=== PATIENT | female | born 1995 | race Caucasian/White ===

== ENCOUNTER 2020-08-26 18:20 | Outpatient (CLI) | payer OTHER ==
[2020-08-26] MEDS ORDERED: METOCLOPRAMIDE 10 MG TABLET PO SCH (19:00)
[2020-08-26 19:10] LABS: BASOPHILS % (AUTO) 0.2 %; EOSINOPHILS # (AUTO) 0.2 10^3/uL (0.0-0.7); EOSINOPHILS % (AUTO) 2.2 %; HGB - HEMOGLOBIN 10.8 g/dL (12.0-16.0); LYMPHOCYTES # (AUTO) 2.2 10^3/uL (1.5-3.5); LYMPHOCYTES % (AUTO) 19.9 %; MEAN CORPUSCULAR HEMOGLOBIN 31.8 pg (27.0-31.0); MEAN CORPUSCULAR HGB CONC 32.9 g/dL (32.0-36.0); MEAN CORPUSCULAR VOLUME 96.5 fL (81.0-99.0); MONOCYTES % (AUTO) 8.8 %; NEUTROPHILS # (AUTO) 7.6 10^3/uL (1.5-6.6); NEUTROPHILS % (AUTO) 67.7 %; PLT - PLATELET COUNT 221 10^3/uL (130-450); RED CELL DISTRIBUTION WIDTH 12.6 % (12.0-15.0); WHITE BLOOD COUNT 11.1 x10^3/uL (4.8-10.8)
[2020-08-26 19:25] LABS: ALBUMIN 2.8 g/dL (3.2-5.5); ALBUMIN/GLOBULIN RATIO 0.7 (1.0-2.2); BILIRUBIN,TOTAL 0.4 mg/dL (0.2-1.0); CALCIUM 8.7 mg/dL (8.5-10.3); CREATININE 0.6 mg/dL (0.4-1.0); TOTAL PROTEIN 6.7 g/dL (6.7-8.2)
[2020-08-26 19:51] LABS: CREATININE,URINE 171.1 mg/dL; PROTEIN/CREATININE RATIO,URINE 0.1 (<=0.2)
[2020-08-26] MEDS ORDERED: oxyCODONE 5 MG TABLET PO PRN (19:58)
--- NOTE | 2020-08-26 19:58 | PROVIDER PROGRESS NOTE ---
- HPI Chief Complaint: Hypertension/PIH Current : Current EDU 12/12/20 Gestation 24 Weeks and 4 Days 6 Para 3 Vital Signs Temperature 99.0 F 08/26/20 19:08 Heart Rate 91 08/26/20 19:08 Respiratory Rate 20 08/26/20 19:08 Blood Pressure 144/96 H 08/26/20 19:08 O2 Saturation 98 08/26/20 19:08 Temperature 99.0 F 08/26/20 19:10 Heart Rate 91 08/26/20 19:08 Respiratory Rate 20 08/26/20 19:08 Blood Pressure 144/96 H 08/26/20 19:08 O2 Saturation 98 08/26/20 19:08 - Procedures Findings: Patient is a 25 yo at 24+4 wga here with headache and mild range blood pressures. Patient reports that she has been having severe headaches starting within the last two weeks. No vision change at present but endorses photophobia with severe RUEDA. No RUQ pain. Has taken tylenol for pain with minimal response. Rated 4-5 across forehead and and up the midline. Hx of pre-eclampsia with IOL at 37 weeks with first and GHTN with following two pregnancies. Has only had one PNC visit with [facility] with at 19 weeks. Moved to [facility] from [place] in June. Short interpregnancy interval with youngest child delivered in 04/2019. Has not yet started ASA. [facility] records not available at present. PMH: gestational HTN and pre-eclampsia PSH: Knee surgeryx2 SOC HX: Lives in [place] with and 3 children Patient and FOB active [employer] T: none E: none D: none Safe at home ROS: As per HPI, otherwise remaining systems are negative GEN: NAD RESP: nl effort CV: RR ABD: gravid, S&NT. No TTP in RUQ EXT: WWP NEURO: A&O PSYCH: appropriate affect EFM 150 mod radames 10 x10 accels intermittent vars--> AGA TOCO: quiet A/P: 25 yo at 24+4 wga here with headache and mild range BPs PIH: mild ranges BPs -PIH labs wnl and P:C 0.1 -RUEDA may be independent of BPs Reglan 10 mg po x1 If not improved, given oxycodone 5 mg po x1 If not improved, review case with M -Stating ASA 81 mg po daily now -Consider possiblilty of CHTN given absence of records FWB: AGA tracing Under observation for RUEDA in the setting of mild gestational HTN DC to home with improvement of RUEDA If unable to clear RUEDA, review with MFM
[2020-08-26] MEDS ORDERED: ASPIRIN CHEW 81 MG TABLET PO SCH (20:00)
[2020-08-26 21:25] VITALS: BP 129/87
== END 2020-08-26 21:55 | disposition home or self-care (01) ==
LOC: WFO 18:20 → FBP 18:21 → WFO 21:55
PROVIDERS: ATTEND Obstetrics & Gynecology
DX: O13.2 Gestational [pregnancy-induced] hypertension without significant proteinuria, second trimester (principal); Z3A.24 24 weeks gestation of pregnancy
CPT/HCPCS: 80053; 82570; 84156; 85025; 99214; A9270

== ENCOUNTER 2020-08-27 12:15 | Emergency (ER) | payer OTHER | END 2020-08-27 12:34 | disposition home or self-care (01) | LOC: ED 12:15 | DX: Z53.21 Procedure and treatment not carried out due to patient leaving prior to being seen by health care provider (principal) | CPT/HCPCS: 99281 ==

== ENCOUNTER 2020-08-27 12:24 | Outpatient (CLI) | payer OTHER ==
[2020-08-27 13:07] VITALS: BP 112/72
[2020-08-27 13:22] LABS: BASOPHILS % (AUTO) 0.3 %; EOSINOPHILS # (AUTO) 0.2 10^3/uL (0.0-0.7); EOSINOPHILS % (AUTO) 1.6 %; HGB - HEMOGLOBIN 10.4 g/dL (12.0-16.0); LYMPHOCYTES # (AUTO) 1.6 10^3/uL (1.5-3.5); LYMPHOCYTES % (AUTO) 15.3 %; MEAN CORPUSCULAR HEMOGLOBIN 31.2 pg (27.0-31.0); MEAN CORPUSCULAR VOLUME 97.6 fL (81.0-99.0); MEAN PLATELET VOLUME 10.3 fL (7.9-10.8); MONOCYTES # (AUTO) 0.8 10^3/uL (0.0-1.0); NEUTROPHILS # (AUTO) 7.6 10^3/uL (1.5-6.6); NEUTROPHILS % (AUTO) 73.7 %; PLT - PLATELET COUNT 222 10^3/uL (130-450); RED BLOOD COUNT 3.33 10^6/uL (4.20-5.40); RED CELL DISTRIBUTION WIDTH 12.8 % (12.0-15.0); WHITE BLOOD COUNT 10.3 x10^3/uL (4.8-10.8)
[2020-08-27 13:27] LABS: ALBUMIN/GLOBULIN RATIO 0.8 (1.0-2.2); BILIRUBIN,TOTAL 0.4 mg/dL (0.2-1.0); CALCIUM 8.5 mg/dL (8.5-10.3); CREATININE 0.5 mg/dL (0.4-1.0); TOTAL PROTEIN 6.7 g/dL (6.7-8.2); URIC ACID 3.5 mg/dL (2.6-7.2)
[2020-08-27 13:43] LABS: CREATININE,URINE 41.7 mg/dL
[2020-08-27 13:50] LABS: TOTAL PROTEIN,URINE TIMED < 6 mg/dL
[2020-08-27] MEDS ORDERED: oxyCODONE 5 MG TABLET PO PRN (13:59)
--- NOTE | 2020-08-30 23:00 | PROVIDER PROGRESS NOTE ---
- HPI Chief Complaint: Other (severe headache) Current : Current EDU 12/12/20 Gestation 24 Weeks and 5 Days 6 Para 3 Vital Signs Temperature 98.4 F 08/27/20 12:35 Heart Rate 97 08/27/20 12:35 Respiratory Rate 16 08/27/20 12:35 Blood Pressure 123/80 08/27/20 12:35 O2 Saturation 96 08/27/20 12:35 Temperature 98.4 F 08/27/20 12:35 Heart Rate 89 08/27/20 13:00 Respiratory Rate 16 08/27/20 13:00 Blood Pressure 112/72 08/27/20 13:00 O2 Saturation 98 08/27/20 13:00 - Exam GEN: NAD HEENT: NCAT CV: RRR RESP: CTAB ABD: gravid, S&NT/ND. No RUQ tenderness EXT: WWP NEURO: Alert and oriented. No photophobia PSYCH: appropriate affect - Procedures NST Procedure: NST Procedure Start Date 08/27/20 Start Time 12:31 Stop Time 13:01 Vibroacoustic Stimulation Used No Patient States Movement Yes EFM 140 mod radames 15x15 accels, occ decels--> AGA TOCO: quiet Service Date of procedure: 08/27/20 Findings: 25 yo at 24+5 wga with headache No elevated blood pressures No concern for pre-eclampsia Provided with oxycodone 5 mg po x1 Prescribed fioricet for maintenance AGA/Cat I tracing for gestational age FU with routine OB care DX: Headache in
== END 2020-08-27 16:40 | disposition home or self-care (01) ==
LOC: WFO 12:24 → FBP 12:25 → WFO 16:40
PROVIDERS: ATTEND Obstetrics & Gynecology
DX: O99.891 Other specified diseases and conditions complicating pregnancy (principal); R51.9 Headache, unspecified; Z3A.24 24 weeks gestation of pregnancy
CPT/HCPCS: 59025; 80053; 82570; 84156; 84550; 85025; A9270

== ENCOUNTER 2020-09-15 12:34 | Outpatient (CLI) | payer OTHER ==
[2020-09-15 13:22] VITALS: BP 122/78
[2020-09-15 13:22] LABS: BILIRUBIN,URINE NEGATIVE (NEGATIVE); GLUCOSE, URINE (UA) NEGATIVE (NEGATIVE); KETONES,URINE (UA) NEGATIVE (NEGATIVE); LEUKOCYTE ESTERASE, URINE NEGATIVE (NEGATIVE); NITRITE,URINE NEGATIVE (NEGATIVE); OCCULT BLOOD,URINE TRACE-INTA (NEGATIVE); PROTEIN,URINE TRACE mg/dL (NEGATIVE); UROBILINOGEN,URINE 0.2 (NORMAL) E.U./dL (NORMAL)
[2020-09-15 13:43] LABS: CLARITY,URINE CLEAR (CLEAR)
[2020-09-15 13:44] LABS: BACTERIA,URINE Rare /HPF (None Seen); RBC,URINE None Seen /HPF (0-5); SQUAMOUS EPITHELIAL CELL,UR MOD Squamous (<= Few)
[2020-09-15 15:08] LABS: BASOPHILS % (AUTO) 0.2 %; EOSINOPHILS # (AUTO) 0.1 10^3/uL (0.0-0.7); EOSINOPHILS % (AUTO) 1.1 %; HGB - HEMOGLOBIN 10.6 g/dL (12.0-16.0); LYMPHOCYTES # (AUTO) 1.8 10^3/uL (1.5-3.5); MEAN CORPUSCULAR HEMOGLOBIN 30.4 pg (27.0-31.0); MEAN CORPUSCULAR HGB CONC 31.7 g/dL (32.0-36.0); MEAN CORPUSCULAR VOLUME 95.7 fL (81.0-99.0); MEAN PLATELET VOLUME 10.5 fL (7.9-10.8); MONOCYTES % (AUTO) 8.7 %; NEUTROPHILS # (AUTO) 8.3 10^3/uL (1.5-6.6); NEUTROPHILS % (AUTO) 72.9 %; PLT - PLATELET COUNT 203 10^3/uL (130-450); RED BLOOD COUNT 3.49 10^6/uL (4.20-5.40); RED CELL DISTRIBUTION WIDTH 12.6 % (12.0-15.0); WHITE BLOOD COUNT 11.4 x10^3/uL (4.8-10.8)
--- NOTE | 2020-09-15 15:14 | Ultrasound Report ---
PROCEDURE: OB Limited INDICATIONS: Cervical length OUTSIDE/PRIOR DATING DATA: No outside imaging available. Ordering physician ELVI is 12/12/2020 TECHNIQUE: Real-time scanning was performed of the fetus, with image documentation. Endovaginal scanning: Was performed COMPARISON: None. FINDINGS: A single living intrauterine gestation is present. Presentation: Cephalic Placenta: Placental position is anterior, without previa. Amniotic fluid index: 20.9 cm, 90% for gestational age. heart rate: 145 beats per minutes. Maternal cervical canal: 4.4 cm long; normal length is 2.5 cm or more. Evaluation of the stomach, kidneys, diaphragm, and facial profile are grossly unremarkable. IMPRESSION: Single living intrauterine with heart rate of 145 bpm in cephalic position. Cervix is closed. No placenta previa. SUSAN measures 20.9 cm. Borderline polyhydramnios. Reviewed by: Yonas Osman DO on 09/15/2020 2:13 PM FERNANDA Approved by: Yonas Osman DO on 09/15/2020 2:13 PM [facility] Station ID: [id number]
--- NOTE | 2020-09-15 15:14 | Ultrasound Report ---
PROCEDURE: OB Limited INDICATIONS: Cervical length OUTSIDE/PRIOR DATING DATA: No outside imaging available. Ordering physician ELVI is 12/12/2020 TECHNIQUE: Real-time scanning was performed of the fetus, with image documentation. Endovaginal scanning: Was performed COMPARISON: None. FINDINGS: A single living intrauterine gestation is present. Presentation: Cephalic Placenta: Placental position is anterior, without previa. Amniotic fluid index: 20.9 cm, 90% for gestational age. heart rate: 145 beats per minutes. Maternal cervical canal: 4.4 cm long; normal length is 2.5 cm or more. Evaluation of the stomach, kidneys, diaphragm, and facial profile are grossly unremarkable. IMPRESSION: Single living intrauterine with heart rate of 145 bpm in cephalic position. Cervix is closed. No placenta previa. SUSAN measures 20.9 cm. Borderline polyhydramnios. Reviewed by: Yonas Osman DO on 09/15/2020 2:13 PM FERNANDA Approved by: Yonas Osman DO on 09/15/2020 2:13 PM [facility] Station ID: [id number]
[2020-09-15 15:17] LABS: ALBUMIN 3.1 g/dL (3.2-5.5); ALBUMIN/GLOBULIN RATIO 0.8 (1.0-2.2); BILIRUBIN,TOTAL 0.4 mg/dL (0.2-1.0); CALCIUM 8.4 mg/dL (8.5-10.3); CREATININE 0.4 mg/dL (0.4-1.0); TOTAL PROTEIN 6.9 g/dL (6.7-8.2)
--- NOTE | 2020-09-15 16:35 | PROVIDER PROGRESS NOTE ---
- HPI Chief Complaint: Other (Abdominal pain) Current : Current EDU 12/12/20 Gestation 27 Weeks and 3 Days 6 Para 3 Vital Signs Temperature 99.7 F 09/15/20 12:51 Heart Rate 93 09/15/20 12:51 Respiratory Rate 18 09/15/20 12:51 Blood Pressure 123/85 H 09/15/20 12:51 O2 Saturation 100 09/15/20 12:51 Temperature 97.9 F 09/15/20 15:45 Heart Rate 88 09/15/20 13:20 Respiratory Rate 16 09/15/20 13:20 Blood Pressure 122/78 09/15/20 13:20 O2 Saturation 98 09/15/20 13:20 HPI: Patient has had lower abdominal pain for the past 2w. Quality is aching, burning, and cramping. Never fully goes away. Worse when changing positions: rolling over, going to sit up or sit down. Better after rest. Radiates to lower back. Location bilateral lower abdomen suprapubic area to 1/[address] up towards the umbilicus. Onset was not associated with anything noticeable. May be getting a bit worse over time but not sure. At its worst can be 7-8/10. At its best is about a 2/10. Has never had this before. Has tried tylenol which helps, baths help. Belly band did not help. ROS: No vaginal bleeding, loss of fluid, fevers, nausea, vomiting, constipation, diarrhea, dysuria, fever, or contractions. PMH remarkable for severe preeclampsia in the past. No hx of delivery. - Exam Alert, smiling, NAD EOM intact No respiratory distress CV: No LE edema Abd soft, tender lower 1/2 of lower abdomen, mild. No rebound or guarding. SVE closed/long/high with RN Fundus is nontender MSK: normal gait Neuro: normal gait Psych: normal affect - Procedures OB Procedure Performed: NST Diagnosis/Indication for NST: Other (Abdominal pain in ) NST Procedure: NST Procedure Start Date 09/15/20 Start Time 12:50 Stop Time 13:28 Vibroacoustic Stimulation Used No Patient States Movement Yes Service Date of procedure: 09/15/20 Procedure Details: Baseline: BPM 140 Variability: Moderate Accelerations: Present Decelerations: Absent Trends in FHR over time: no changes [place] contractions in 10 minutes: 0 Impression: reactive Category 1 NST Findings: Labs: neg FFN, contaminated UA, WBC 11, normal wet mount, normal LFT - Plan Plan: 25yo in 27th week with bilateral lower abdominal pain of c/w musculoskeletal pain. No evidence of UTI, labor, vaginitis, chorioamnionitis, appendicitis, or GI issues. --Has OB FUV in about 2w --Comfort care with rest, warm packs, ice, baths, tylenol --OK to do ibuprofen only for the next 48h and then never again: 400mg po q6h --OK to try chiropractic --F/u sooner PRN increasing pain or new associated symptoms.
[2020-09-15 19:46] LABS: TRICHOMONAS VAGINALIS DNA NEGATIVE (NEGATIVE)
== END 2020-09-15 16:15 | disposition home or self-care (01) ==
LOC: WFO 12:34 → FBP 12:42 → WFO 16:15
PROVIDERS: ATTEND Obstetrics & Gynecology
DX: O99.891 Other specified diseases and conditions complicating pregnancy (principal); R10.30 Lower abdominal pain, unspecified; Z3A.27 27 weeks gestation of pregnancy
CPT/HCPCS: 36415; 59025; 80053; 81001; 82731; 85025; 87086; 87210; 87491; 87591; 87661; 87797; 99213

== ENCOUNTER 2020-09-24 11:25 | Outpatient (CLI) | payer OTHER | END 2020-09-24 11:26 | disposition home or self-care (01) | LOC: LAB 11:25 | PROVIDERS: ATTEND Obstetrics & Gynecology | DX: O09.90 Supervision of high risk pregnancy, unspecified, unspecified trimester (principal); O26.899 Other specified pregnancy related conditions, unspecified trimester; Z67.91 Unspecified blood type, Rh negative | CPT/HCPCS: 36415; 86850 ==

== ENCOUNTER 2020-10-22 07:00 | Outpatient (CLI) | payer OTHER ==
[2020-10-22 16:43] LABS: CREATININE,URINE 262.4 mg/dL; PROTEIN/CREATININE RATIO,URINE 0.1 (<=0.2)
== END 2020-10-22 23:59 | disposition home or self-care (01) ==
LOC: LAB.R 07:00
PROVIDERS: ATTEND Obstetrics & Gynecology
DX: O16.9 Unspecified maternal hypertension, unspecified trimester (principal); O09.90 Supervision of high risk pregnancy, unspecified, unspecified trimester
CPT/HCPCS: 82570; 84156

== ENCOUNTER 2020-10-22 08:13 | Outpatient (CLI) | payer OTHER ==
--- OUTSIDE RECORDS SUMMARY | 2020-11-11 15:52 | EXTERNAL MEDICAL SUMMARY RPT | Continuity of Care Document ---
:1995 Demographics Phone Unavailable Preferred Language Unknown Marital Status Unknown Anabaptism Affiliation Unknown Race Unknown Ethnic Group Unknown Author Organization [facility] Address [address] [id number] Phone Social History date description facility [phone]
== END 2020-10-22 08:14 | disposition home or self-care (01) ==
LOC: LAB 08:13
PROVIDERS: ATTEND Obstetrics & Gynecology
DX: Z53.9 Procedure and treatment not carried out, unspecified reason (principal); O09.90 Supervision of high risk pregnancy, unspecified, unspecified trimester; O15.2 Eclampsia complicating the puerperium; Z36.89 Encounter for other specified antenatal screening; Z67.91 Unspecified blood type, Rh negative

== ENCOUNTER 2020-10-25 12:56 | Outpatient (CLI) | payer OTHER ==
[2020-10-25 14:28] LABS: HCT - HEMATOCRIT 31.5 % (37.0-47.0); HGB - HEMOGLOBIN 9.7 g/dL (12.0-16.0); MEAN CORPUSCULAR HEMOGLOBIN 28.4 pg (27.0-31.0); MEAN CORPUSCULAR HGB CONC 30.8 g/dL (32.0-36.0); MEAN CORPUSCULAR VOLUME 92.1 fL (81.0-99.0); MEAN PLATELET VOLUME 10.5 fL (7.9-10.8); RED BLOOD COUNT 3.42 10^6/uL (4.20-5.40); RED CELL DISTRIBUTION WIDTH 13.1 % (12.0-15.0); WHITE BLOOD COUNT 9.7 x10^3/uL (4.8-10.8)
[2020-10-25 20:19] LABS: ESTIMATED AVERAGE GLUCOSE 97 mg/dL (70-100)
== END 2020-10-25 12:57 | disposition home or self-care (01) ==
LOC: LAB 12:56
PROVIDERS: ATTEND Obstetrics & Gynecology
DX: O09.90 Supervision of high risk pregnancy, unspecified, unspecified trimester (principal); O16.9 Unspecified maternal hypertension, unspecified trimester; Z36.89 Encounter for other specified antenatal screening
CPT/HCPCS: 36415; 82950; 83036; 85027

== ENCOUNTER 2020-10-25 14:19 | Outpatient (CLI) | payer OTHER ==
[2020-10-25 14:30] VITALS: BP 124/83
--- NOTE | 2020-10-25 21:10 | PROCEDURE REPORT ---
- HPI Diagnosis/Indication for NST: Gestational Hypertension Current EDU 12/12/20 Gestation 33 Weeks and 1 Days 6 Para 3 Vital Signs Temperature 98.6 F 10/25/20 14:28 Heart Rate 99 10/25/20 14:28 Respiratory Rate 16 10/25/20 14:28 Blood Pressure 124/83 H 10/25/20 14:28 O2 Saturation 100 10/25/20 14:28 Temperature 98.6 F 10/25/20 14:28 Heart Rate 99 10/25/20 14:28 Respiratory Rate 16 10/25/20 14:28 Blood Pressure 124/83 H 10/25/20 14:28 O2 Saturation 100 10/25/20 14:28 - NST Procedure NST Procedure Start Date 10/25/20 Start Time 14:21 Stop Time 14:49 Vibroacoustic Stimulation Used No Patient States Movement Yes EFM 130 mod radames 15x15 accels no decels TOCO: Quiet - Results and Plan Findings/Impression: 25 yo at 33+1 wga with affected by gestational HTN and hx of pre- eclampsia here for NST Cat I tracing Growth us scheduled for Wednesday Cont with twice weekly NST and weekly SUSAN IOL at 39 wga
== END 2020-10-25 15:15 | disposition home or self-care (01) ==
LOC: WFO 14:19 → FBP 14:20 → WFO 15:15
PROVIDERS: ATTEND Obstetrics & Gynecology
DX: O09.90 Supervision of high risk pregnancy, unspecified, unspecified trimester (principal); O13.3 Gestational [pregnancy-induced] hypertension without significant proteinuria, third trimester; Z3A.33 33 weeks gestation of pregnancy; Z36.89 Encounter for other specified antenatal screening
CPT/HCPCS: 36415; 59025; 82950; 83036; 85027

== ENCOUNTER 2020-10-28 20:01 | Outpatient (CLI) | payer OTHER ==
--- NOTE | 2020-10-29 10:39 | Ultrasound Report ---
PROCEDURE: OB F/U or Repeat INDICATIONS: CHRONIC HTN, SUPERVISION HIGH RISK OUTSIDE/PRIOR DATING DATA: Last menstrual period (LMP): Unknown LMP-based estimated date of delivery (ELVI): Unknown. First dating scan (date and location): 09/15/2020. Estimated date of delivery (ELVI) from first dating scan: 12/12/2020 (provider stated). TECHNIQUE: Real-time scanning was performed of the fetus, with image documentation and biometric measurements. Endovaginal scanning: None COMPARISON: 09/15/2020. FINDINGS: General: A single living intrauterine gestation is present. Presentation: Cephalic Placenta: Placental position is anterior, without previa. Amniotic fluid index: 15.7 cm cm, 59th percentile for gestational age. Largest pocket 4.6 cm. heart rate: 141 beats per minute. Maternal cervical canal: 3.2 cm long; normal length is 2.5 cm or more. biometrics: Biparietal diameter: 8.5 cm, 34 weeks 0 days Head circumference: 30.8 cm, 34 weeks 2 days Abdominal circumference: 29.7 cm, 33 weeks 4 days Femur length: 6.2 cm, 32 weeks 0 days Estimated gestational age from initial scan: 33 weeks 4 days. Composite gestational age from present scan: 33 weeks 3 days Estimated weight and percentile: 3156 g, 33rd percentile Measurement variability in biometric dating: +/- 10 days from 12-20 weeks gestation, +/- 2 weeks from 20-30 weeks gestation, +/- 3 weeks at 30 weeks gestation or more. Other: Not applicable. IMPRESSION: Single living intrauterine fetus in cephalic presentation. Expected interval growth. Normal SUSAN Reviewed by: Jules Vega MD on 10/29/2020 10:38 AM PDT Approved by: Jules Vega MD on 10/29/2020 10:38 AM PDT Station ID: [id number]
== END 2020-10-28 20:02 | disposition home or self-care (01) ==
LOC: DI 20:01
PROVIDERS: ATTEND Obstetrics & Gynecology
DX: O10.913 Unspecified pre-existing hypertension complicating pregnancy, third trimester (principal); Z3A.33 33 weeks gestation of pregnancy

== ENCOUNTER 2020-10-29 09:50 | Outpatient (CLI) | payer OTHER ==
[2020-10-29 10:04] VITALS: BP 121/82
--- NOTE | 2020-10-29 17:25 | PROCEDURE REPORT ---
- HPI Diagnosis/Indication for NST: Pre- Hypertension Current EDU 12/12/20 Gestation 33 Weeks and 5 Days 6 Para 3 Vital Signs Temperature 98.6 F 10/29/20 10:00 Heart Rate 98 10/29/20 10:00 Respiratory Rate 16 10/29/20 10:00 Blood Pressure 121/82 H 10/29/20 10:00 Temperature 98.6 F 10/29/20 10:00 Heart Rate 98 10/29/20 10:00 Respiratory Rate 16 10/29/20 10:00 Blood Pressure 121/82 H 10/29/20 10:00 O2 Saturation - NST Procedure NST Procedure Start Date 10/29/20 Start Time 09:57 Stop Time 10:27 Vibroacoustic Stimulation Used No Patient States Movement Yes EFM 135 mod radames 15x15 accels no decels TOCO: quiet - Results and Plan Findings/Impression: 25 yo at 33+ 5 wga with affected by CHTN here for NST Cat I tracing Cont with twice weekly NST and weekly SUSAN
--- OUTSIDE RECORDS SUMMARY | 2020-11-12 16:07 | EXTERNAL MEDICAL SUMMARY RPT | Continuity of Care Document ---
:1995 Demographics Phone Unavailable Preferred Language Unknown Marital Status Unknown Bahai Affiliation Unknown Race Unknown Ethnic Group Unknown Author Organization [facility] Address [address] [place] [address] Phone Social History date description facility [phone]
== END 2020-10-29 10:30 | disposition home or self-care (01) ==
LOC: WFO 09:50 → FBP 09:52 → WFO 10:30
PROVIDERS: ATTEND Obstetrics & Gynecology
DX: O10.913 Unspecified pre-existing hypertension complicating pregnancy, third trimester (principal); Z3A.33 33 weeks gestation of pregnancy
CPT/HCPCS: 59025

== ENCOUNTER 2020-11-01 14:16 | Outpatient (CLI) | payer OTHER ==
[2020-11-01 14:31] VITALS: BP 129/80
--- OUTSIDE RECORDS SUMMARY | 2020-11-12 20:02 | EXTERNAL MEDICAL SUMMARY RPT | Continuity of Care Document ---
:1995 Demographics Phone Unavailable Preferred Language Unknown Marital Status Unknown Judaism Affiliation Unknown Race Unknown Ethnic Group Unknown Author Organization [facility] Address [address] [place] [address] Phone Social History date description facility [phone]
--- NOTE | 2020-11-13 10:09 | PROCEDURE REPORT ---
- HPI Diagnosis/Indication for NST: Pre- Hypertension Current EDU 12/12/20 Gestation 34 Weeks and 1 Days 6 Para 3 Vital Signs Temperature 37.1 C 11/01/20 14:29 Heart Rate 92 11/01/20 14:29 Respiratory Rate 17 11/01/20 14:29 Blood Pressure 129/80 11/01/20 14:29 O2 Saturation 99 11/01/20 14:29 Temperature 37.1 C 11/01/20 14:29 Heart Rate 92 11/01/20 14:29 Respiratory Rate 17 11/01/20 14:29 Blood Pressure 129/80 11/01/20 14:29 O2 Saturation 99 11/01/20 14:29 - NST Procedure NST Procedure Start Date 11/01/20 Start Time 14:24 Stop Time 15:02 Vibroacoustic Stimulation Used Yes - Results and Plan Findings/Impression: reactive NST Plan: continue Antinatal testing
== END 2020-11-01 15:05 | disposition home or self-care (01) ==
LOC: WFO 14:16 → FBP 14:18 → WFO 15:05
PROVIDERS: ATTEND Obstetrics & Gynecology
DX: O10.913 Unspecified pre-existing hypertension complicating pregnancy, third trimester (principal); Z3A.34 34 weeks gestation of pregnancy
CPT/HCPCS: 59025

== ENCOUNTER 2020-11-05 11:14 | Outpatient (CLI) | payer OTHER ==
[2020-11-05 11:36] VITALS: BP 156/82
[2020-11-05 11:47] LABS: BASOPHILS % (AUTO) 0.2 %; EOSINOPHILS # (AUTO) 0.1 10^3/uL (0.0-0.7); HCT - HEMATOCRIT 33.1 % (37.0-47.0); HGB - HEMOGLOBIN 10.4 g/dL (12.0-16.0); LYMPHOCYTES # (AUTO) 1.6 10^3/uL (1.5-3.5); LYMPHOCYTES % (AUTO) 14.2 %; MEAN CORPUSCULAR HGB CONC 31.4 g/dL (32.0-36.0); MEAN PLATELET VOLUME 10.9 fL (7.9-10.8); MONOCYTES # (AUTO) 0.7 10^3/uL (0.0-1.0); MONOCYTES % (AUTO) 6.5 %; NEUTROPHILS # (AUTO) 8.6 10^3/uL (1.5-6.6); NEUTROPHILS % (AUTO) 76.9 %; NRBC ABSOLUTE COUNT (AUTO) 0.02 x10^3/uL; NUCLEATED RED BLOOD CELLS AUTO 0.2 /100WBC; PLT - PLATELET COUNT 179 10^3/uL (130-450); RED BLOOD COUNT 3.72 10^6/uL (4.20-5.40); RED CELL DISTRIBUTION WIDTH 13.4 % (12.0-15.0); WHITE BLOOD COUNT 11.1 x10^3/uL (4.8-10.8)
[2020-11-05 11:58] LABS: ALBUMIN 2.8 g/dL (3.2-5.5); ALBUMIN/GLOBULIN RATIO 0.7 (1.0-2.2); BILIRUBIN,TOTAL 0.2 mg/dL (0.2-1.0); CALCIUM 9.9 mg/dL (8.5-10.3); CREATININE 0.5 mg/dL (0.4-1.0); POTASSIUM 3.6 mmol/L (3.5-5.0)
[2020-11-05 12:01] LABS: CREATININE,URINE 129.1 mg/dL; PROTEIN/CREATININE RATIO,URINE 0.2 (<=0.2)
--- NOTE | 2020-11-06 11:45 | PROCEDURE REPORT ---
- HPI Diagnosis/Indication for NST: Pre- Hypertension Current EDU 12/12/20 Gestation 34 Weeks and 5 Days 6 Para 3 Vital Signs Temperature 36.8 C 11/05/20 11:32 Respiratory Rate 16 11/05/20 11:32 Blood Pressure 156/82 H 11/05/20 11:32 O2 Saturation 99 11/05/20 11:32 Temperature 36.8 C 11/05/20 11:32 Heart Rate Respiratory Rate 16 11/05/20 11:32 Blood Pressure 156/82 H 11/05/20 11:32 O2 Saturation 99 11/05/20 11:32 - NST Procedure NST Procedure Start Date 11/05/20 Start Time 11:20 Stop Time 12:30 Vibroacoustic Stimulation Used No Patient States Movement Yes - Results and Plan Findings/Impression: reactive NST Plan: continue NST and BP monitoring
--- NOTE | 2020-11-06 11:56 | PROCEDURE REPORT ---
- HPI Current EDU 12/12/20 Gestation 34 Weeks and 5 Days 6 Para 3 Vital Signs Temperature 36.8 C 11/05/20 11:32 Respiratory Rate 16 11/05/20 11:32 Blood Pressure 156/82 H 11/05/20 11:32 O2 Saturation 99 11/05/20 11:32 Temperature 36.8 C 11/05/20 11:32 Heart Rate Respiratory Rate 16 11/05/20 11:32 Blood Pressure 156/82 H 11/05/20 11:32 O2 Saturation 99 11/05/20 11:32 - NST Procedure NST Procedure Start Date 11/05/20 Start Time 11:20 Stop Time 12:30 Vibroacoustic Stimulation Used No Patient States Movement Yes - Results and Plan Findings/Impression: Reactive NST Chronic HTN Plan: Start labetolol 100 mg bid Betamethazone 12 mg IM
--- OUTSIDE RECORDS SUMMARY | 2020-11-12 22:30 | EXTERNAL MEDICAL SUMMARY RPT | Continuity of Care Document ---
:1995 Demographics Phone Unavailable Preferred Language Unknown Marital Status Unknown Mosque Affiliation Unknown Race Unknown Ethnic Group Unknown Author Organization [facility] Address [address] [place] [address] Phone Social History date description facility [phone]
== END 2020-11-05 12:35 | disposition home or self-care (01) ==
LOC: WFO 11:14 → FBP 11:18 → WFO 12:35
PROVIDERS: ATTEND Obstetrics & Gynecology
DX: O10.913 Unspecified pre-existing hypertension complicating pregnancy, third trimester (principal); Z3A.34 34 weeks gestation of pregnancy
CPT/HCPCS: 59025; 80053; 82570; 84156; 85025

== ENCOUNTER 2020-11-08 09:19 | Outpatient (CLI) | payer OTHER ==
--- NOTE | 2020-11-08 10:38 | Ultrasound Report ---
PROCEDURE: OB Limited INDICATIONS: CHRONIC HTN, SUPERVISION OF HIGH RISK OUTSIDE/PRIOR DATING DATA: Estimated date of delivery (ELVI) per referring physician: 12/12/2020. TECHNIQUE: Real-time scanning was performed of the fetus, with image documentation. Endovaginal scanning: Not performed COMPARISON: None. FINDINGS: A single living intrauterine gestation is present. Presentation: Cephalic Placenta: Placental position is anterior, without previa. Amniotic fluid index: 12.6 cm, largest pocket 5.3 cm cm, 35th percentile for gestational age. heart rate: 137 beats per minutes. Maternal cervical canal: 3.0 cm long; normal length is 2.5 cm or more. Estimated gestational age from initial scan: 35 weeks 1 day. IMPRESSION: Single live intrauterine gestation with normal SUSAN Reviewed by: Shemar Vazquez MD on 11/08/2020 10:37 AM PDT Approved by: Shemar Vazquez MD on 11/08/2020 10:37 AM PDT Station ID: [id number]
--- OUTSIDE RECORDS SUMMARY | 2020-11-13 01:40 | EXTERNAL MEDICAL SUMMARY RPT | Continuity of Care Document ---
:1995 Demographics Phone Unavailable Preferred Language Unknown Marital Status Unknown Orthodoxy Affiliation Unknown Race Unknown Ethnic Group Unknown Author Organization [facility] Address [address] [place] [address] Phone Social History date description facility [phone]
== END 2020-11-08 09:20 | disposition home or self-care (01) ==
LOC: DI 09:19
PROVIDERS: ATTEND Obstetrics & Gynecology
DX: O16.3 Unspecified maternal hypertension, third trimester (principal); O09.93 Supervision of high risk pregnancy, unspecified, third trimester; Z3A.35 35 weeks gestation of pregnancy

== ENCOUNTER 2020-11-08 09:59 | Outpatient (CLI) | payer OTHER ==
[2020-11-08 10:20] VITALS: BP 153/99
--- NOTE | 2020-11-09 09:41 | PROCEDURE REPORT ---
- HPI Diagnosis/Indication for NST: Other (chronic hypertension) Current EDU 12/12/20 Gestation 35 Weeks and 1 Days 6 Para 3 Vital Signs Temperature 98.8 F 11/08/20 10:18 Heart Rate 103 H 11/08/20 10:18 Respiratory Rate 16 11/08/20 10:18 Blood Pressure 153/99 H 11/08/20 10:18 O2 Saturation 100 11/08/20 10:18 Temperature 98.8 F 11/08/20 10:18 Heart Rate 103 H 11/08/20 10:18 Respiratory Rate 16 11/08/20 10:18 Blood Pressure 153/99 H 11/08/20 10:18 O2 Saturation 100 11/08/20 10:18 - NST Procedure NST Procedure Start Date 11/08/20 Start Time 10:13 Stop Time 10:47 Vibroacoustic Stimulation Used No - Results and Plan Findings/Impression: Baseline: BPM 130 Variability: Moderate Accelerations: Present Decelerations: Absent Trends in FHR over time: no changes [place] contractions in 10 minutes: 0 Impression: reactive Category 1 NST
--- OUTSIDE RECORDS SUMMARY | 2020-11-13 01:44 | EXTERNAL MEDICAL SUMMARY RPT | Continuity of Care Document ---
:1995 Demographics Phone Unavailable Preferred Language Unknown Marital Status Unknown Buddhism Affiliation Unknown Race Unknown Ethnic Group Unknown Author Organization [facility] Address [address] [place] [address] Phone Social History date description facility [phone]
== END 2020-11-08 10:45 | disposition home or self-care (01) ==
LOC: WFO 09:59 → FBP 10:00 → WFO 10:45
PROVIDERS: ATTEND Obstetrics & Gynecology
DX: O09.93 Supervision of high risk pregnancy, unspecified, third trimester (principal); O10.913 Unspecified pre-existing hypertension complicating pregnancy, third trimester; Z3A.35 35 weeks gestation of pregnancy
CPT/HCPCS: 59025

== ENCOUNTER 2020-11-13 10:18 | Outpatient (CLI) | payer OTHER ==
[2020-11-13 10:27] VITALS: BP 141/81
--- NOTE | 2020-11-13 11:05 | PROCEDURE REPORT ---
- HPI Diagnosis/Indication for NST: Other (Chronic hypertension) Current EDU 12/12/20 Gestation 35 Weeks and 6 Days 6 Para 3 Vital Signs Temperature 99.5 F 11/13/20 10:24 Heart Rate 100 11/13/20 10:24 Respiratory Rate 18 11/13/20 10:24 Blood Pressure 141/81 H 11/13/20 10:24 O2 Saturation 100 11/13/20 10:24 Temperature 99.5 F 11/13/20 10:24 Heart Rate 100 11/13/20 10:24 Respiratory Rate 18 11/13/20 10:24 Blood Pressure 141/81 H 11/13/20 10:24 O2 Saturation 100 11/13/20 10:24 - NST Procedure NST Procedure Start Date 11/13/20 Start Time 10:24 Stop Time 10:45 Vibroacoustic Stimulation Used No Patient States Movement Yes - Results and Plan Findings/Impression: Baseline: BPM 130 Variability: Moderate Accelerations: Present Decelerations: Absent Trends in FHR over time: no changes [place] contractions in 10 minutes: 0 Impression: reactive Category 1 NST
== END 2020-11-13 10:50 | disposition home or self-care (01) ==
LOC: WFO 10:18 → FBP 10:19 → WFO 10:50
PROVIDERS: ATTEND Obstetrics & Gynecology
DX: O10.913 Unspecified pre-existing hypertension complicating pregnancy, third trimester (principal); Z3A.35 35 weeks gestation of pregnancy
CPT/HCPCS: 59025

== ENCOUNTER 2020-11-15 09:21 | Outpatient (CLI) | payer OTHER ==
--- NOTE | 2020-11-15 14:27 | Ultrasound Report ---
PROCEDURE: OB Limited INDICATIONS: CHRONIC HTN, SUPERVISION OF HIGH RISK TECHNIQUE: Real-time scanning was performed of the fetus, with image documentation. Endovaginal scanning: Not needed COMPARISON: Physician stated the delivery date 12/12/2020. FINDINGS: A single living intrauterine gestation is present. Presentation: Vertex Placenta: Placental position is anterior, without previa. Amniotic fluid index: 14.2 cm, normal for gestational age. heart rate: 162 beats per minutes. Maternal cervical canal: Not well seen due to position . Estimated gestational age from initial scan: 36 weeks 1 day. IMPRESSION: Normal amniotic fluid index, study limited at clinician request. Reviewed by: Nelson Mckeon MD on 11/15/2020 2:25 PM PDT Approved by: Nelson Mckeon MD on 11/15/2020 2:25 PM PDT Station ID: [id number]
--- NOTE | 2020-11-15 15:28 | PROCEDURE REPORT ---
- HPI Diagnosis/Indication for NST: Other (Chronic hypertension) - NST Procedure NST Procedure Start Time 10:24 Stop Time 10:45 - Results and Plan Findings/Impression: Baseline: BPM 155 Variability: Moderate Accelerations: Present Decelerations: Absent Trends in FHR over time: no changes [place] contractions in 10 minutes: 0 Impression: reactive Category 1 NST
== END 2020-11-15 09:22 | disposition home or self-care (01) ==
LOC: DI 09:21
PROVIDERS: ATTEND Obstetrics & Gynecology
DX: O09.93 Supervision of high risk pregnancy, unspecified, third trimester (principal); O16.3 Unspecified maternal hypertension, third trimester; Z3A.36 36 weeks gestation of pregnancy

== ENCOUNTER 2020-11-15 10:08 | Outpatient (CLI) | payer OTHER ==
[2020-11-15 10:23] VITALS: BP 120/74
== END 2020-11-15 10:50 | disposition home or self-care (01) ==
LOC: WFO 10:08 → FBP 10:15 → WFO 10:50
PROVIDERS: ATTEND Obstetrics & Gynecology
DX: O09.93 Supervision of high risk pregnancy, unspecified, third trimester (principal); O10.919 Unspecified pre-existing hypertension complicating pregnancy, unspecified trimester; Z3A.38 38 weeks gestation of pregnancy; Z3A.00 Weeks of gestation of pregnancy not specified
CPT/HCPCS: 59025

== ENCOUNTER 2020-11-19 08:00 | Outpatient (CLI) | payer OTHER | END 2020-11-19 23:59 | disposition home or self-care (01) | LOC: LAB.R 08:00 | PROVIDERS: ATTEND Obstetrics & Gynecology | DX: Z36.85 Encounter for antenatal screening for Streptococcus B (principal) | CPT/HCPCS: 87797 ==

== ENCOUNTER 2020-11-19 11:29 | Outpatient (CLI) | payer OTHER ==
[2020-11-19 12:55] VITALS: BP 121/71
--- NOTE | 2020-11-19 15:18 | PROCEDURE REPORT ---
- HPI Diagnosis/Indication for NST: Pre- Hypertension Current EDU 12/12/20 Gestation 36 Weeks and 5 Days 6 Para 3 Vital Signs Temperature 99.0 F 11/19/20 11:39 Heart Rate 80 11/19/20 11:39 Respiratory Rate 18 11/19/20 11:39 Blood Pressure 121/71 11/19/20 11:39 O2 Saturation 100 11/19/20 11:39 Temperature 99.0 F 11/19/20 11:39 Heart Rate 80 11/19/20 11:39 Respiratory Rate 18 11/19/20 11:39 Blood Pressure 121/71 11/19/20 11:39 O2 Saturation 100 11/19/20 11:39 - NST Procedure NST Procedure Start Date 11/19/20 Start Time 11:35 Stop Time 12:23 Vibroacoustic Stimulation Used No Patient States Movement Yes - Results and Plan Findings/Impression: Baseline: BPM 130 Variability: Moderate Accelerations: Present Decelerations: Absent Trends in FHR over time: no changes [place] contractions in 10 minutes: 0 Impression: reactive Category 1 NST
== END 2020-11-19 12:30 | disposition home or self-care (01) ==
LOC: WFO 11:29 → FBP 11:31 → WFO 12:30
PROVIDERS: ATTEND Obstetrics & Gynecology
DX: O10.913 Unspecified pre-existing hypertension complicating pregnancy, third trimester (principal); Z3A.36 36 weeks gestation of pregnancy; Z36.85 Encounter for antenatal screening for Streptococcus B
CPT/HCPCS: 59025; 87797

== ENCOUNTER 2020-11-22 15:23 | Inpatient (IN) | payer OTHER ==
[2020-11-22] MEDS ORDERED: TRANEXAMIC ACID IN NACL 1,000 MG/100 ML BAG IV PRN (16:19)
[2020-11-22] MEDS ORDERED: LABETALOL 5 MG/1 ML 20 ML MDV IVP PRN (16:19)
[2020-11-22] MEDS ORDERED: METHYLERGONOVINE 0.2 MG/ML VIAL IM PRN (16:19)
[2020-11-22] MEDS ORDERED: NIFEdipine 10 MG CAPSULE PO PRN (16:19)
[2020-11-22] MEDS ORDERED: LIDOCAINE-MPF 1% 30 ML VIAL ID PRN (16:19)
[2020-11-22] MEDS ORDERED: OXYTOCIN 10 UNIT/ML VIAL IM PRN (16:19)
[2020-11-22] MEDS ORDERED: CARBOPROST TROMETHAMINE 250 MCG/ML AMP IM PRN (16:19)
[2020-11-22] MEDS ORDERED: LABETALOL 20 MG/4 ML SYRINGE IVP PRN ×2 (16:19)
[2020-11-22] MEDS ORDERED: miSOPROStoL 200 MCG TABLET BC PRN (16:19)
[2020-11-22] MEDS ORDERED: hydrALAZINE INJ 20 MG/ML VIAL IVP PRN ×2 (16:19)
[2020-11-22] MEDS ORDERED: OXYTOCIN/SODIUM CHLORIDE 500 ML IV PRN ×2 (16:19→16:26)
[2020-11-22] MEDS ORDERED: METOCLOPRAMIDE 10 MG/2 ML VIAL IVP PRN (16:26)
[2020-11-22] MEDS ORDERED: TERBUTALINE 1 MG/ML VIAL SUBQ PRN (16:26)
--- OUTSIDE RECORDS SUMMARY | 2020-11-22 16:39 | EXTERNAL MEDICAL SUMMARY RPT | Continuity of Care Document ---
:1995 Demographics Phone Unavailable Preferred Language Unknown Marital Status Unknown Buddhist Affiliation Unknown Race Unknown Ethnic Group Unknown Author Organization [facility] Address [address] [phone] Phone Social History date description facility [phone]
[2020-11-22] MEDS ORDERED: OXYTOCIN/SODIUM CHLORIDE 500 ML IV SCH (17:00)
[2020-11-22 17:02] LABS: BASOPHILS % (AUTO) 0.2 %; EOSINOPHILS # (AUTO) 0.1 10^3/uL (0.0-0.7); EOSINOPHILS % (AUTO) 0.9 %; HCT - HEMATOCRIT 31.9 % (37.0-47.0); HGB - HEMOGLOBIN 9.9 g/dL (12.0-16.0); LYMPHOCYTES # (AUTO) 1.8 10^3/uL (1.5-3.5); LYMPHOCYTES % (AUTO) 19.7 %; MEAN CORPUSCULAR HEMOGLOBIN 26.8 pg (27.0-31.0); MEAN CORPUSCULAR VOLUME 86.4 fL (81.0-99.0); MEAN PLATELET VOLUME 11.6 fL (7.9-10.8); MONOCYTES # (AUTO) 0.9 10^3/uL (0.0-1.0); MONOCYTES % (AUTO) 10.1 %; NEUTROPHILS # (AUTO) 6.4 10^3/uL (1.5-6.6); NEUTROPHILS % (AUTO) 68.2 %; NRBC ABSOLUTE COUNT (AUTO) 0.03 x10^3/uL; NUCLEATED RED BLOOD CELLS AUTO 0.3 /100WBC; PLT - PLATELET COUNT 215 10^3/uL (130-450); RED BLOOD COUNT 3.69 10^6/uL (4.20-5.40); RED CELL DISTRIBUTION WIDTH 14.3 % (12.0-15.0); WHITE BLOOD COUNT 9.3 x10^3/uL (4.8-10.8)
[2020-11-22] MEDS: miSOPROStoL 100 MCG TABLET BC SCH ×2 (17:06→21:17)
[2020-11-22 17:14] LABS: ALBUMIN 3.1 g/dL (3.2-5.5); ALBUMIN/GLOBULIN RATIO 0.8 (1.0-2.2); BILIRUBIN,TOTAL 0.6 mg/dL (0.2-1.0); CALCIUM 9.3 mg/dL (8.5-10.3); CREATININE 0.5 mg/dL (0.4-1.0); POTASSIUM 3.5 mmol/L (3.5-5.0)
--- NOTE | 2020-11-22 17:18 | HISTORY & PHYSICAL EXAMINATION ---
Admit History - Visit Reason Visit Reason: Other (IOL for GHTN) - : 6 Parity: 3 Risk/History: positive: labor <37 weeks, induced HTN Complications This : positive: induced HTN - Mother's Labs Mother's Blood Type: positive: A Mother's RH: positive: Negative GBS: positive: Group B Step Negative Rubella Status: positive: Immune - Other Maternal History Other Maternal History: Patient is a 25 yo here for IOL for GHTN. Patient transferred care from [facility] at approximately 28 weeks. Has a hx of pre- eclampsia and PIH. Developed mild range pressures on 08/29/20 after 20 weeks GHTN. Has had multiple episodes of mild range pressures with normal PIH labs. Presents today for IOL. Consents signed in clinic on 11/19/20. SVE in clinic on 11/19/20 was 09/07/high. No PIH symptoms today. Reports BLE edema after along car trip. No CTX/VB/LOF. x3. No STIs. Specifically denies HSV. No abnl pap smears. Normal pap last year in [place]. Having a boy. Mother at 35 from [facility]. 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 Patient believes she was tested prior to her knee surgery for coagulopathy. Past Medical History: Reviewed and updated today: Anxiety Depression Past Surgical History: Reviewed history from 09/03/2020 and no changes required: Sum[place] Teeth (2012, 2016) Knee Surgery (2009) SOC HX: Past Medical History: Reviewed and updated today: Anxiety Depression Past Surgical History: Reviewed history from 09/03/2020 and no changes required: Sumter Teeth (2012, 2016) Knee Surgery (2009) history as follows: DATING: LMP 03/07/2020 gives ELVI 12/12/20 US on 07/22/20 at 19w5d gives ELVI 12/11/20; cwd Hx of GHTN/Pre-E: Review of records shows isolated elevated BP of 135/90 on 08/29/20. -at 36 week visit had elevated pressures and persistent on repeat. Mild range -No abnls prior to 20 weeks; meets criteria for GHTN CHRONIC RUEDA IN : not addressed this visit; no symptoms -Failed reglan and fioricet -Trial of magnesium, some improvement RH NEG: -Rhogam given at 28 weeks after Ab screen confirmed A neg/Ab screen neg RHOGAM completed at 28 weeks Rub immune/VZV imm QUAD: declined FAS 07/29/20 EFW 41%ile, anterior placenta, 3VC, normal FAS Facies cleared on 09/15/20 us Rhogam complete TDAP complete Glucola 111 HSV: Denies GBS: collected today MOD: IOL at 37 weeks 2/2 GHTN. Consents signed in clinic. Confirmed vertex. Unfavorable cervix Contraception TBD Pap wnl 2018, confirmed in [facility] notes Meds/Allgy - Home Medications Home Medications: Ambulatory Orders Medication Instructions Recorded Confirmed Aspirin [Aspirin EC] 81 mg PO DAILY #90 tablet. 08/26/20 Metoclopramide [Reglan] 10 mg PO Q6H PRN #30 tablet 08/26/20 Butalb/Acetaminophen/Caffeine 1 each PO Q4HR PRN #60 capsule MDD 08/27/20 [Fioricet 50-300-40 mg Capsule] 6 - Allergies Allergies/Adverse Reactions: Allergies Allergy/AdvReac Type Severity Reaction Status Date / Time Sulfa (Sulfonamide Allergy Hives Verified 11/22/20 16:24 Antibiotics) Review of Systems - Other Findings Other Findings: As per HPI, otherwise remaining systems are negative. Physical - Abdominal Exam Vital Signs: 144/82 99 36.5 Contraction Frequency (min/apart): intermittent Contraction Intensity: positive: Mild Uterine Resting Tone: positive: Soft - Monitoring Heart Rate Baseline: 125 mod radames 15x15 accels no decels Strip Review: positive: Category I - Presentation Presentation: positive: Vertex - Vaginal Exam Membranes: positive: Membranes intact Dilation (in cm): 1 Effacement (%): 30 Station: positive: -2 Cervical Position: positive: Posterior - Speculum Exam Speculum Exam Performed: positive: No - Other Notes Labor Progress Note/Additional Text: GEN: NAD HEENT: NCAT, no scleral icterus or conjunctival injection CV: RR RESP: nl effort ABD: gravid, S&NT/ND Vertex by BSUS EXT: WWP, symmetric, no cords or TTP. BLE 1+ to tibial plate NEURO: A&O, normal gait and coordination PSYCH: appropriate affect Plan for Labor - Plan For Labor Plan for Labor: 25 yo at 37+1 wga here for IOL for GHTN IOL: Unfavorable cervix -Cervical riepning with miso 50 mcg BC Q4H for 6 doses -possibly Nettles balloon -AROM as appropriate. Needs epidural prior to AROM -Pitocin when favorable FWB: Vertex, GBS neg, well grown, Cat I tracing -CEFM PAIN: Desires epidural . Do not AROM without epidural in place. -Fentanyl 50 mcg IV to max cumulative dose of 200 mcg and not to be given after 7 cm -Nitrous oxide as desired. Will T&C for 2 units as entering grand-multiparity with IOL In-patient care
[2020-11-22 17:19] LABS: CREATININE,URINE 192.2 mg/dL; PROTEIN/CREATININE RATIO,URINE 0.2 (<=0.2)
--- NOTE | 2020-11-22 21:08 | ANESTHESIA ---
Pre-Anesthesia VS, & Labs - Diagnosis labor induction - Procedure epidural Vital Signs: Temp Pulse Resp BP Pulse Ox 36.5 C 11/22/20 17:00 Height: 5 ft 5 in Weight (kg): 88.451 kg Body Mass Index: 32.4 BMI Classification: Obese - NPO Other - Is Patient ?: Yes - Lab Results Current Lab Results: Laboratory Tests 11/22/20 18:38: Blood Type Recheck A NEGATIVE 11/22/20 16:00: Sodium 135, Potassium 3.5, Chloride 106, Carbon Dioxide 21, Anion Gap 8.0, BUN 6, Creatinine 0.5, Estimated GFR (MDRD) 150, Glucose 65 L, Calcium 9.3, Total Bilirubin 0.6, AST 21, ALT 17, Alkaline Phosphatase 140 H, Total Protein 7.0, Albumin 3.1 L, Globulin 3.9, Albumin/Globulin Ratio 0.8 L 11/22/20 16:00: Blood Type A NEGATIVE, Antibody Screen NEGATIVE, Crossmatch IS Only See Detail 11/22/20 16:00: WBC 9.3, RBC 3.69 L, Hgb 9.9 L, Hct 31.9 L, MCV 86.4, MCH 26.8 L , MCHC 31.0 L, RDW 14.3, Plt Count 215, MPV 11.6 H, Neut # (Auto) 6.4, Lymph # (Auto) 1.8, Bell # (Auto) 0.9, Eos # (Auto) 0.1, Baso # (Auto) 0.0, Absolute Nucleated RBC 0.03, Nucleated RBC % 0.3 Fish Bones: 11/22/20 16:00 11/22/20 16:00 Home Medications and Allergies Active Medications Acetaminophen (Acetaminophen 325 Mg Tablet) 650 mg PO Q6H PRN PRN Reason: Pain or Fever Carboprost Tromethamine (Carboprost Tromethamine 250 Mcg/Ml Amp) 250 mcg IM Q15M PRN PRN Reason: Step 4: Hemorrhage protocol Stop: 11/27/20 16:21 Fentanyl (Fentanyl 100 Mcg/2 Ml Vial) 50 mcg IVP Q1H PRN PRN Reason: PAIN Hydralazine HCl (Hydralazine Inj 20 Mg/Ml Vial) 10 mg IVP .ONCE PRN; Protocol PRN Reason: Step 9 of Labetalol protocol Stop: 11/27/20 16:21 Oxytocin/Sodium Chloride (Pitocin/Sodium Chloride) 500 mls @ 999 mls/hr IV PRN PRN; Protocol PRN Reason: POST- HEMORR PREVENTION Stop: 11/27/20 16:21 Tranexamic Acid (Tranexamic 1,000 Mg/100ml-Nacl) 1,000 mg in 100 mls @ 600 mls/hr IV .ONCE PRN PRN Reason: EBL >1200mL and within 3hr Stop: 11/27/20 16:21 Oxytocin/Sodium Chloride (Pitocin/Sodium Chloride) 500 mls @ 1 mls/hr IV TITR [facility]; Protocol Lactated Ringer's (Lr) 1,000 mls @ 150 mls/hr IV .Q6H40M [facility] Labetalol HCl (Labetalol 5 Mg/1 Ml 20 Ml Mdv) 20 - 80 mg IVP Q10M PRN; Protocol PRN Reason: SBP >160 or DBP >110 Lidocaine HCl (Lidocaine-Mpf 1% 30 Ml Vial) 30 ml ID .ONCE PRN PRN Reason: PERINEAL REPAIR Stop: 11/27/20 16:21 Methylergonovine Maleate (Methylergonovine 0.2 Mg/Ml Vial) 0.2 mg IM .ONCE PRN PRN Reason: Step 2: Hemorrhage protocol Stop: 11/27/20 16:21 Metoclopramide HCl (Metoclopramide 10 Mg/2 Ml Vial) 5 mg IVP Q6H PRN PRN Reason: Nausea / Vomiting Misoprostol (Misoprostol 200 Mcg Tablet) 800 mcg BC .ONCE PRN PRN Reason: Step 3: Hemorrhage protocol Stop: 11/27/20 16:21 Misoprostol (Misoprostol 100 Mcg Tablet) 50 mcg BC Q4HR [facility] Last Admin: 11/22/20 17:06 Dose: 50 mcg Documented by: Ondansetron HCl (Ondansetron 4 Mg/2 Ml Vial) 4 mg IVP Q4H PRN PRN Reason: Nausea / Vomiting Oxytocin (Oxytocin 10 Unit/Ml Vial) 10 unit IM .ONCE PRN PRN Reason: Step one: If no IV access Stop: 11/27/20 16:21 Sodium Chloride (Sodium Chloride Flush 0.9% 10 Ml Syringe) 10 ml IVP PRN PRN PRN Reason: NEEDED PER PROVIDER ORDERS Sodium Chloride (Sodium Chloride Flush 0.9% 10 Ml Syringe) 10 ml IVP 0100,0900,1700 [facility] Terbutaline Sulfate (Terbutaline 1 Mg/Ml Vial) 0.25 mg SUBQ Q1H PRN PRN Reason: tachysystole Allergies/Adverse Reactions: Allergies Allergy/AdvReac Type Severity Reaction Status Date / Time Sulfa (Sulfonamide Allergy Hives Verified 11/22/20 16:24 Antibiotics) Anes History & Medical History - Anesthetic History Anesthesia Complications: reports: No previous complications - Medical History Smoking Status: Never smoker History of Cancer?: No - Obstetrical History : 6 Parity: 3 Events: reports: labor <37 weeks, induced HTN Complications: reports: induced HTN Exam General: Alert, Oriented x3 Dental: WNL Mouth Opening: Greater than 4 Fingerbreadths Neck Mobility: Normal Mallampati classification: II Plan Anesthesia Type: Epidural Consent for Procedure(s) Verified and Reviewed: Yes Code Status: Attempt Resuscitation ASA classification: 2-Mild systemic disease Is this case an emergency?: No
[2020-11-22] MEDS: ONDANSETRON 4 MG/2 ML VIAL IVP PRN (22:20)
[2020-11-22] MEDS: fentaNYL 100 MCG/2 ML VIAL IVP PRN ×2 (22:25→23:32)
[2020-11-22] MEDS: SODIUM CHLORIDE FLUSH 0.9% 10 ML SYRINGE IVP SCH (22:30)
[2020-11-22] MEDS: SODIUM CHLORIDE FLUSH 0.9% 10 ML SYRINGE IVP PRN ×2 (22:30→23:34)
[2020-11-23] MEDS ORDERED: CALCIUM CARBONATE CHEW 500 MG TABLET PO PRN (01:24)
[2020-11-23] MEDS: fentaNYL 100 MCG/2 ML VIAL IVP PRN (01:32)
[2020-11-23] MEDS: SODIUM CHLORIDE FLUSH 0.9% 10 ML SYRINGE IVP SCH ×3 (01:32→15:33)
[2020-11-23] MEDS ORDERED: ROPIVACAINE 0.2% 200 MG/100 ML BAG EP ONE ×2 (01:59→06:44)
[2020-11-23] MEDS: LACTATED RINGERS 1,000 ML IV SCH ×3 (02:26→15:33)
[2020-11-23] MEDS: SODIUM CHLORIDE FLUSH 0.9% 10 ML SYRINGE IVP PRN (02:27)
[2020-11-23] MEDS: ONDANSETRON 4 MG/2 ML VIAL IVP PRN (02:33)
[2020-11-23] MEDS ORDERED: LIDOCAINE 1% 2 ML VIAL ONE (02:48)
[2020-11-23] MEDS ORDERED: LIDOCAINE-MPF 1% 5 ML VIAL ONE (02:51)
[2020-11-23] MEDS: miSOPROStoL 100 MCG TABLET BC SCH (03:32)
[2020-11-23] MEDS ORDERED: fentaNYL 100 MCG/2 ML VIAL ONE (04:37)
--- NOTE | 2020-11-23 06:44 | CONSULTATION NOTE ---
Consultation Report: At 4:40 patient complaining of contractile pain. Epidural intact, bolus of 100mcg Fentanyl, 2% lidocaine 5cc given with relief, then around 4:50 Ropivicaine 0.5% 10 cc bolus given. Patient now very comfortable and SBP 120's. Again at 6:25 I was called as patient can feel mild lower back pain and refuses to let the nurses do cervical exam as she states "I can feel my vagina". An additional bolus of Ropivicaine 5%, 10cc's given.
[2020-11-23] MEDS ORDERED: LIDOCAINE-MPF 1% 30 ML VIAL ONE (08:05)
[2020-11-23] MEDS ORDERED: ROPIVACAINE EP PRN ×3 (08:37→08:49)
[2020-11-23] MEDS ORDERED: FENTANYL EP PRN ×3 (08:37→08:49)
[2020-11-23] MEDS ORDERED: METOCLOPRAMIDE 10 MG/2 ML VIAL IVP PRN (08:41)
[2020-11-23] MEDS ORDERED: ePHEDrine 50 MG/ML VIAL IVP PRN (08:41)
[2020-11-23] MEDS ORDERED: NALBUPHINE 10 MG/ML AMP IVP PRN (08:41)
[2020-11-23] MEDS ORDERED: ONDANSETRON 4 MG/2 ML VIAL IVP PRN (08:41)
[2020-11-23] MEDS ORDERED: diphenhydrAMINE INJ 50 MG/ML VIAL IVP PRN (08:41)
[2020-11-23] MEDS ORDERED: NALOXONE 0.4 MG/ML VIAL IVP PRN (08:41)
[2020-11-23] MEDS ORDERED: SODIUM CHLORIDE 0.9% EP PRN ×2 (08:47→08:49)
--- NOTE | 2020-11-23 11:31 | PROVIDER PROGRESS NOTE ---
Subjective - Prog Note Date Prog Note Date: 11/23/20 Prog Note Time: 10:29 - Subjective Subjective: Late entry: Patient has had 3 doses of misoprostol. Pitocin at 1 mU/min. Eoidural in place but has had difficulty with coverage. Mild to moderate discomfort. Re-dosed several times overnight. Membranes intact. Blood pressures are normal to mild range. Declined catheterization 2/2 discomfort. Able to void 250 cc with bedpan. Objective - Vital Signs/Intake & Output Vital Signs: 133/79 87 99% Intake & Output: Intake & Output 11/20/20 11/21/20 11/22/20 11/23/20 23:59 23:59 23:59 23:59 Intake Total 1000 Balance 1000 - Objective General Appearance: positive: No acute distress Respiratory: positive: No respiratory distress Cardiovascular: positive: Other (RR) Abdomen: positive: Other (gravid, S&NT) Skin: positive: Color nml, Warm, Dry Neurologic/Psychiatric: positive: Oriented x3 - Lab Results Fish Bones: 11/22/20 16:00 11/22/20 16:00 Other Labs: Lab Results x24hrs 11/22/20 11/22/20 11/22/20 Range/Units 18:38 16:55 16:30 WBC (4.8-10.8) x10^3/uL RBC (4.20-5.40) 10^6/uL Hgb (12.0-16.0) g/dL Hct (37.0-47.0) % MCV (81.0-99.0) fL MCH (27.0-31.0) pg MCHC (32.0-36.0) g/dL RDW (12.0-15.0) % Plt Count (130-450) 10^3/uL MPV (7.9-10.8) fL Neut # (Auto) (1.5-6.6) 10^3/uL Lymph # (Auto) (1.5-3.5) 10^3/uL [place] # (Auto) (0.0-1.0) 10^3/uL Eos # (Auto) (0.0-0.7) 10^3/uL Baso # (Auto) (0.0-0.1) 10^3/uL Absolute Nucleated RBC x10^3/uL Nucleated RBC % /100WBC Sodium (135-145) mmol/L Potassium (3.5-5.0) mmol/L Chloride (101-111) mmol/L Carbon Dioxide (21-32) mmol/L Anion Gap (6-13) BUN (6-20) mg/dL Creatinine (0.4-1.0) mg/dL Estimated GFR (MDRD) (>89) Glucose (70-100) mg/dL Calcium (8.5-10.3) mg/dL Total Bilirubin (0.2-1.0) mg/dL AST (10-42) IU/L ALT (10-60) IU/L Alkaline Phosphatase (42-121) IU/L Total Protein (6.7-8.2) g/dL Albumin (3.2-5.5) g/dL Globulin (2.1-4.2) g/dL Albumin/Globulin Ratio (1.0-2.2) Urine Creatinine 192.2 mg/dL Ur Total Protein Timed 32 mg/dL Protein/Creatinin Ratio 0.2 (<=0.2) Coronavirus (PCR) NEGATIVE Blood Type Blood Type Recheck A NEGATIVE Antibody Screen Crossmatch IS Only 11/22/20 11/22/20 11/22/20 Range/Units 16:00 16:00 16:00 WBC 9.3 (4.8-10.8) x10^3/uL RBC 3.69 L (4.20-5.40) 10^6/uL Hgb 9.9 L (12.0-16.0) g/dL Hct 31.9 L (37.0-47.0) % MCV 86.4 (81.0-99.0) fL MCH 26.8 L (27.0-31.0) pg MCHC 31.0 L (32.0-36.0) g/dL RDW 14.3 (12.0-15.0) % Plt Count 215 (130-450) 10^3/uL MPV 11.6 H (7.9-10.8) fL Neut # (Auto) 6.4 (1.5-6.6) 10^3/uL Lymph # (Auto) 1.8 (1.5-3.5) 10^3/uL [place] # (Auto) 0.9 (0.0-1.0) 10^3/uL Eos # (Auto) 0.1 (0.0-0.7) 10^3/uL Baso # (Auto) 0.0 (0.0-0.1) 10^3/uL Absolute Nucleated RBC 0.03 x10^3/uL Nucleated RBC % 0.3 /100WBC Sodium 135 (135-145) mmol/L Potassium 3.5 (3.5-5.0) mmol/L Chloride 106 (101-111) mmol/L Carbon Dioxide 21 (21-32) mmol/L Anion Gap 8.0 (6-13) BUN 6 (6-20) mg/dL Creatinine 0.5 (0.4-1.0) mg/dL Estimated GFR (MDRD) 150 (>89) Glucose 65 L (70-100) mg/dL Calcium 9.3 (8.5-10.3) mg/dL Total Bilirubin 0.6 (0.2-1.0) mg/dL AST 21 (10-42) IU/L ALT 17 (10-60) IU/L Alkaline Phosphatase 140 H (42-121) IU/L Total Protein 7.0 (6.7-8.2) g/dL Albumin 3.1 L (3.2-5.5) g/dL Globulin 3.9 (2.1-4.2) g/dL Albumin/Globulin Ratio 0.8 L (1.0-2.2) Urine Creatinine mg/dL Ur Total Protein Timed mg/dL Protein/Creatinin Ratio (<=0.2) Coronavirus (PCR) Blood Type A NEGATIVE Blood Type Recheck Antibody Screen NEGATIVE Crossmatch IS Only See Detail - Other Results/Comments Other Results/Comments: SVE /-2/soft/posterior AROM with passage of clear fluid Assessment/Plan - Problem List (1) Encounter for induction of labor Impression: IOL: s/p miso x3 Pitocin at 1 mU/min AROM with passage of clear fluid FWB: vertex, Cat I tracing. GBS neg PAIN: epidural in place. Has been dosed several times. Pharmacy mixing fentanyl/bupivicaine GHTN: normal to mild range pressures -No PIH symptoms -Normal labs at admit Anticipate
[2020-11-23] MEDS ORDERED: ROPIVACAINE 0.2% PF 10 ML VIAL ONE (11:32)
--- NOTE | 2020-11-23 11:41 | PROVIDER PROGRESS NOTE ---
Subjective - Prog Note Date Prog Note Date: 11/23/20 Prog Note Time: 11:20 - Subjective Subjective: Patient feeling pushy. SVE /mid/0 Head well applied Significant cervical cnage but remains remote from delivery at present Contacting anesthesia to adjust epidural cat I tracing Objective - Vital Signs/Intake & Output Intake & Output: Intake & Output 11/20/20 11/21/20 11/22/20 11/23/20 23:59 23:59 23:59 23:59 Intake Total 1000 Balance 1000 - Lab Results Fish Bones: 11/22/20 16:00 11/22/20 16:00 Other Labs: Lab Results x24hrs 11/22/20 11/22/20 11/22/20 Range/Units 18:38 16:55 16:30 WBC (4.8-10.8) x10^3/uL RBC (4.20-5.40) 10^6/uL Hgb (12.0-16.0) g/dL Hct (37.0-47.0) % MCV (81.0-99.0) fL MCH (27.0-31.0) pg MCHC (32.0-36.0) g/dL RDW (12.0-15.0) % Plt Count (130-450) 10^3/uL MPV (7.9-10.8) fL Neut # (Auto) (1.5-6.6) 10^3/uL Lymph # (Auto) (1.5-3.5) 10^3/uL Humphreys # (Auto) (0.0-1.0) 10^3/uL Eos # (Auto) (0.0-0.7) 10^3/uL Baso # (Auto) (0.0-0.1) 10^3/uL Absolute Nucleated RBC x10^3/uL Nucleated RBC % /100WBC Sodium (135-145) mmol/L Potassium (3.5-5.0) mmol/L Chloride (101-111) mmol/L Carbon Dioxide (21-32) mmol/L Anion Gap (6-13) BUN (6-20) mg/dL Creatinine (0.4-1.0) mg/dL Estimated GFR (MDRD) (>89) Glucose (70-100) mg/dL Calcium (8.5-10.3) mg/dL Total Bilirubin (0.2-1.0) mg/dL AST (10-42) IU/L ALT (10-60) IU/L Alkaline Phosphatase (42-121) IU/L Total Protein (6.7-8.2) g/dL Albumin (3.2-5.5) g/dL Globulin (2.1-4.2) g/dL Albumin/Globulin Ratio (1.0-2.2) Urine Creatinine 192.2 mg/dL Ur Total Protein Timed 32 mg/dL Protein/Creatinin Ratio 0.2 (<=0.2) Coronavirus (PCR) NEGATIVE Blood Type Blood Type Recheck A NEGATIVE Antibody Screen Crossmatch IS Only 11/22/20 11/22/20 11/22/20 Range/Units 16:00 16:00 16:00 WBC 9.3 (4.8-10.8) x10^3/uL RBC 3.69 L (4.20-5.40) 10^6/uL Hgb 9.9 L (12.0-16.0) g/dL Hct 31.9 L (37.0-47.0) % MCV 86.4 (81.0-99.0) fL MCH 26.8 L (27.0-31.0) pg MCHC 31.0 L (32.0-36.0) g/dL RDW 14.3 (12.0-15.0) % Plt Count 215 (130-450) 10^3/uL MPV 11.6 H (7.9-10.8) fL Neut # (Auto) 6.4 (1.5-6.6) 10^3/uL Lymph # (Auto) 1.8 (1.5-3.5) 10^3/uL Humphreys # (Auto) 0.9 (0.0-1.0) 10^3/uL Eos # (Auto) 0.1 (0.0-0.7) 10^3/uL Baso # (Auto) 0.0 (0.0-0.1) 10^3/uL Absolute Nucleated RBC 0.03 x10^3/uL Nucleated RBC % 0.3 /100WBC Sodium 135 (135-145) mmol/L Potassium 3.5 (3.5-5.0) mmol/L Chloride 106 (101-111) mmol/L Carbon Dioxide 21 (21-32) mmol/L Anion Gap 8.0 (6-13) BUN 6 (6-20) mg/dL Creatinine 0.5 (0.4-1.0) mg/dL Estimated GFR (MDRD) 150 (>89) Glucose 65 L (70-100) mg/dL Calcium 9.3 (8.5-10.3) mg/dL Total Bilirubin 0.6 (0.2-1.0) mg/dL AST 21 (10-42) IU/L ALT 17 (10-60) IU/L Alkaline Phosphatase 140 H (42-121) IU/L Total Protein 7.0 (6.7-8.2) g/dL Albumin 3.1 L (3.2-5.5) g/dL Globulin 3.9 (2.1-4.2) g/dL Albumin/Globulin Ratio 0.8 L (1.0-2.2) Urine Creatinine mg/dL Ur Total Protein Timed mg/dL Protein/Creatinin Ratio (<=0.2) Coronavirus (PCR) Blood Type A NEGATIVE Blood Type Recheck Antibody Screen NEGATIVE Crossmatch IS Only See Detail
[2020-11-23] MEDS ORDERED: SIMETHICONE CHEW 80 MG TABLET PO PRN (12:21)
[2020-11-23] MEDS ORDERED: RHO(D) IMMUNE GLOBULIN 300 MCG SYRINGE IM PRN (12:21)
--- NOTE | 2020-11-23 12:33 | DELIVERY NOTE ---
Delivery Note - Labor Labor: positive: Induced by oxytocin - Infant Delivery Method Delivery Method: positive: Spontaneous vaginal delivery - Cervical Ripening Method Cervical Ripening Method: positive: Misoprostil - Presentation Presentation: positive: Vertex - Nuchal Cord Nuchal Cord: positive: None - Anesthetic Anesthetic Type: - Amniotic Fluid Description Amniotic Fluid Description: positive: Clear - Episiotomy Type Episiotomy Type: positive: None - Laceration Laceration: positive: None - Delivery Outcome Delivery Outcome: positive: Livebirth - [place]: positive: Placed in direct skin contact with mother, [place] used sex: positive: Male - Cord Cord: positive: 3 vessels - Placenta Placenta: positive: Intact, Expressed - Estimated Blood Loss Estimated Blood Loss (in cc): 25 - Post Delivery Events Post Delivery Events: positive: No post delivery events - Delivery Comments (Free Text/Narrative) Delivery Comments (Free Text/Narrative): STAGE I: Patient is a 25 yo admitted on 11/22/20 at 37+2 for induction of labor for gestational hypertension. Mild range pressures at admission with normal PIH labs and absence of symptoms. Initial SVE 1/30/high/firm/posterior. Patient was given misoprostol 50 mcg BC x3. She was then started on pitocin at 1 mU/min max dose. Epidural for pain management with suboptimal control. Had two doses of fentanyl prior to epidural placement. GBS negative; abx not indicated. Artificial rupture of membranes with passage of clear fluid, performed at 10:17 am. Patient was uncomfortable and was checked at 11;47 am and was noted to be 7 cm. At 11;49, she expressed desire to push and was noted to be complete at 11:49 on 11/23/20. Cat I tracing throughout Stage I. STAGE II: Patient pushed for less than one minute to deliver a viable male from NEY presentation, with right shoulder anterior. Shoulder delivered without difficulty after a short delay in the setting of maternal hesitancy to continue pushing. No nuchal cord. Infant was delivered to maternal chest. Cord was clamped x2 after pulsations had ceased and was then cut by FOB. Apgars were 8/9, weight pending. STAGE III: Placenta delivered via manual expression within 3 minutes of Stage II. It was examined and found to be intact. Perineum was examined and no lacerations were noted. EBL was minimal, estimated at 25 cc.
[2020-11-23] MEDS ORDERED: LACTATED RINGERS 1,000 ML IV SCH (13:00)
[2020-11-23] MEDS: IBUPROFEN 800 MG TABLET PO PRN ×2 (13:24→19:12)
[2020-11-23] MEDS: ACETAMINOPHEN 325 MG TABLET PO PRN ×2 (13:25→19:13)
[2020-11-23] MEDS ORDERED: oxyCODONE 5 MG TABLET PO SCH (21:00)
[2020-11-24] MEDS: IBUPROFEN 800 MG TABLET PO PRN ×3 (00:41→14:38)
[2020-11-24] MEDS: DOCUSATE SODIUM 100 MG CAPSULE PO PRN ×2 (00:41→10:21)
[2020-11-24] MEDS: ACETAMINOPHEN 500 MG TABLET PO PRN ×2 (00:41→10:21)
--- NOTE | 2020-11-24 12:14 | Discharge Plan ---
Discharge Plan Problem Reviewed?: Yes Disposition: Home, Self Care Condition: Good Diet: Regular Activity Restrictions: Additional Comments (Nothing in the vagina for 6 weeks: No intercourse, tampons, douching Call for: -Fever greater than 100.5 - Pain that does not improve with pain medication -Heavy bleeding in which you are soaking a pad an hour for 2 hours in a row) Shower Restrictions: No (No baths or hot tubs for 4 weeks) Additional Instructions or Follow Up instructions: Ibuprofen 600 mg by mouth every 6 hours as needed for pain Acetaminophen 500-1000 mg by mouth every 8 hours as needed for pain Docusate 100-200 mg by mouth twice a day as needed for constipation If not taking ibuprofen, take baby aspirin 81 mg by mouth daily for the 6 week period Do not take ibuprofen and aspirin together No Smoking: If you smoke, Please STOP! Call for help. Follow-up with: Yanet Nagel MD [Provider Admit Priv/Credential] -
--- NOTE | 2020-11-24 12:17 | DISCHARGE SUMMARY ---
"Discharge Summary Admit Date: 11/22/20 Discharge Date: 11/24/20 Discharging Provider: Shona Condition at Discharge: Good Discharge Disposition: 01 Home, Self Care - DIAGNOSES Admission Diagnoses: IUP at 37+1 wga Gestational hypertension Rh negative Discharge Diagnoses with Status of Each Condition: Same and delivery of term gestation - HPI History of Present Illness: Patient is a 25 yo admitted for IOL for GHTN. Patient transferred care from [facility] at approximately 28 weeks. Has a hx of pre- eclampsia and PIH. Developed mild range pressures on 08/29/20 after 20 weeks GHTN. Has had multiple episodes of mild range pressures with normal PIH labs. Presents today for IOL. Consents signed in clinic on 11/19/20. SVE in clinic on 11/19/20 was 09/07/high. No PIH symptoms at admit. Reported BLE edema after along car trip. No CTX/VB/LOF. - CONSULTS | PROCEDURES Procedures: Spontaneous vaginal delivery Epidural placement - HOSPITAL COURSE Hospital Course: STAGE I: Patient is a 25 yo admitted on 11/22/20 at 37+2 for induction of labor for gestational hypertension. Mild range pressures at admission with normal PIH labs and absence of symptoms. Initial SVE 09/07/high/firm/posterior. Patient was given misoprostol 50 mcg BC x3. She was then started on pitocin at 1 mU/min max dose. Epidural for pain management with suboptimal control. Had two doses of fentanyl prior to epidural placement. GBS negative; abx not indicated. Artificial rupture of membranes with passage of clear fluid, performed at 10:17 am. Patient was uncomfortable and was checked at 11;47 am and was noted to be 7 cm. At 11;49, she expressed desire to push and was noted to be complete at 11:49 on 11/23/20. Cat I tracing throughout Stage I. STAGE II: Patient pushed for less than one minute to deliver a viable male infant from NEY presentation, with right shoulder anterior. Shoulder delivered without difficulty after a short delay in the setting of maternal hesitancy to continue pushing. No nuchal cord. Infant was delivered to maternal chest. Cord was clamped x2 after pulsations had ceased and was then cut by FOB. Apgars were 8/9, weight pending. STAGE III: Placenta delivered via manual expression within 3 minutes of Stage II. It was examined and found to be intact. Perineum was examined and no lacerations were noted. EBL was minimal, estimated at 25 cc. course was uncomplicated. Patient received Rhogam on PPD#1 as was O positive. Meeting goals for discharge on PPD#1. Routine instructions given. Will start ASA 81 mg if no longer taken ibuprofen due to 1st degree relative 2/2 VTE. - ALLERGIES Allergies/Adverse Reactions: Allergies Allergy/AdvReac Type Severity Reaction Status Date / Time Sulfa (Sulfonamide Allergy Hives Verified 11/22/20 16:24 Antibiotics) - MEDICATIONS Home Medications: Ambulatory Orders Medication Instructions Recorded Confirmed Aspirin [Aspirin EC] 81 mg PO DAILY #90 tablet. 08/26/20 Metoclopramide [Reglan] 10 mg PO Q6H PRN #30 tablet 08/26/20 Butalb/Acetaminophen/Caffeine 1 each PO Q4HR PRN #60 capsule MDD 08/27/20 [Fioricet 50-300-40 mg Capsule] 6 - PHYSICAL EXAM AT DISCHARGE General Appearance: positive: No acute distress Neck: positive: Nml inspection Respiratory: positive: Chest non-tender, No respiratory distress, Breath sounds nml Cardiovascular: positive: Regular rate & rhythm Peripheral Pulses: positive: 2+ Abdomen: positive: Non-tender, No distention, Other (FF below umbi) Skin: positive: Color nml Extremities: positive: Non-tender, Other (mile BLE edema, 1+) Neurologic/Psychiatric: positive: Oriented x3 - LABS Result Diagrams: 11/22/20 16:00 11/22/20 16:00 - FOLLOW UP Follow Up: 1 week for with Shona - TIME SPENT Time Spent in Discharge (Minutes): 30"
--- NOTE | 2020-11-24 12:23 | PROVIDER PROGRESS NOTE ---
Subjective - Prog Note Date Prog Note Date: 11/24/20 Prog Note Time: 12:20 - Subjective Subjective: Patient is up and ambulating, tolerating po, and voiding. Pain is well managed with pain medications. BPs wnl. BF going well. Minimal lochia. Objective - Vital Signs/Intake & Output Reviewed Vital Signs: Yes Vital Signs: Vital Signs x48h Temp Pulse Resp BP Pulse Ox 11/24/20 10:30 97.9 F 86 14 128/76 99 11/24/20 05:26 98.1 F 78 16 120/71 100 Intake & Output: Intake & Output 11/21/20 11/22/20 11/23/20 11/24/20 23:59 23:59 23:59 23:59 Intake Total 2857.500 Output Total 1575 Balance 1282.500 - Objective General Appearance: positive: No acute distress Neck: positive: Nml inspection Respiratory: positive: Chest non-tender, No respiratory distress, Breath sounds nml Cardiovascular: positive: Regular rate & rhythm Abdomen: positive: Non-tender, No distention, Other (FF below umbi) Skin: positive: Color nml, Warm, Dry Extremities: positive: Non-tender, Other (Mild BLE edema, 1+, non-tender and symmetric) Neurologic/Psychiatric: positive: Oriented x3 - Lab Results Fish Bones: 11/22/20 16:00 11/22/20 16:00 Other Labs: Lab Results x24hrs 11/23/20 Range/Units 18:10 Blood Type A NEGATIVE Weak D (Du) WEAK-D NEGATIVE Maternal Bleed NEGATIVE (NEGATIVE) Assessment/Plan - Problem List (2) Vaginal delivery Impression: PPD#1: Doing well Meeting goals for discharge Rhogam given this am Declines Rx for medications Routine DC instructions given DC to home
[2020-11-24 15:53] VITALS: BP 124/71
--- NOTE | 2020-11-24 16:44 | Labor Flowsheet ---
Labor Flowsheet Datetime Report Generated by CPN: 11/24/2020 16:43 Datetime: 11/24/2020 15:27 VITAL SIGNS NBP Sys/Shanda/Mean (mmHg): 124 : 71 : 85 Pulse: 68 Datetime: 11/24/2020 10:24 SpO2 (%): 99 Datetime: 11/23/2020 15:20 Stage of : Recovery PAIN Pain Scale: 3 Pain Presence: Constant Pain Location: Back Pain Assessment Comments: Bruising from epidural placements Datetime: 11/23/2020 13:00 Respirations: 20 Pain Type: N/A Datetime: 11/23/2020 12:35 MEDICATIONS Pitocin (milliunits): Started @ 350 Medication Comments: 2nd bag of pitocin up at 350 mls/hr per MD request COMMUNICATION Communication: Report Given to @ Dr Nagel Provider Notified (Name): Dr Nagel Communication Comments: Dr Nagel notified that Steophany's first bag of Pitocin is almost empty. Fundus is firm and lochia is scant to small. Would like 2nd bag up at 350 mls/hr. Datetime: 11/23/2020 11:54 UTERINE ACTIVITY Monitor Mode: External Frequency (min): 2 Quality: Strong Duration (sec): 60-70 Pattern: Normal: <= 5 Contractions in 10 Minutes Resting Tone (Palpate): Relaxed Comments: Spotty tracing due to maternal movement; unable to establish baseline Datetime: 11/23/2020 11:53 Pain Coping: Writhing STAGE 2 Pushing: Involuntary Pushing Pushing Position: Pushing with Contractions; Pushing Lithotomy Pushing Progress: Descent with Pushing; Presenting Part Visible; with Pushing Datetime: 11/23/2020 11:49 Effacement (%): 100 Exam by: Dr. Nagel Datetime: 11/23/2020 11:46 Patient Care Comments: Nitrous oxide stopped Datetime: 11/23/2020 11:45 ASSESSMENT A Monitor Mode: Telemetry FHR Baseline Rate : 115 Variability: Moderate 6-25 bpm Accelerations: 15X15 Decelerations: Early Category: Category I Oxygen Method: Room Air LaborFlag: Labor Datetime: 11/23/2020 11:39 Epidural Procedure Other: Redose Anesthesia Comments: 8mL Naropin Datetime: 11/23/2020 11:15 I/O Interventions: Bedpan Given Datetime: 11/23/2020 10:58 Station: 0 Datetime: 11/23/2020 10:56 Antiemetics/Antacids: Zofran (mg) @ 4 Datetime: 11/23/2020 10:38 PATIENT CARE IV/Blood Work: New IV Bag Hung Datetime: 11/23/2020 10:17 VAGINAL EXAM Dilatation (cm): 6.0 Membrane Status: Ruptured Membranes Rupture Method: Artificial Amniotic Fluid Color: Clear Amniotic Fluid Amount: Moderate Amniotic Fluid Odor: Normal Cervix, Consistency: Soft Datetime: 11/23/2020 08:17 Temperature (C): 36.9 Datetime: 11/23/2020 08:03 Vaginal Exam Comments: Refusing cervical check Datetime: 11/23/2020 07:35 Vital Sign Comments: Minimal numbess in upper thighs bilaterally MATERNAL ASSESSMENT Level of Consciousness: Alert Headache: Denies Breath Sounds, Left: Clear and Equal Breath Sounds, Right: Clear and Equal Nausea/Vomiting: Denies RUQ Epigastric Pain: Denies Datetime: 11/23/2020 07:32 Comfort Measures: Breathing/Relaxation; Family Support Datetime: 11/23/2020 06:44 Cervix, Position: Anterior Datetime: 11/23/2020 05:01 Pain Goal: 3 Pain Relief Measures: Pain Medication Given Datetime: 11/23/2020 05:00 Anesthesia Level Check: T9 Datetime: 11/23/2020 04:36 Patient Position/Activity: Left Lateral Datetime: 11/23/2020 04:20 Provider Reviewed Strip: No Notification Reason: Status Update; Pain; Patient Request Datetime: 11/23/2020 03:30 Cervical Ripening Agents: Cytotec @ 50 Datetime: 11/23/2020 03:08 Contraction Comments: new monitors applied with full battery Datetime: 11/23/2020 03:03 Epidural Procedure: Test Dose Datetime: 11/23/2020 02:29 PROCEDURE TIME OUT Procedure Verify: Correct Patient Identity; Correct Side and Site are Marked; Accurate Procedure Co nsent Form; Agreement on Procedure to be Done ANESTHESIA Anesthesia Plans: Epidural Epidural Positioning: Sitting Datetime: 11/23/2020 00:51 Monitor Interventions for FHR: Ultrasound Adjusted Datetime: 11/22/2020 23:36 Analgesics/Sedatives: Fentanyl (mcg) @ 50 Datetime: 11/22/2020 23:14 Temperature Route: Oral Datetime: 11/22/2020 22:48 Vaginal Bleeding: None Datetime: 11/22/2020 22:24 Monitor Interventions for UA: [place] Adjusted Datetime: 11/22/2020 18:59 FHR Baseline Changes: No Baseline Change
== END 2020-11-24 16:20 | disposition home or self-care (01) | DRG 807 ==
LOC: WFO 15:23 → FBP 15:27 → WFO 16:18 → FBP 16:19
PROVIDERS: ADMIT Obstetrics & Gynecology; ATTEND Obstetrics & Gynecology
PROC: 3E0DXGC Introduction of Other Therapeutic Substance into Mouth and Pharynx, External Approach (ICD-10-PCS; principal; 2020-11-22)
PROC: 10907ZC Drainage of Amniotic Fluid, Therapeutic from Products of Conception, Via Natural or Artificial Opening (ICD-10-PCS; 2020-11-22)
PROC: 10E0XZZ Delivery of Products of Conception, External Approach (ICD-10-PCS; 2020-11-23)
DX: O13.4 Gestational [pregnancy-induced] hypertension without significant proteinuria, complicating childbirth (principal); Z37.0 Single live birth; Z3A.37 37 weeks gestation of pregnancy; Z20.822 Contact with and (suspected) exposure to COVID-19; O99.214 Obesity complicating childbirth; E66.9 Obesity, unspecified
CPT/HCPCS: 80053; 82570; 83033; 84156; 85025; 86850; 86900; 86901; 86920; 87635; A9270; J7120

== ENCOUNTER 2020-11-30 13:10 | Outpatient (CLI) | payer OTHER ==
--- NOTE | 2020-11-30 14:20 | Labor Flowsheet ---
Labor Flowsheet Datetime Report Generated by CPN: 11/30/2020 14:19 Datetime: 11/24/2020 15:27 VITAL SIGNS NBP Sys/Shanda/Mean (mmHg): 124 : 71 : 85 Pulse: 68 Datetime: 11/24/2020 10:24 SpO2 (%): 99 Datetime: 11/23/2020 15:20 Stage of : Recovery PAIN Pain Scale: 3 Pain Presence: Constant Pain Location: Back Pain Assessment Comments: Bruising from epidural placements Datetime: 11/23/2020 13:00 Respirations: 20 Pain Type: N/A Datetime: 11/23/2020 12:35 MEDICATIONS Pitocin (milliunits): Started @ 350 Medication Comments: 2nd bag of pitocin up at 350 mls/hr per MD request COMMUNICATION Communication: Report Given to @ Dr Nagel Provider Notified (Name): Dr Nagel Communication Comments: Dr Nagel notified that Steophany's first bag of Pitocin is almost empty. Fundus is firm and lochia is scant to small. Would like 2nd bag up at 350 mls/hr. Datetime: 11/23/2020 11:54 UTERINE ACTIVITY Monitor Mode: External Frequency (min): 2 Quality: Strong Duration (sec): 60-70 Pattern: Normal: <= 5 Contractions in 10 Minutes Resting Tone (Palpate): Relaxed Comments: Spotty tracing due to maternal movement; unable to establish baseline Datetime: 11/23/2020 11:53 Pain Coping: Writhing STAGE 2 Pushing: Involuntary Pushing Pushing Position: Pushing with Contractions; Pushing Lithotomy Pushing Progress: Descent with Pushing; Presenting Part Visible; with Pushing Datetime: 11/23/2020 11:49 Effacement (%): 100 Exam by: Dr. Nagel Datetime: 11/23/2020 11:46 Patient Care Comments: Nitrous oxide stopped Datetime: 11/23/2020 11:45 ASSESSMENT A Monitor Mode: Telemetry FHR Baseline Rate : 115 Variability: Moderate 6-25 bpm Accelerations: 15X15 Decelerations: Early Category: Category I Oxygen Method: Room Air LaborFlag: Labor Datetime: 11/23/2020 11:39 Epidural Procedure Other: Redose Anesthesia Comments: 8mL Naropin Datetime: 11/23/2020 11:15 I/O Interventions: Bedpan Given Datetime: 11/23/2020 10:58 Station: 0 Datetime: 11/23/2020 10:56 Antiemetics/Antacids: Zofran (mg) @ 4 Datetime: 11/23/2020 10:38 PATIENT CARE IV/Blood Work: New IV Bag Hung Datetime: 11/23/2020 10:17 VAGINAL EXAM Dilatation (cm): 6.0 Membrane Status: Ruptured Membranes Rupture Method: Artificial Amniotic Fluid Color: Clear Amniotic Fluid Amount: Moderate Amniotic Fluid Odor: Normal Cervix, Consistency: Soft Datetime: 11/23/2020 08:17 Temperature (C): 36.9 Datetime: 11/23/2020 08:03 Vaginal Exam Comments: Refusing cervical check Datetime: 11/23/2020 07:35 Vital Sign Comments: Minimal numbess in upper thighs bilaterally MATERNAL ASSESSMENT Level of Consciousness: Alert Headache: Denies Breath Sounds, Left: Clear and Equal Breath Sounds, Right: Clear and Equal Nausea/Vomiting: Denies RUQ Epigastric Pain: Denies Datetime: 11/23/2020 07:32 Comfort Measures: Breathing/Relaxation; Family Support Datetime: 11/23/2020 06:44 Cervix, Position: Anterior Datetime: 11/23/2020 05:01 Pain Goal: 3 Pain Relief Measures: Pain Medication Given Datetime: 11/23/2020 05:00 Anesthesia Level Check: T9 Datetime: 11/23/2020 04:36 Patient Position/Activity: Left Lateral Datetime: 11/23/2020 04:20 Provider Reviewed Strip: No Notification Reason: Status Update; Pain; Patient Request Datetime: 11/23/2020 03:30 Cervical Ripening Agents: Cytotec @ 50 Datetime: 11/23/2020 03:08 Contraction Comments: new monitors applied with full battery Datetime: 11/23/2020 03:03 Epidural Procedure: Test Dose Datetime: 11/23/2020 02:29 PROCEDURE TIME OUT Procedure Verify: Correct Patient Identity; Correct Side and Site are Marked; Accurate Procedure Co nsent Form; Agreement on Procedure to be Done ANESTHESIA Anesthesia Plans: Epidural Epidural Positioning: Sitting Datetime: 11/23/2020 00:51 Monitor Interventions for FHR: Ultrasound Adjusted Datetime: 11/22/2020 23:36 Analgesics/Sedatives: Fentanyl (mcg) @ 50 Datetime: 11/22/2020 23:14 Temperature Route: Oral Datetime: 11/22/2020 22:48 Vaginal Bleeding: None Datetime: 11/22/2020 22:24 Monitor Interventions for UA: [place] Adjusted Datetime: 11/22/2020 18:59 FHR Baseline Changes: No Baseline Change
== END 2020-11-30 14:00 | disposition home or self-care (01) ==
LOC: WFO 13:10 → FBP 13:11 → WFO 14:00
PROVIDERS: ATTEND Obstetrics & Gynecology
DX: Z39.1 Encounter for care and examination of lactating mother (principal)
CPT/HCPCS: 99403

== ENCOUNTER 2021-10-15 14:17 | Emergency (ER) | payer OTHER ==
[2021-10-15 14:29] VITALS: BP 105/78
[2021-10-15] MEDS ORDERED: cephALEXin 250 MG CAPSULE PO STA (14:43)
[2021-10-15] MEDS ORDERED: IBUPROFEN 800 MG TABLET PO STA (14:43)
--- NOTE | 2021-10-15 14:52 | ED Physician Documentation ---
History of Present Illness - Stated complaint Stated Complaint: RT BREAST PX - Chief complaint Chief Complaint: General - History obtained from History obtained from: Patient - History of Present Illness Timing: Today Pain level max: 5 Pain level now: 4 - Additonal information Additional information: 26-year-old female presents with right breast pain. She is currently breast- feeding. She states that the breast is red and swollen. She states she has had mastitis several times in the past and this feels similar. Has had fevers and body aches today. No vomiting. No diarrhea. No abdominal pain. No cough or congestion. Worse with palpation, nothing makes it better. Review of Systems Constitutional: reports: Fever Respiratory: denies: Cough GI: reports: Nausea. denies: Abdominal Pain, Vomiting, Diarrhea Musculoskeletal: denies: Neck pain, Back pain Neurologic: denies: Headache PD PAST MEDICAL HISTORY - Past Medical History Past Medical History: Yes Neuro: Migraines - Past Surgical History Past Surgical History: No - Present Medications Home Medications: Ambulatory Orders Medication Instructions Recorded Confirmed Aspirin [Aspirin EC] 81 mg PO DAILY #90 tablet. 08/26/20 Metoclopramide [Reglan] 10 mg PO Q6H PRN #30 tablet 08/26/20 Butalb/Acetaminophen/Caffeine 1 each PO Q4HR PRN #60 capsule MDD 08/27/20 [Fioricet 50-300-40 mg Capsule] 6 Ibuprofen [Motrin] 800 mg PO Q8H PRN #30 tablet 10/15/21 cephALEXin [Keflex] 500 mg PO Q6H #40 cap 10/15/21 - Allergies Allergies/Adverse Reactions: Allergies Allergy/AdvReac Type Severity Reaction Status Date / Time Sulfa (Sulfonamide Allergy Hives Verified 10/15/21 14:29 Antibiotics) - Social History Smoking Status: Never smoker PD ED PE NORMAL - Vitals Vital signs reviewed: Yes - General General: Alert and oriented X 3, No acute distress, Well developed/nourished - HEENT HEENT: PERRL, Moist mucous membranes - Neck Neck: Supple, no meningeal sign - Cardiac Cardiac: RRR, Strong equal pulses - Respiratory Respiratory: No respiratory distress, Clear bilaterally - Abdomen Abdomen: Soft, Non tender, Non distended - Derm Derm: Warm and dry - Neuro Neuro: Alert and oriented X 3 - Psych Psych: Normal mood, Normal affect - Free text exam Free text exam: Tender to palpation over the right breast with mild erythema. There is no evidence of abscess. Raquel Carey, manometer technician present Results - Vitals Vitals: Vital Signs - 24 hr 10/15/21 14:26 Temperature 39.2 C H Heart Rate 135 H Respiratory 14 Rate Blood Pressure 105/78 O2 Saturation 99 Oxygen O2 Source Room air PD MEDICAL DECISION MAKING - ED course Complexity details: considered differential (No evidence of abscess.), d/w patient ED course: Patient with mastitis. Will place on Keflex for home. Patient is well- appearing, nontoxic. Patient counseled regarding signs and symptoms for which I believe and urgent re-evaluation would be necessary. Patient with good understanding of and agreement to plan and is comfortable going home at this time This document was made in part using voice recognition software. While efforts are made to proofread this document, sound alike and grammatical errors may occu r. Departure - Departure Disposition: 01 Home, Self Care Clinical Impression: Mastitis Condition: Good Instructions: ED Breast Infec Follow-Up: MARC PACKER DO [Primary Care Provider] - Within 1 week Prescriptions: cephALEXin [Keflex] 500 mg PO Q6H #40 cap Ibuprofen [Motrin] 800 mg PO Q8H PRN #30 tablet PRN Reason: PAIN &/OR FEVER Comments: Please follow-up with your doctor for further care. Return if you worsen. Your prescriptions were sent to [facility] in [place]. Take all antibiotics until gone. Continue to breast-feed. Forms: Activity restrictions Discharge Date/Time: 10/15/21 15:06
[2021-10-15] MEDS ORDERED: ONDANSETRON ODT 4 MG TABLET TL STA (14:55)
== END 2021-10-15 15:06 | disposition home or self-care (01) ==
LOC: ED 14:17
DX: N61.0 Mastitis without abscess (principal)
CPT/HCPCS: 99282; A9270; Q0162

== ENCOUNTER 2021-10-28 17:38 | Emergency (ER) | payer OTHER ==
[2021-10-28 17:53] VITALS: BP 113/62
[2021-10-28] MEDS ORDERED: cephALEXin 250 MG CAPSULE PO STA (18:06)
--- NOTE | 2021-10-28 18:07 | ED Physician Documentation ---
History of Present Illness - Stated complaint Stated Complaint: LT BREAST PX - Chief complaint Chief Complaint: General - History obtained from History obtained from: Patient - History of Present Illness Timing: Yesterday Pain level max: 8 Pain level now: 8 - Additonal information Additional information: Patient is a 26-year-old female who presents to the emergency department left breast pain. She is currently breast-feeding. Recently had mastitis on the right side, now feels that she has mastitis on the left. Nothing makes it better. Worse with palpation. Review of Systems Constitutional: reports: Fever Throat: denies: Sore throat Respiratory: denies: Cough GI: denies: Vomiting, Diarrhea Skin: denies: Rash PD PAST MEDICAL HISTORY - Past Medical History Past Medical History: Yes Neuro: Migraines - Past Surgical History Past Surgical History: No - Present Medications Home Medications: Ambulatory Orders Medication Instructions Recorded Confirmed cephALEXin [Keflex] 500 mg PO Q6H #40 cap 10/28/21 - Allergies Allergies/Adverse Reactions: Allergies Allergy/AdvReac Type Severity Reaction Status Date / Time Sulfa (Sulfonamide Allergy Hives Verified 10/28/21 17:49 Antibiotics) - Social History Smoking Status: Never smoker PD ED PE NORMAL - Vitals Vital signs reviewed: Yes - General General: Alert and oriented X 3, No acute distress - HEENT HEENT: Moist mucous membranes - Neck Neck: Supple, no meningeal sign - Cardiac Cardiac: RRR - Respiratory Respiratory: No respiratory distress, Clear bilaterally - Derm Derm: Warm and dry - Neuro Neuro: Alert and oriented X 3 - Free text exam Free text exam: Right breast appears normal. Left breast appears red and swollen. No abscess. 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 We will place her back on antibiotics and have her follow-up with her doctor for further care. No evidence of abscess. Patient will continue to breast-feed. Patient counseled regarding signs and symptoms for which I believe and urgent re-evaluation would be necessary. Patient with good understanding of and agreement to plan and is comfortable going home at this time This document was made in part using voice recognition software. While efforts are made to proofread this document, sound alike and grammatical errors may occur. Departure - Departure Disposition: 01 Home, Self Care Clinical Impression: Mastitis Condition: Good Instructions: ED Breast Infec Follow-Up: MARC PACKER DO [Primary Care Provider] - Within 1 week Prescriptions: cephALEXin [Keflex] 500 mg PO Q6H #40 cap Comments: Your antibiotics were sent to [facility] in [place]. Please take all antibiotics until gone. Follow-up with your doctor for further care. Return if you worsen.
== END 2021-10-28 18:17 | disposition home or self-care (01) ==
LOC: ED 17:38
DX: N61.0 Mastitis without abscess (principal)
CPT/HCPCS: 99282; A9270

== ENCOUNTER 2021-12-29 17:15 | Emergency (ER) | payer OTHER ==
[2021-12-29 17:32] VITALS: BP 131/83
--- NOTE | 2021-12-29 17:43 | ED Physician Documentation ---
PD HPI LOWER EXT INJURY - Stated complaint Stated Complaint: L KNEE SWELLING - Chief complaint Chief Complaint: Ext Problem - History obtained from History obtained from: Patient - History of Present Illness PD HPI LOW EXT INJURY LOCATION: Left - Additional information Additional information: She is a history of ACL repair x2 on the left knee in the remote past. Without specific injury other than chasing her kids around as per her routine she developed left knee swelling this morning. Review of Systems Constitutional: denies: Fever, Chills Cardiac: reports: Reviewed and negative Respiratory: reports: Reviewed and negative PD PAST MEDICAL HISTORY - Past Medical History Neuro: Migraines - Past Surgical History Past Surgical History: No - Present Medications Home Medications: Ambulatory Orders Medication Instructions Recorded Confirmed cephALEXin [Keflex] 500 mg PO Q6H #40 cap 10/28/21 - Allergies Allergies/Adverse Reactions: Allergies Allergy/AdvReac Type Severity Reaction Status Date / Time Sulfa (Sulfonamide Allergy Hives Verified 12/29/21 17:32 Antibiotics) - Social History Smoking Status: Never smoker PD ED PE NORMAL - Vitals Vital signs reviewed: Yes - General General: Alert and oriented X 3, No acute distress, Well developed/nourished - HEENT HEENT: PERRL, EOMI - Extremities Extremities: Other (Mild effusion of the left knee without tenderness. No warmth or redness. Full range of motion but with some pain at extremes due to the effusion.) - Neuro Neuro: Alert and oriented X 3, Normal speech Results - Vitals Vitals: Vital Signs - 24 hr 12/29/21 17:27 Temperature 36.4 C L Heart Rate 66 Respiratory 14 Rate Blood Pressure 131/83 H O2 Saturation 98 Oxygen O2 Source Room air PD MEDICAL DECISION MAKING - ED course ED course: 26-year-old woman with history of ACL repair presents with an atraumatic effusion of the left knee without tenderness. Nothing in the history or physical to suggest infection. I offered arthrocentesis which she declined preferring conservative management. Departure - Departure Disposition: 01 Home, Self Care Clinical Impression: Effusion, left knee Condition: Good Record reviewed to determine appropriate education?: Yes Instructions: ED Effusion Knee Comments: Return if you worsen and decide you would like to have the effusion drained. [place] ibuprofen as needed for pain and swelling. Wear the splint when up and around but you do not have to wear it in bed or showering etc.
== END 2021-12-29 17:50 | disposition home or self-care (01) ==
LOC: ED 17:15
DX: M25.462 Effusion, left knee (principal)
CPT/HCPCS: 99281; 99282

== ENCOUNTER 2022-06-04 08:00 | Outpatient (CLI) | payer OTHER ==
[2022-06-04 18:12] LABS: BILIRUBIN,URINE NEGATIVE (NEGATIVE); GLUCOSE, URINE (UA) NEGATIVE (NEGATIVE); KETONES,URINE (UA) NEGATIVE (NEGATIVE); LEUKOCYTE ESTERASE, URINE NEGATIVE (NEGATIVE); NITRITE,URINE NEGATIVE (NEGATIVE); OCCULT BLOOD,URINE TRACE-INTA (NEGATIVE); PROTEIN,URINE NEGATIVE (NEGATIVE); UROBILINOGEN,URINE 0.2 (NORMAL) E.U./dL (NORMAL)
[2022-06-04 18:13] LABS: CLARITY,URINE CLEAR (CLEAR)
[2022-06-04 18:45] LABS: BACTERIA,URINE Rare /HPF (None Seen); RBC,URINE 0-5 /HPF (0-5); SQUAMOUS EPITHELIAL CELL,UR RARE Squamous (<= Few); WBC,URINE 0-3 /HPF (0-5)
== END 2022-06-04 23:59 | disposition home or self-care (01) ==
LOC: LAB.N 08:00
PROVIDERS: ATTEND Emergency Medicine
DX: R30.0 Dysuria (principal)
CPT/HCPCS: 81001; 87086

== ENCOUNTER 2022-06-11 15:52 | Emergency (ER) | payer OTHER ==
[2022-06-11 16:36] LABS: BASOPHILS % (AUTO) 0.3 %; EOSINOPHILS # (AUTO) 0.2 10^3/uL (0.0-0.7); EOSINOPHILS % (AUTO) 1.5 %; HCT - HEMATOCRIT 39.3 % (37.0-47.0); HGB - HEMOGLOBIN 12.5 g/dL (12.0-16.0); LYMPHOCYTES # (AUTO) 2.4 10^3/uL (1.5-3.5); LYMPHOCYTES % (AUTO) 23.7 %; MEAN CORPUSCULAR HEMOGLOBIN 30.5 pg (27.0-31.0); MEAN CORPUSCULAR HGB CONC 31.8 g/dL (32.0-36.0); MEAN CORPUSCULAR VOLUME 95.9 fL (81.0-99.0); MEAN PLATELET VOLUME 10.1 fL (7.9-10.8); MONOCYTES # (AUTO) 0.8 10^3/uL (0.0-1.0); MONOCYTES % (AUTO) 8.2 %; NEUTROPHILS # (AUTO) 6.6 10^3/uL (1.5-6.6); NEUTROPHILS % (AUTO) 66.1 %; PLT - PLATELET COUNT 282 10^3/uL (130-450); RED CELL DISTRIBUTION WIDTH 12.5 % (12.0-15.0); WHITE BLOOD COUNT 9.9 x10^3/uL (4.8-10.8)
[2022-06-11 16:47] LABS: ALBUMIN 4.3 g/dL (3.2-5.5); ALBUMIN/GLOBULIN RATIO 1.2 (1.0-2.2); BILIRUBIN,TOTAL 0.5 mg/dL (0.2-1.0); CALCIUM 9.3 mg/dL (8.5-10.3); CREATININE 0.7 mg/dL (0.4-1.0); POTASSIUM 3.8 mmol/L (3.5-5.0)
[2022-06-11 17:28] LABS: BILIRUBIN,URINE NEGATIVE (NEGATIVE); GLUCOSE, URINE (UA) NEGATIVE (NEGATIVE); KETONES,URINE (UA) NEGATIVE (NEGATIVE); LEUKOCYTE ESTERASE, URINE NEGATIVE (NEGATIVE); NITRITE,URINE NEGATIVE (NEGATIVE); OCCULT BLOOD,URINE TRACE-INTA (NEGATIVE); PH,URINE 6.5 PH (5.0-7.5); PROTEIN,URINE NEGATIVE (NEGATIVE); UROBILINOGEN,URINE 0.2 (NORMAL) E.U./dL (NORMAL)
--- NOTE | 2022-06-11 17:29 | ED Physician Documentation ---
History of Present Illness - Stated complaint Stated Complaint: CRAMPS - Chief complaint Chief Complaint: Abd Pain - Additonal information Additional information: 27-year-old female presents emergency department for evaluation of about 1 week of lower pelvic cramping. She has some mild dysuria and urgency. She went to a local walk-in clinic last week and was told she did not have a UTI. She is scheduled to see the OB clinic tomorrow. But over the last 24 hours she has begun to have some pain predominantly in the right lower quadrant. No fevers or vomiting. G7, . LMP 04/21/2022 Previous pregnancies complicated by preeclampsia. She is taking a vitamin. She was induced at 37 weeks with each Review of Systems Constitutional: denies: Fever, Chills Eyes: reports: Reviewed and negative Throat: reports: Reviewed and negative Cardiac: reports: Reviewed and negative Respiratory: reports: Reviewed and negative GI: reports: Abdominal Pain : denies: Dysuria Skin: reports: Reviewed and negative Musculoskeletal: reports: Reviewed and negative PD PAST MEDICAL HISTORY - Past Medical History Neuro: Migraines Psych: Anxiety - Past Surgical History Past Surgical History: No Ortho: ACL reconstruction - Present Medications Home Medications: Ambulatory Orders Medication Instructions Recorded Confirmed HYDROcod/ACETAM 5/325 [[place] 5/325] 1 - 2 tab PO Q6H PRN #20 tablet 12/30/21 12/30/21 LORazepam [Ativan] 0.5 tab PO DAILY PRN 12/30/21 12/30/21 Oxycodone HCl/Acetaminophen 1 - 2 each PO Q6H PRN #14 tablet 12/30/21 [Percocet 5-325 mg Tablet] Venlafaxine HCl [Effexor Xr] 225 mg PO DAILY 12/30/21 12/30/21 - Allergies Allergies/Adverse Reactions: Allergies Allergy/AdvReac Type Severity Reaction Status Date / Time Sulfa (Sulfonamide Allergy Hives Verified 06/11/22 16:00 Antibiotics) - Social History Does the pt smoke?: Yes Smoking Status: Current every day smoker Does the pt drink ETOH?: No Does the pt have substance abuse?: No - Immunizations Immunizations are current?: Yes - POLST Patient has POLST: No PD ED PE NORMAL - General General: Alert and oriented X 3, No acute distress - HEENT HEENT: Atraumatic, Moist mucous membranes - Neck Neck: Supple, no meningeal sign, No adenopathy - Cardiac Cardiac: RRR, No murmur - Respiratory Respiratory: No respiratory distress, Clear bilaterally - Abdomen Abdomen: Normal bowel sounds. 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 Eye Opening: Spontaneous Motor: Obeys Commands Verbal: Oriented GCS Score: 15 Results - Vitals Vitals: Vital Signs - 24 hr 06/11/22 15:58 Temperature 36.5 C Heart Rate 78 Respiratory 16 Rate Blood Pressure 139/73 H O2 Saturation 100 Oxygen O2 Source Room air - Labs Labs: Laboratory Tests 06/11/22 06/11/22 06/11/22 16:03 16:23 16:23 WBC 9.9 RBC 4.10 L Hgb 12.5 Hct 39.3 MCV 95.9 MCH 30.5 MCHC 31.8 L RDW 12.5 Plt Count 282 MPV 10.1 Neut # (Auto) 6.6 Lymph # (Auto) 2.4 [place] # (Auto) 0.8 Eos # (Auto) 0.2 Baso # (Auto) 0.0 Absolute Nucleated RBC 0.00 Nucleated RBC % 0.0 Sodium 136 Potassium 3.8 Chloride 101 Carbon Dioxide 28 Anion Gap 7.0 BUN 12 Creatinine 0.7 Estimated GFR (MDRD) 100 Glucose 98 Calcium 9.3 Total Bilirubin 0.5 AST 23 ALT 25 Alkaline Phosphatase 58 Total Protein 8.0 Albumin 4.3 Globulin 3.7 Albumin/Globulin Ratio 1.2 Lipase 39 HCG, Quant Urine Color YELLOW Urine Clarity CLEAR Urine pH 6.5 Ur Specific [place] 1.020 Urine Protein NEGATIVE Urine Glucose (UA) NEGATIVE Urine Ketones NEGATIVE Urine Occult Blood TRACE-INTA Urine Nitrite NEGATIVE Urine Bilirubin NEGATIVE Urine Urobilinogen 0.2 (NORMAL) Ur Leukocyte Esterase NEGATIVE Ur Microscopic Review NOT INDICATED Urine Culture Comments NOT INDICATED 06/11/22 16:23 WBC RBC Hgb Hct MCV MCH MCHC RDW Plt Count MPV Neut # (Auto) Lymph # (Auto) [place] # (Auto) Eos # (Auto) Baso # (Auto) Absolute Nucleated RBC Nucleated RBC % Sodium Potassium Chloride Carbon Dioxide Anion Gap BUN Creatinine Estimated GFR (MDRD) Glucose Calcium Total Bilirubin AST ALT Alkaline Phosphatase Total Protein Albumin Globulin Albumin/Globulin Ratio Lipase HCG, Quant 02107.00 Urine Color Urine Clarity Urine pH Ur Specific [place] Urine Protein Urine Glucose (UA) Urine Ketones Urine Occult Blood Urine Nitrite Urine Bilirubin Urine Urobilinogen Ur Leukocyte Esterase Ur Microscopic Review Urine Culture Comments - Rads (name of study) OBUS Radiology: Final report received (IUP with good heart rate. Measuring at just over 7 weeks 1 day. Right corpus luteal cyst. Small subchorionic hemorrhage 1 x 1.2 cm maximum dimension) PD MEDICAL DECISION MAKING - ED course Complexity details: reviewed results, re-evaluated patient, considered differential, d/w patient ED course: 27 -year-old female presents emergency department for evaluation of 1 week right lower pelvic cramping as well as some dysuria and frequency. She is incidentally 7 weeks . LMP 04/21/2022. This is A2. Here in the emergency department a CBC and electrolytes were without acute findings. Her urine is entirely unremarkable and shows no signs of infection. We did obtain a pelvic ultrasound as the patient had reported cramping as well as focal right lower quadrant abdominal pain. Reassuringly we do have findings of an IUP. There is a small associated subchorionic hemorrhage. Given the lack of fevers vomiting or leukocytosis I have lower suspicion for an occult appendectomy. The reason for her lower pelvic pain however is not clear at this time. She is scheduled to establish with OB tomorrow. We discussed emergent return precautions as well. Departure - Departure Disposition: 01 Home, Self Care Clinical Impression: Pelvic pain affecting Qualifiers: Trimester: first trimester Qualified Code(s): O26.891 - Other specified related conditions, first trimester; R10.2 - Pelvic and perineal pain Subchorionic hemorrhage in first trimester Qualifiers: Fetus number: single or unspecified fetus Qualified Code(s): O41.8X10 - Other specified disorders of amniotic fluid and membranes, first trimester, not applicable or unspecified; O46.8X1 - Other antepartum hemorrhage, first trimester Condition: Stable Record reviewed to determine appropriate education?: Yes Comments: You are seen today in the emergency department because for about a week you have been having some urgency and pain when you urinate. However your urine is entirely normal and shows no signs of infection. You did have a CBC and electrolytes completed today in the emergency department which were entirely normal as well. The ultrasound shows that you have an approximately 7-week 1 day live intrauterine . There was good heart rate. We did find an associated small subchorionic bleed. These small hemorrhages can put you at risk For miscarriage however most women that do have a subchorionic hemorrhage will go on to have a normal . Continue to establish and follow-up with OB tomorrow. Reasons to return to the emergency department would be the development if any sudden severe heavy vaginal bleeding such as saturating a menstrual pad or tampon every hour for 4 or more hours.
[2022-06-11 17:30] LABS: CLARITY,URINE CLEAR (CLEAR)
[2022-06-11 19:17] VITALS: BP 138/73
--- NOTE | 2022-06-11 19:20 | Ultrasound Report ---
PROCEDURE: OB First Trimester w/TV INDICATIONS: cramping; RLQ abd pain OUTSIDE/PRIOR DATING DATA: Last menstrual period (LMP): 04/21/2022. LMP-based estimated date of delivery (ELVI): 01/26/2023. First dating scan (date and location): 06/11/2022. Estimated date of delivery (ELVI) from first dating scan: 01/28/2023. TECHNIQUE: Real-time scanning was performed of the fetus and maternal pelvic organs, with image documentation. Endovaginal scanning was also performed to better visualize the fetus and maternal ovaries. COMPARISON: None FINDINGS: Intrauterine gestation with heart rate 150 bpm. [place]-rump length is 0.9 cm, corresponding to an ultr asound age of 7 weeks. This is concordant with LMP. Right corpus luteum. Small subchorionic bleed measuring 1 x 0.5 x 1.2 cm. IMPRESSION: Intrauterine living at 7 weeks by ultrasound age. Small perigestational bleed. Reviewed by: Kannan Lebron MD on 06/11/2022 7:18 PM PDT Approved by: Kannan Lebron MD on 06/11/2022 7:18 PM PDT Station ID: [id number]
== END 2022-06-11 19:16 | disposition home or self-care (01) ==
LOC: ED 15:52
DX: O26.891 Other specified pregnancy related conditions, first trimester (principal); R10.2 Pelvic and perineal pain; R10.31 Right lower quadrant pain; O41.8X10 Other specified disorders of amniotic fluid and membranes, first trimester, not applicable or unspecified; O34.81 Maternal care for other abnormalities of pelvic organs, first trimester; N83.11 Corpus luteum cyst of right ovary; O99.331 Smoking (tobacco) complicating pregnancy, first trimester; F17.200 Nicotine dependence, unspecified, uncomplicated; Z3A.01 Less than 8 weeks gestation of pregnancy
CPT/HCPCS: 36415; 80053; 81001; 81003; 83690; 84702; 85025; 87086; 99282; 99284

== ENCOUNTER 2022-06-12 08:00 | Outpatient (CLI) | payer OTHER ==
[2022-06-12 16:06] LABS: BILIRUBIN,URINE NEGATIVE (NEGATIVE); GLUCOSE, URINE (UA) NEGATIVE (NEGATIVE); KETONES,URINE (UA) NEGATIVE (NEGATIVE); LEUKOCYTE ESTERASE, URINE SMALL (NEGATIVE); NITRITE,URINE NEGATIVE (NEGATIVE); OCCULT BLOOD,URINE SMALL (NEGATIVE); PROTEIN,URINE NEGATIVE (NEGATIVE); UROBILINOGEN,URINE 0.2 (NORMAL) E.U./dL (NORMAL)
[2022-06-12 16:10] LABS: CLARITY,URINE CLEAR (CLEAR)
[2022-06-12 16:16] LABS: AMORPHOUS SEDIMENT,UR Marked /LPF; BACTERIA,URINE Few /HPF (None Seen); RBC,URINE 0-5 /HPF (0-5); SQUAMOUS EPITHELIAL CELL,UR FEW Squamous (<= Few)
== END 2022-06-12 23:59 | disposition home or self-care (01) ==
LOC: LAB 08:00
PROVIDERS: ATTEND Nurse Practitioner
DX: Z34.90 Encounter for supervision of normal pregnancy, unspecified, unspecified trimester (principal)
CPT/HCPCS: 81001; 87086

== ENCOUNTER 2022-06-18 14:10 | Outpatient (CLI) | payer OTHER ==
[2022-06-18 14:36] LABS: BASOPHILS % (AUTO) 0.3 %; EOSINOPHILS # (AUTO) 0.1 10^3/uL (0.0-0.7); EOSINOPHILS % (AUTO) 1.1 %; HCT - HEMATOCRIT 39.6 % (37.0-47.0); HGB - HEMOGLOBIN 12.9 g/dL (12.0-16.0); LYMPHOCYTES # (AUTO) 1.9 10^3/uL (1.5-3.5); LYMPHOCYTES % (AUTO) 21.4 %; MEAN CORPUSCULAR HEMOGLOBIN 30.6 pg (27.0-31.0); MEAN CORPUSCULAR HGB CONC 32.6 g/dL (32.0-36.0); MEAN CORPUSCULAR VOLUME 94.1 fL (81.0-99.0); MEAN PLATELET VOLUME 10.1 fL (7.9-10.8); MONOCYTES # (AUTO) 0.6 10^3/uL (0.0-1.0); MONOCYTES % (AUTO) 6.4 %; NEUTROPHILS # (AUTO) 6.4 10^3/uL (1.5-6.6); NEUTROPHILS % (AUTO) 70.6 %; PLT - PLATELET COUNT 287 10^3/uL (130-450); RED BLOOD COUNT 4.21 10^6/uL (4.20-5.40); RED CELL DISTRIBUTION WIDTH 12.5 % (12.0-15.0); WHITE BLOOD COUNT 9.1 x10^3/uL (4.8-10.8)
[2022-06-18 14:44] LABS: BILIRUBIN,URINE NEGATIVE (NEGATIVE); GLUCOSE, URINE (UA) NEGATIVE (NEGATIVE); KETONES,URINE (UA) NEGATIVE (NEGATIVE); LEUKOCYTE ESTERASE, URINE NEGATIVE (NEGATIVE); NITRITE,URINE NEGATIVE (NEGATIVE); OCCULT BLOOD,URINE TRACE-INTA (NEGATIVE); PH,URINE 7.5 PH (5.0-7.5); PROTEIN,URINE NEGATIVE (NEGATIVE); UROBILINOGEN,URINE 0.2 (NORMAL) E.U./dL (NORMAL)
[2022-06-18 14:53] LABS: ALBUMIN 4.3 g/dL (3.2-5.5); ALBUMIN/GLOBULIN RATIO 1.1 (1.0-2.2); BILIRUBIN,TOTAL 0.4 mg/dL (0.2-1.0); CALCIUM 9.1 mg/dL (8.5-10.3); CREATININE 0.6 mg/dL (0.4-1.0); POTASSIUM 3.8 mmol/L (3.5-5.0); TOTAL PROTEIN 8.1 g/dL (6.7-8.2)
[2022-06-18 14:55] LABS: BACTERIA,URINE Few /HPF (None Seen); CLARITY,URINE CLEAR (CLEAR); RBC,URINE 0-5 /HPF (0-5); SQUAMOUS EPITHELIAL CELL,UR FEW Squamous (<= Few); WBC,URINE 0-3 /HPF (0-5)
[2022-06-18 14:59] LABS: CREATININE,URINE 221.5 mg/dL; PROTEIN/CREATININE RATIO,URINE 0.1 (<=0.2)
[2022-06-19 04:09] LABS: HBsAG SCREEN Negative (Negative); RPR Non Reactive (Non Reactive)
[2022-06-19 05:11] LABS: HCV AB <0.1 s/co ratio (0.0-0.9)
[2022-06-19 09:09] LABS: VARICELLA-ZOSTER AB IGG 203 index (Immune >165)
[2022-06-20 01:07] LABS: HIV SCREEN 4TH GENERATION Non Reactive (Non Reactive)
== END 2022-06-18 14:11 | disposition home or self-care (01) ==
LOC: LAB 14:10
PROVIDERS: ATTEND Nurse Practitioner
DX: O16.9 Unspecified maternal hypertension, unspecified trimester (principal)
CPT/HCPCS: 36415; 80053; 81001; 82570; 84156; 85025; 86592; 86762; 86787; 86803; 86850; 86900; 86901; 87086; 87340; 87389

== ENCOUNTER 2022-07-10 11:30 | Outpatient (CLI) | payer OTHER ==
[2022-07-10 22:54] LABS: BACTERIAL VAGINOSIS DNA POSITIVE (NEGATIVE); CANDIDA GLABRATA DNA NEGATIVE (NEGATIVE); CANDIDA GROUP DNA NEGATIVE (NEGATIVE); CANDIDA KRUSEI DNA NEGATIVE (NEGATIVE); TRICHOMONAS VAGINALIS DNA NEGATIVE (NEGATIVE)
[2022-07-10 23:57] LABS: CHLAMYDIA TRACHOMATIS DNA NEGATIVE (NEGATIVE); NEISSERIA GONORRHOEAE DNA NEGATIVE (NEGATIVE)
== END 2022-07-10 23:59 | disposition home or self-care (01) ==
LOC: DI 11:30
PROVIDERS: ATTEND Nurse Practitioner
DX: Z11.3 Encounter for screening for infections with a predominantly sexual mode of transmission (principal); Z12.4 Encounter for screening for malignant neoplasm of cervix
CPT/HCPCS: 81514; 87491; 87591; 87661

== ENCOUNTER 2022-08-24 21:55 | Emergency (ER) | payer OTHER ==
[2022-08-24 22:21] LABS: BILIRUBIN,URINE NEGATIVE (NEGATIVE); GLUCOSE, URINE (UA) NEGATIVE (NEGATIVE); KETONES,URINE (UA) NEGATIVE (NEGATIVE); LEUKOCYTE ESTERASE, URINE NEGATIVE (NEGATIVE); NITRITE,URINE NEGATIVE (NEGATIVE); OCCULT BLOOD,URINE NEGATIVE (NEGATIVE); PH,URINE 5.5 PH (5.0-7.5); PROTEIN,URINE NEGATIVE (NEGATIVE); UROBILINOGEN,URINE 0.2 (NORMAL) E.U./dL (NORMAL)
[2022-08-24 22:22] LABS: CLARITY,URINE CLEAR (CLEAR); HCG UR QUAL POSITIVE
--- NOTE | 2022-08-25 00:47 | ED Physician Documentation ---
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 She c/o suprapubic cramping and pain across lower back, waxing and waning but constant in since 5 PM. No inciting event, no exacerbating nor ameliorating factors. Denies h/o similar symptoms She is approximately 18 weeks . Denies vaginal bleeding. Review of Systems Constitutional: denies: Fever GI: reports: Abdominal Pain (suprapubic pain). denies: Nausea, Vomiting, Diarrhea : reports: Now EGA (18 weeks). denies: Dysuria, Frequency, Hematuria Musculoskeletal: reports: Back pain PD PAST MEDICAL HISTORY - Past Medical History Neuro: Migraines Psych: Anxiety - Past Surgical History Past Surgical History: No Ortho: ACL reconstruction - Present Medications Home Medications: Ambulatory Orders Medication Instructions Recorded Confirmed HYDROcod/ACETAM 5/325 [[place] 5/325] 1 - 2 tab PO Q6H PRN #20 tablet 12/30/21 12/30/21 LORazepam [Ativan] 0.5 tab PO DAILY PRN 12/30/21 12/30/21 Oxycodone HCl/Acetaminophen 1 - 2 each PO Q6H PRN #14 tablet 12/30/21 [Percocet 5-325 mg Tablet] Venlafaxine HCl [Effexor Xr] 225 mg PO DAILY 12/30/21 12/30/21 - Allergies Allergies/Adverse Reactions: Allergies Allergy/AdvReac Type Severity Reaction Status Date / Time Sulfa (Sulfonamide Allergy Hives Verified 08/24/22 22:06 Antibiotics) - Social History Does the pt smoke?: Yes Smoking Status: Current every day smoker Does the pt drink ETOH?: No Does the pt have substance abuse?: No - Immunizations Immunizations are current?: Yes - POLST Patient has POLST: No PD ED PE NORMAL - Vitals Vital signs reviewed: Yes - General General: Alert and oriented X 3, Well developed/nourished, Other (asleep but awakens easily to voice; appears uncomfortable at times during H+P) - HEENT HEENT: Moist mucous membranes - Neck Neck: Supple, no meningeal sign - Cardiac Cardiac: RRR, No murmur - Respiratory Respiratory: No respiratory distress, Clear bilaterally - Abdomen Abdomen: Normal bowel sounds, Soft, Non tender, Non distended, Other (gravid proportionate to EDC) - Back Back: No CVA TTP - Derm Derm: Normal color, Warm and dry - Extremities Extremities: No edema Results - Vitals Vitals: Oxygen O2 Source Room air - Labs Labs: Laboratory Tests 08/24/22 08/25/22 08/25/22 22:14 01:18 01:18 WBC 9.0 RBC 3.95 L Hgb 12.0 Hct 37.5 MCV 94.9 MCH 30.4 MCHC 32.0 RDW 12.9 Plt Count 228 MPV 10.4 Neut # (Auto) 5.9 Lymph # (Auto) 2.3 [place] # (Auto) 0.6 Eos # (Auto) 0.1 Baso # (Auto) 0.0 Absolute Nucleated RBC 0.00 Nucleated RBC % 0.0 Sodium 135 Potassium 4.1 Chloride 102 Carbon Dioxide 24 Anion Gap 9.0 BUN 8 Creatinine 0.5 Estimated GFR (MDRD) 148 Glucose 100 Calcium 8.9 Total Bilirubin 0.3 AST 22 ALT 23 Alkaline Phosphatase 53 Total Protein 7.3 Albumin 3.2 Globulin 4.1 Albumin/Globulin Ratio 0.8 L Lipase 40 Urine Color LT. YELLOW Urine Clarity CLEAR Urine pH 5.5 Ur Specific [place] <=1.005 Urine Protein NEGATIVE Urine Glucose (UA) NEGATIVE Urine Ketones NEGATIVE Urine Occult Blood NEGATIVE Urine Nitrite NEGATIVE Urine Bilirubin NEGATIVE Urine Urobilinogen 0.2 (NORMAL) Ur Leukocyte Esterase NEGATIVE Ur Microscopic Review NOT INDICATED Urine Culture Comments NOT INDICATED Urine HCG, Qual POSITIVE - Rads (name of study) OB US Radiology: Prelim report reviewed, Final report received, See rad report PD Medical Decision Making - ED course Complexity details: reviewed results, re-evaluated patient, considered differential, d/w patient ED course: Tests ordered and results reviewed by me: CBC, ER abdominal panel, UA. There are no abnormalities of clinical significance nor concern. OB US shows 17w5d IUP with FHR 130s and closed cervicx; no concerning findings on this US. Early in stay she is given PO tylenol and on reevaluation she is in NAD and reports resolution of her discomfort. Results reviewed with patient; cause of her symptoms is not apparent at this time. Court Abstractor did note caio- arreaga contracts during the [place], which could potentially be contributing to, or even causing, her symptoms. Patient expresses concern that her symptoms have some similarity to a previous UTI during . I reassured her that, at this time, the urinalysis has no abnormality which would strongly suggest no UTI is present at this time. Return precautions discussed, and I advised her to contact her mason foreman/superintendant this week to arrange follow-up for reevaluation Departure - Departure Disposition: 01 Home, Self Care Clinical Impression: Abdominal pain during Qualifiers: Trimester: second trimester Qualified Code(s): O26.892 - Other specified related conditions, second trimester Condition: Good Instructions: ED Pelvic Pain Preg UKO 2 or 3 Tri Follow-Up: Fox Padilla MD [Provider Admit Priv/Credential] - Comments: The results of tonight's tests are without diagnostic nor concerning findings. Your blood tests and urinalysis have no abnormalities. The ultrasound shows a healthy at 17 weeks and 4 days by ultrasound measurements. The cause of your symptoms is not apparent at this time. Follow-up with your [facility], next available appointment. Please return to the emergency department if your symptoms worsen, or if you develop new/concerning signs/symptoms (such as fever, worsening pain, vaginal bleeding). Discharge Date/Time: 08/25/22 02:43
[2022-08-25] MEDS ORDERED: SODIUM CHLORIDE 0.9% 1,000 ML IV STA (01:09)
[2022-08-25] MEDS ORDERED: ACETAMINOPHEN 325 MG TABLET PO STA (01:09)
--- NOTE | 2022-08-25 01:27 | Ultrasound Report ---
PROCEDURE: OB Limited INDICATIONS: cramping pelvic/back pain, 18 weeks OUTSIDE/PRIOR DATING DATA: Last menstrual period (LMP): 04/21/2022. LMP-based estimated date of delivery (ELVI): 01/26/2023. First dating scan (date and location): 06/11/2022. Estimated date of delivery (ELVI) from first dating scan: 01/28/2023. The below data below was generated using the ultrasound ELVI of 01/28/2023 TECHNIQUE: Real-time scanning was performed of the fetus, with image documentation. COMPARISON: 06/11/2022. FINDINGS: A single living intrauterine gestation is present. Presentation: Variable Placenta: Placental position is posterior, without definite evidence of previa. No periplacental flui d collections. Amniotic fluid index: 16.9 cm, within normal limits for gestational age. Largest pocket: 5.0 cm. heart rate: 138 beats per minutes. Maternal cervical canal: 5.3 cm long; normal length is 2.5 cm or more. The cervix is closed without endocervical fluid or funneling. Estimated gestational age from initial scan: 17 weeks 4 days. IMPRESSION: 1. Single living intrauterine redemonstrated. 2. SUSAN within normal limits. 3. Cervix appears closed and normal in length. Reviewed by: Rickie Vogel MD on 08/25/2022 1:25 AM PST Approved by: Rickie Vogel MD on 08/25/2022 1:25 AM PST Station ID: [id number]
[2022-08-25 01:29] LABS: BASOPHILS % (AUTO) 0.2 %; EOSINOPHILS # (AUTO) 0.1 10^3/uL (0.0-0.7); EOSINOPHILS % (AUTO) 1.1 %; HCT - HEMATOCRIT 37.5 % (37.0-47.0); LYMPHOCYTES # (AUTO) 2.3 10^3/uL (1.5-3.5); LYMPHOCYTES % (AUTO) 26.1 %; MEAN CORPUSCULAR HEMOGLOBIN 30.4 pg (27.0-31.0); MEAN CORPUSCULAR VOLUME 94.9 fL (81.0-99.0); MEAN PLATELET VOLUME 10.4 fL (7.9-10.8); MONOCYTES # (AUTO) 0.6 10^3/uL (0.0-1.0); MONOCYTES % (AUTO) 6.9 %; NEUTROPHILS # (AUTO) 5.9 10^3/uL (1.5-6.6); NEUTROPHILS % (AUTO) 65.4 %; PLT - PLATELET COUNT 228 10^3/uL (130-450); RED BLOOD COUNT 3.95 10^6/uL (4.20-5.40); RED CELL DISTRIBUTION WIDTH 12.9 % (12.0-15.0)
[2022-08-25 01:47] LABS: ALBUMIN 3.2 g/dL (3.2-5.5); ALBUMIN/GLOBULIN RATIO 0.8 (1.0-2.2); BILIRUBIN,TOTAL 0.3 mg/dL (0.2-1.0); CALCIUM 8.9 mg/dL (8.5-10.3); CREATININE 0.5 mg/dL (0.4-1.0); POTASSIUM 4.1 mmol/L (3.5-5.0); TOTAL PROTEIN 7.3 g/dL (6.7-8.2)
[2022-08-25 02:16] VITALS: BP 113/73
== END 2022-08-25 02:43 | disposition home or self-care (01) ==
LOC: ED 21:55
DX: O26.892 Other specified pregnancy related conditions, second trimester (principal); R10.2 Pelvic and perineal pain; O99.332 Smoking (tobacco) complicating pregnancy, second trimester; F17.200 Nicotine dependence, unspecified, uncomplicated; Z3A.18 18 weeks gestation of pregnancy
CPT/HCPCS: 36415; 76815; 80053; 81003; 81025; 83690; 85025; 99283; 99284; A9270; 81001; 87086

== ENCOUNTER 2022-09-16 14:30 | Outpatient (CLI) | payer OTHER ==
--- NOTE | 2022-09-16 17:01 | Ultrasound Report ---
PROCEDURE: OB Detailed Eval INDICATIONS: SUPERVISON OF OUTSIDE/PRIOR DATING DATA: Last menstrual period (LMP): 04/21/2022.. LMP-based estimated date of delivery (ELVI): 01/26/2023. First dating scan (date and location): 06/11/2022. Estimated date of delivery (ELVI) from first dating scan: 01/28/2023. The below data below was generated using the working ELVI of 01/28/2023 TECHNIQUE: Real-time scanning was performed of the fetus, with image documentation and biometric measurements. Endovaginal scanning: Not indicated COMPARISON: 06/11/2022, 08/24/2022. FINDINGS: General: A single living intrauterine gestation is present. Presentation: Cephalic Placenta: Placental position is posterior, without previa. Amniotic fluid index: 15.9 cm, normal for gestational age. heart rate: 137 beats per minute. Maternal cervical canal: 4.1 cm long; normal length is 2.5 cm or more. biometrics: Biparietal diameter: 5.3 cm, 22 weeks, 0 day. Head circumference: 19.1 cm, 21 weeks, 3 days. Abdominal circumference: 15.9 cm, 21 weeks, 0 day. Femur length: 3.3 cm, 20 weeks, 2 days. Estimated gestational age from initial scan: 20 weeks, 6 days Composite gestational age from present scan: 21 weeks, 1 day Estimated weight and percentile: 379 g, 42% Measurement variability in biometric dating: +/- 10 days from 12-20 weeks gestation, +/- 2 weeks from 20-30 weeks gestation, +/- 3 weeks at 30 weeks gestation or later. Anatomic survey: Neuro: Ventricles are normal at less than 10 mm. Cisterna magna is normal at 3-11 mm. Cerebellum i s normal in size and morphology. Nuchal skin fold: Normal at less than 6 mm between 14 and 20 weeks gestational age. Face: Nose and lips, facial profile are normal. Spine: No evidence for spina bifida. Heart: 4-chambered heart is present, with normal ventricular outflow tracts. Diaphragm: Diaphragm is intact. Stomach: Left-sided stomach is present. Kidneys: No hydronephrosis. Normal is less than 5 mm in 2nd trimester, less than 7 mm in 3rd trimester. Cord: 3 vessel cord has orthotopic insertion. Bladder: Normal in size. Extremities: All 4 extremities are visualized. IMPRESSION: 1. Single live intrauterine gestation with fetus in vertex presentation. heart rate is 137 bpm. Normal amount of amniotic fluid. SUSAN equals 15.9 cm. Normal growth. Estimated weight is at 42%. 2. Normal anatomic survey. Reviewed by: Irvin Kilpatrick MD on 09/16/2022 5:00 PM [facility] Approved by: Irvin Kilpatrick MD on 09/16/2022 5:00 PM [facility] Station ID: [id number]
== END 2022-09-16 14:31 | disposition home or self-care (01) ==
LOC: DI 14:30
PROVIDERS: ATTEND Obstetrics & Gynecology
DX: O09.92 Supervision of high risk pregnancy, unspecified, second trimester (principal); Z3A.21 21 weeks gestation of pregnancy

== ENCOUNTER 2022-09-17 15:02 | Outpatient (CLI) | payer OTHER ==
[2022-09-17] MEDS ORDERED: METOCLOPRAMIDE 10 MG/2 ML VIAL IVP ONE (16:00)
[2022-09-17] MEDS ORDERED: diphenhydrAMINE INJ 50 MG/ML VIAL IVP ONE (17:00)
[2022-09-17] MEDS ORDERED: LACTATED RINGERS 1,000 ML IV SCH (17:00)
[2022-09-17 18:11] LABS: BASOPHILS % (AUTO) 0.3 %; EOSINOPHILS # (AUTO) 0.2 10^3/uL (0.0-0.7); EOSINOPHILS % (AUTO) 1.3 %; HCT - HEMATOCRIT 34.6 % (37.0-47.0); HGB - HEMOGLOBIN 11.3 g/dL (12.0-16.0); LYMPHOCYTES # (AUTO) 2.6 10^3/uL (1.5-3.5); LYMPHOCYTES % (AUTO) 21.8 %; MEAN CORPUSCULAR HGB CONC 32.7 g/dL (32.0-36.0); MEAN CORPUSCULAR VOLUME 94.8 fL (81.0-99.0); MEAN PLATELET VOLUME 10.4 fL (7.9-10.8); MONOCYTES # (AUTO) 0.9 10^3/uL (0.0-1.0); MONOCYTES % (AUTO) 7.9 %; NEUTROPHILS % (AUTO) 68.1 %; PLT - PLATELET COUNT 225 10^3/uL (130-450); RED BLOOD COUNT 3.65 10^6/uL (4.20-5.40); RED CELL DISTRIBUTION WIDTH 12.7 % (12.0-15.0); WHITE BLOOD COUNT 11.8 x10^3/uL (4.8-10.8)
[2022-09-17 18:17] LABS: CREATININE,URINE 40.2 mg/dL
[2022-09-17 18:20] LABS: ALBUMIN/GLOBULIN RATIO 0.8 (1.0-2.2); BILIRUBIN,TOTAL 0.4 mg/dL (0.2-1.0); CALCIUM 8.8 mg/dL (8.5-10.3); CREATININE 0.5 mg/dL (0.4-1.0); POTASSIUM 3.7 mmol/L (3.5-5.0)
--- NOTE | 2022-09-17 18:20 | PROVIDER PROGRESS NOTE ---
- HPI Chief Complaint: Headache Current : Vital Signs Temperature 99.0 F 09/17/22 15:18 Heart Rate 83 09/17/22 15:18 Respiratory Rate 18 09/17/22 15:18 Blood Pressure 133/80 H 09/17/22 15:18 Temperature 99.0 F 09/17/22 15:18 Heart Rate 83 09/17/22 15:18 Respiratory Rate 18 09/17/22 15:18 Blood Pressure 133/80 H 09/17/22 15:18 O2 Saturation If not protocol: Oxygen Flow, liters/minute - Procedures NST Procedure: NST Procedure Start Time 13:15 Stop Time 14:00 - Plan Plan: 27yo at 21.2w presenting with headache. She was seen for similar concerns at [place] 09/15 and was discharged home. Denies visual changes. Denies SOB, CP, n/v, abdominal pain. complicated by chronic hypertension. History of preeclampsia. She takes nifedipine daily. Labs and PCR collected. Three attempts made to place IV but unsuccessful. Plan was for reglan and benadryl IV, but will give PO. She is comfortable with plan and ok to go home. BP stable in triage. VSS GEN: NAD CV: Regular rate Resp: Breathing unlabored Abd: soft, nt Ext: nt FHR 135s 27yo at 21.2w with headache in , second trimester - Reassurance given does not appear to be or preeclampsia related. Normal evaluation in [place] and labs reviewed. Repeat labs here normal. - Benadryl 5mg and Reglan 10mg given PO. Advised to rest tonight. Unable to place IV despite 3 tries. - Discharge to home, follow up in office.
[2022-09-17 18:21] LABS: TOTAL PROTEIN,URINE TIMED < 6 mg/dL
[2022-09-17] MEDS ORDERED: diphenhydrAMINE 25 MG CAPSULE PO ONE (18:30)
[2022-09-17] MEDS ORDERED: METOCLOPRAMIDE 10 MG TABLET PO ONE (18:30)
[2022-09-17 19:18] VITALS: BP 134/85
== END 2022-09-17 19:00 | disposition home or self-care (01) ==
LOC: ED 15:02 → WFO 15:02 → EDSTATUS 15:06 → FBP 15:09 → WFO 19:00
PROVIDERS: ATTEND Obstetrics & Gynecology
DX: O99.891 Other specified diseases and conditions complicating pregnancy (principal); R51.9 Headache, unspecified; O16.2 Unspecified maternal hypertension, second trimester; Z3A.21 21 weeks gestation of pregnancy
CPT/HCPCS: 36415; 80053; 82570; 84156; 85025; 99213; A9270; 99214

== ENCOUNTER 2022-09-18 11:55 | Outpatient (CLI) | payer OTHER | END 2022-09-18 11:56 | disposition home or self-care (01) | LOC: LAB 11:55 | PROVIDERS: ATTEND Obstetrics & Gynecology | DX: Z36.8A Encounter for antenatal screening for other genetic defects (principal) | CPT/HCPCS: 36415; 81511 ==

== ENCOUNTER 2022-10-13 08:00 | Outpatient (CLI) | payer OTHER ==
[2022-10-13 16:02] LABS: BILIRUBIN,URINE NEGATIVE (NEGATIVE); GLUCOSE, URINE (UA) NEGATIVE (NEGATIVE); KETONES,URINE (UA) NEGATIVE (NEGATIVE); LEUKOCYTE ESTERASE, URINE NEGATIVE (NEGATIVE); NITRITE,URINE NEGATIVE (NEGATIVE); OCCULT BLOOD,URINE NEGATIVE (NEGATIVE); PH,URINE 6.5 PH (5.0-7.5); PROTEIN,URINE NEGATIVE (NEGATIVE); UROBILINOGEN,URINE 0.2 (NORMAL) E.U./dL (NORMAL)
[2022-10-13 16:17] LABS: CLARITY,URINE CLEAR (CLEAR); RBC,URINE None Seen /HPF (0-5); WBC,URINE 0-3 /HPF (0-5)
[2022-10-13 16:18] LABS: BACTERIA,URINE Rare /HPF (None Seen); CRYSTALS,URINE 6-10 Calcium Oxalate /LPF; MUCUS,URINE Few Strands; SQUAMOUS EPITHELIAL CELL,UR FEW Squamous (<= Few)
[2022-10-13 21:03] LABS: BACTERIAL VAGINOSIS DNA NEGATIVE (NEGATIVE); CANDIDA GROUP DNA NEGATIVE (NEGATIVE); CANDIDA KRUSEI DNA NEGATIVE (NEGATIVE); TRICHOMONAS VAGINALIS DNA NEGATIVE (NEGATIVE)
[2022-10-13 21:04] LABS: CANDIDA GLABRATA DNA NEGATIVE (NEGATIVE)
== END 2022-10-13 23:59 | disposition home or self-care (01) ==
LOC: LAB.R 08:00
PROVIDERS: ATTEND Obstetrics & Gynecology
DX: R10.9 Unspecified abdominal pain (principal)
CPT/HCPCS: 81001; 81514; 87086

== ENCOUNTER 2022-10-26 17:33 | Outpatient (CLI) | payer OTHER ==
[2022-10-26 18:09] VITALS: BP 125/83
[2022-10-26 18:30] LABS: BILIRUBIN,URINE NEGATIVE (NEGATIVE); GLUCOSE, URINE (UA) NEGATIVE (NEGATIVE); KETONES,URINE (UA) NEGATIVE (NEGATIVE); LEUKOCYTE ESTERASE, URINE NEGATIVE (NEGATIVE); NITRITE,URINE NEGATIVE (NEGATIVE); OCCULT BLOOD,URINE NEGATIVE (NEGATIVE); PH,URINE 6.5 PH (5.0-7.5); PROTEIN,URINE NEGATIVE (NEGATIVE); UROBILINOGEN,URINE 0.2 (NORMAL) E.U./dL (NORMAL)
--- NOTE | 2022-10-26 18:31 | PROVIDER PROGRESS NOTE ---
- HPI Chief Complaint: Labor Current : Vital Signs Temperature 98.2 F 10/26/22 17:50 Heart Rate 88 10/26/22 17:50 Respiratory Rate 16 10/26/22 17:50 Blood Pressure 125/83 H 10/26/22 17:50 Temperature 98.2 F 10/26/22 17:50 Heart Rate 88 10/26/22 17:50 Respiratory Rate 16 10/26/22 17:50 Blood Pressure 125/83 H 10/26/22 17:50 O2 Saturation If not protocol: Oxygen Flow, liters/minute - Procedures Diagnosis/Indication for NST: labor NST Procedure: NST Procedure Start Time 13:15 Stop Time 14:00 EFM: 140s, moderate variability, no decelerations [place]: no contractions monitoring reassuring (early for NST) Performed and read 10/26/22 Service Date of procedure: 10/26/22 - Plan Plan: 27yo at 26.6w presenting with pelvic pressure and occasional contractions. Denies leaking fluid or vaginal bleeding. Good movement. care at [facility], complicated by history of preeclampsia. VSS GEN: NAD CV: Regular rate Resp: Breathing unlabored Abd: soft, nt Ext: nt CL: 3.8, 4cm, cervix appears closed 27yo at 26.6w, false labor - status reassuring - Reassurance given. Feels comfortable going home. Recommended rest and maternity support belt. - Follow up as scheduled 1w
[2022-10-26 18:34] LABS: CLARITY,URINE CLEAR (CLEAR)
== END 2022-10-26 18:45 | disposition home or self-care (01) ==
LOC: WFO 17:33 → FBP 17:36 → WFO 18:45
PROVIDERS: ATTEND Obstetrics & Gynecology
DX: O47.02 False labor before 37 completed weeks of gestation, second trimester (principal); Z3A.26 26 weeks gestation of pregnancy
CPT/HCPCS: 81001; 81003; 87086; 99213; 99214

== ENCOUNTER 2022-11-03 09:28 | Outpatient (CLI) | payer OTHER ==
[2022-11-03 09:47] VITALS: BP 106/71
[2022-11-03 09:56] LABS: BILIRUBIN,URINE NEGATIVE (NEGATIVE); GLUCOSE, URINE (UA) NEGATIVE (NEGATIVE); KETONES,URINE (UA) NEGATIVE (NEGATIVE); LEUKOCYTE ESTERASE, URINE NEGATIVE (NEGATIVE); NITRITE,URINE NEGATIVE (NEGATIVE); OCCULT BLOOD,URINE TRACE-INTA (NEGATIVE); PH,URINE 6.5 PH (5.0-7.5); PROTEIN,URINE NEGATIVE (NEGATIVE); UROBILINOGEN,URINE 0.2 (NORMAL) E.U./dL (NORMAL)
[2022-11-03 10:04] LABS: BACTERIA,URINE Few /HPF (None Seen); CLARITY,URINE CLEAR (CLEAR); SQUAMOUS EPITHELIAL CELL,UR FEW Squamous (<= Few); WBC,URINE 0-3 /HPF (0-5)
[2022-11-03 10:22] LABS: BASOPHILS % (AUTO) 0.2 %; EOSINOPHILS % (AUTO) 0.2 %; HCT - HEMATOCRIT 31.3 % (37.0-47.0); HGB - HEMOGLOBIN 9.9 g/dL (12.0-16.0); LYMPHOCYTES # (AUTO) 0.6 10^3/uL (1.5-3.5); MEAN CORPUSCULAR HEMOGLOBIN 29.9 pg (27.0-31.0); MEAN CORPUSCULAR HGB CONC 31.6 g/dL (32.0-36.0); MEAN CORPUSCULAR VOLUME 94.6 fL (81.0-99.0); MEAN PLATELET VOLUME 10.2 fL (7.9-10.8); MONOCYTES # (AUTO) 0.8 10^3/uL (0.0-1.0); MONOCYTES % (AUTO) 8.1 %; NEUTROPHILS # (AUTO) 8.6 10^3/uL (1.5-6.6); NEUTROPHILS % (AUTO) 84.8 %; PLT - PLATELET COUNT 204 10^3/uL (130-450); RED BLOOD COUNT 3.31 10^6/uL (4.20-5.40); RED CELL DISTRIBUTION WIDTH 12.6 % (12.0-15.0); WHITE BLOOD COUNT 10.2 x10^3/uL (4.8-10.8)
[2022-11-03 10:22] LABS: CREATININE,URINE 228.8 mg/dL; PROTEIN/CREATININE RATIO,URINE 0.1 (<=0.2)
[2022-11-03] MEDS ORDERED: ONDANSETRON 4 MG/2 ML VIAL IVP PRN (10:31)
[2022-11-03] MEDS ORDERED: LACTATED RINGERS 1,000 ML IV ONE (10:31)
[2022-11-03] MEDS ORDERED: ACETAMINOPHEN 500 MG TABLET PO PRN (10:44)
[2022-11-03] MEDS ORDERED: FERRIC GLUCONATE 125 MG in SODIUM CHLORIDE 0.9% 100ML 100 ML IV ONE (11:00)
[2022-11-03 11:47] LABS: ALBUMIN 2.8 g/dL (3.2-5.5); ALBUMIN/GLOBULIN RATIO 0.7 (1.0-2.2); BILIRUBIN,TOTAL 0.2 mg/dL (0.2-1.0); CALCIUM 7.5 mg/dL (8.5-10.3); CREATININE 0.6 mg/dL (0.4-1.0); POTASSIUM 3.3 mmol/L (3.5-5.0); TOTAL PROTEIN 6.6 g/dL (6.7-8.2)
--- NOTE | 2022-11-03 12:14 | PROCEDURE REPORT ---
- HPI Diagnosis/Indication for NST: labor Current EDU 01/26/23 Gestation 28 Weeks and 0 Days 7 Para 4 Vital Signs Temperature 99.1 F 11/03/22 08:57 Heart Rate 125 H 11/03/22 08:57 Respiratory Rate 18 11/03/22 08:57 Blood Pressure 106/71 11/03/22 08:57 Temperature 99.1 F 11/03/22 08:57 Heart Rate 125 H 11/03/22 08:57 Respiratory Rate 18 11/03/22 08:57 Blood Pressure 106/71 11/03/22 08:57 O2 Saturation If not protocol: Oxygen Flow, liters/minute - NST Procedure NST Procedure 27-year-old 7 para 4 at 28 weeks of gestation Start Date 11/03/22 Start Time 09:40 Stop Time 10:15 Vibroacoustic Stimulation Used No Patient States Movement Yes Baseline: 140 Moderate variability No deceleration Present acceleration 15 x 15 - Results and Plan Findings/Impression: Reactive nonstress test Plan: IV hydration and medication for her headache nausea and reassurance She will keep her regular appointment at the clinic
--- NOTE | 2022-11-03 12:18 | PROVIDER PROGRESS NOTE ---
- HPI Chief Complaint: Labor Current : Current EDU 01/26/23 Gestation 28 Weeks and 0 Days 7 Para 4 Vital Signs Temperature 99.1 F 11/03/22 08:57 Heart Rate 125 H 11/03/22 08:57 Respiratory Rate 18 11/03/22 08:57 Blood Pressure 106/71 11/03/22 08:57 Temperature 99.1 F 11/03/22 08:57 Heart Rate 125 H 11/03/22 08:57 Respiratory Rate 18 11/03/22 08:57 Blood Pressure 106/71 11/03/22 08:57 O2 Saturation If not protocol: Oxygen Flow, liters/minute She presented with a chief complaint of frequent [place] contractions and dizzy spells. She has been taking Procardia for her chronic hypertension and aspirin for the past history of preeclampsia. She was a seen at the clinic yesterday and her cervical exam showed 0/0/-3. We are going to check her urine and CBC with differentials and CMP. She will be observed for the clinical symptoms and reevaluate after IV hydration and medications. - Procedures OB Procedure Performed: NST Diagnosis/Indication for NST: labor NST Procedure: NST Procedure Start Date 11/03/22 Start Time 09:40 Stop Time 10:15 Vibroacoustic Stimulation Used No Patient States Movement Yes Reactive nonstress test Service Date of procedure: 11/03/22 Findings: Reactive nonstress test - Plan Plan: She will be discharged with reassurance and she will keep her regular appointment at the clinic
== END 2022-11-03 13:30 | disposition home or self-care (01) ==
LOC: WFO 09:28 → FBP 09:29 → WFO 13:30
PROVIDERS: ATTEND Obstetrics & Gynecology
DX: O47.03 False labor before 37 completed weeks of gestation, third trimester (principal); O99.891 Other specified diseases and conditions complicating pregnancy; R42 Dizziness and giddiness; Z3A.28 28 weeks gestation of pregnancy; R51.9 Headache, unspecified; R11.0 Nausea; O16.3 Unspecified maternal hypertension, third trimester; Z87.59 Personal history of other complications of pregnancy, childbirth and the puerperium
CPT/HCPCS: 36415; 59025; 80053; 81001; 82570; 83540; 84156; 84466; 85025; 96365; 96366; 96375; 99214; A9270; J2916; J7120; 87086

== ENCOUNTER 2022-11-09 08:27 | Outpatient (CLI) | payer OTHER ==
[2022-11-09 09:35] LABS: HCT - HEMATOCRIT 36.1 % (37.0-47.0); HGB - HEMOGLOBIN 11.3 g/dL (12.0-16.0); MEAN CORPUSCULAR HGB CONC 31.3 g/dL (32.0-36.0); MEAN CORPUSCULAR VOLUME 95.8 fL (81.0-99.0); MEAN PLATELET VOLUME 9.9 fL (7.9-10.8); RED BLOOD COUNT 3.77 10^6/uL (4.20-5.40); WHITE BLOOD COUNT 11.3 x10^3/uL (4.8-10.8)
== END 2022-11-09 08:28 | disposition home or self-care (01) ==
LOC: LAB 08:27
PROVIDERS: ATTEND Obstetrics & Gynecology
DX: O09.892 Supervision of other high risk pregnancies, second trimester (principal); Z67.91 Unspecified blood type, Rh negative
CPT/HCPCS: 36415; 82950; 85027; 86850

== ENCOUNTER 2022-11-15 11:27 | Emergency (ER) | payer OTHER ==
[2022-11-15 12:01] LABS: BASOPHILS % (AUTO) 0.3 %; EOSINOPHILS # (AUTO) 0.1 10^3/uL (0.0-0.7); EOSINOPHILS % (AUTO) 0.7 %; HCT - HEMATOCRIT 35.4 % (37.0-47.0); LYMPHOCYTES # (AUTO) 1.7 10^3/uL (1.5-3.5); LYMPHOCYTES % (AUTO) 15.8 %; MEAN CORPUSCULAR HEMOGLOBIN 29.4 pg (27.0-31.0); MEAN CORPUSCULAR HGB CONC 31.1 g/dL (32.0-36.0); MEAN CORPUSCULAR VOLUME 94.7 fL (81.0-99.0); MEAN PLATELET VOLUME 10.6 fL (7.9-10.8); MONOCYTES # (AUTO) 0.7 10^3/uL (0.0-1.0); MONOCYTES % (AUTO) 6.6 %; NEUTROPHILS # (AUTO) 8.1 10^3/uL (1.5-6.6); NEUTROPHILS % (AUTO) 74.6 %; PLT - PLATELET COUNT 182 10^3/uL (130-450); RED BLOOD COUNT 3.74 10^6/uL (4.20-5.40); RED CELL DISTRIBUTION WIDTH 13.1 % (12.0-15.0); WHITE BLOOD COUNT 10.9 x10^3/uL (4.8-10.8)
[2022-11-15] MEDS ORDERED: SODIUM CHLORIDE 0.9% 1,000 ML IV STA (12:06)
--- NOTE | 2022-11-15 12:07 | ED Physician Documentation ---
History of Present Illness - Stated complaint Stated Complaint: FEELING FAINT - Chief complaint Chief Complaint: General - Additonal information Additional information: 27-year-old female presents to the emergency department at 29 weeks and 5 days . She reports that for the last 24 hours she has been feeling faint. Feels as though she is going to pass out. Sometimes she feels like she is losing her vision. She also feels a sensation of the room spinning. She had reported decreased movement when she presented to the emergency department. Previous pregnancies have been complicated by preeclampsia. She is taking Procardia for her hypertension in this as well as a daily aspirin. She denies any loss of fluids. No chest pain. Occasionally feels short of air. In the exam room she is alert and very well-appearing. No hypoxia no obvious distress. No focal deficits. Review of Systems Constitutional: denies: Fever Cardiac: reports: Chest pain / pressure Respiratory: reports: Reviewed and negative GI: reports: Reviewed and negative : reports: Other (Currently third trimester. 29 weeks 5 days.) Musculoskeletal: reports: Reviewed and negative Neurologic: reports: Near syncope Psychiatric: reports: Reviewed and negative PD PAST MEDICAL HISTORY - Past Medical History Neuro: Migraines Psych: Anxiety - Past Surgical History Past Surgical History: No Ortho: ACL reconstruction - Present Medications Home Medications: Ambulatory Orders Medication Instructions Recorded Confirmed Butalb/Acetam/Caff 50/325/40 1 each PO Q4-6H PRN 11/15/22 11/15/22 [Fioricet] Metoclopramide [Reglan] 10 mg PO TID 11/15/22 11/15/22 NIFEdipine [Procardia Xl] 30 mg PO DAILY 11/15/22 11/15/22 Pnv 119/Iron Fum/Folic Acid 1 each PO DAILY 11/15/22 11/15/22 [ 19 Tablet] - Allergies Allergies/Adverse Reactions: Allergies Allergy/AdvReac Type Severity Reaction Status Date / Time Sulfa (Sulfonamide Allergy Hives Verified 11/15/22 11:39 Antibiotics) - Social History Does the pt smoke?: Yes Smoking Status: Current every day smoker Does the pt drink ETOH?: No Does the pt have substance abuse?: No - Immunizations Immunizations are current?: Yes - POLST Patient has POLST: No PD ED PE EXPANDED - General General: Alert, Well developed/nourished - HEENT HEENT: PERRL, EOMI - Cardiac Cardiac: Regular Rate, Radial strong equal, Pedal strong equal, Cap refill < 2 sec. No: Murmur Present - Respiratory Respiratory: Clear to ausultation radha. No: Distress, Labored - Abdomen Abdomen: Other (Gravid uterus well above the umbilicus. NST in progress) - Derm Derm: Normal color, Warm and dry. No: Rash - Extremities Extremities: Normal, Pedal Pulses Present. No: Pedal edema bilateral, Right calf TTP/cord, Left calf TTP/cord - Neuro Neuro: Alert and Oriented X 3, CNII-XII intact, Normal gait, Normal finger nose, Normal speech - GCS Eye Opening: Spontaneous Motor: Obeys Commands Verbal: Oriented Total: 15 Results - Vitals Vitals: Vital Signs - 24 hr 11/15/22 11/15/22 11/15/22 11:33 11:51 12:34 Temperature 36.9 C Heart Rate 104 H 92 Heart Rate [ 88 Sitting] Heart Rate [ 106 H Standing] Heart Rate [ 83 Supine] Respiratory 16 32 H Rate Blood Pressure 125/78 126/88 H Blood Pressure 129/89 H [Sitting] Blood Pressure 119/74 [Standing] Blood Pressure 108/70 [Supine] O2 Saturation 99 100 Oxygen O2 Source Room air - EKG (time done) 1136 EKG releavant findings:: EKG personally interpreted by author of this note. Relevant findings are: Rate: Rate (enter#) (94) Rhythm: NSR [place]: Normal Intervals: Normal [place] QRS: Normal Ischemia: Normal ST segments Compare to prior EKG: Old EKG unavailable Computer interpretation: Agree with computer - Labs Labs: Laboratory Tests 11/15/22 11/15/22 11:55 11:55 WBC 10.9 H RBC 3.74 L Hgb 11.0 L Hct 35.4 L MCV 94.7 MCH 29.4 MCHC 31.1 L RDW 13.1 Plt Count 182 MPV 10.6 Neut # (Auto) 8.1 H Lymph # (Auto) 1.7 [place] # (Auto) 0.7 Eos # (Auto) 0.1 Baso # (Auto) 0.0 Absolute Nucleated RBC 0.00 Nucleated RBC % 0.0 Sodium 133 L Potassium 3.8 Chloride 102 Carbon Dioxide 23 Anion Gap 8.0 BUN 7 Creatinine 0.5 Estimated GFR (MDRD) 148 Glucose 103 H Calcium 8.4 L Total Bilirubin 0.4 AST 21 ALT 19 Alkaline Phosphatase 60 Total Protein 7.0 Albumin 3.0 L Globulin 4.0 Albumin/Globulin Ratio 0.8 L Lipase 40 PD Medical Decision Making - ED course Complexity details: reviewed results, re-evaluated patient, considered differential, d/w patient, 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 . 2 of her previous pregnancies have been complicated by preeclampsia. She is currently on Procardia and aspirin for her chronic hypertension and history of preeclampsia. Here in the emergency department she was normotensive without findings of hypertension. Heart rate normal for . Her neurological exam was unremarkable. She had no headache or double vision. An NST was completed at the bedside and was normal for 30 weeks . While here in the emergency department the patient began to have normal movement. We did obtain a CBC and electrolytes. There is a mild anemia but unchanged from recent and expected in . Her electrolytes were without acute findings. Normal LFTs and liver function test. Clinically the patient does not present as having preeclampsia. Patient's EKG was normal sinus rhythm without any changes that are even typically associated in . It was nonischemic. Patient has had no recent cough cold or congestion. I have low suspicion based on history and exam for pulmonary embolism or dural venous sinus thrombosis We did obtain orthostatics and though she remained normotensive without a change in blood pressures. Her heart rates did increase from the 80s to about 106 with standing. The patient was administered a liter of IV fluids here in the emergency department and on reevaluation is feeling markedly better. I briefly discussed this case with the on-call OB Dr. Hansen. He feels that the patient can be discharged home with reassurance. Despite a normal NST, the patient should be reevaluated in clinic this week given that she had reported decreased movement this morning. Patient reports she has an OB appointment tomorrow in the a.m. I discussed the clinical findings and plan with the patient and her partner at the bedside. She feels comfortable with discharge home. The usual emergent return precautions were discussed. Departure - Departure Disposition: 01 Home, Self Care Clinical Impression: Dizzy, Third trimester , History of pre-eclampsia Condition: Stable Record reviewed to determine appropriate education?: Yes Comments: You came to the emergency department today because you have been feeling lightheaded, dizzy and feeling as though you are going to faint. You would also reported that you had decreased movement this morning. The NST completed at the bedside today was normal for 30 weeks of . Your labs including your CBC and electrolytes were all essentially normal. Your blood pressure is within a healthy range for your history of preeclampsia. You should continue the Procardia and aspirin. Here in the emergency department we did give you a liter of IV fluids and your symptoms are feeling better. I encourage you to stay well-hydrated at home. Please discuss this ED visit with your OB at the clinic visit tomorrow. Return immediately if you have fainting episodes, sudden severe chest pain, sudden severe headache, loss of movement or any vaginal bleeding or loss of fluids
[2022-11-15 12:37] LABS: ALBUMIN/GLOBULIN RATIO 0.8 (1.0-2.2); BILIRUBIN,TOTAL 0.4 mg/dL (0.2-1.0); CALCIUM 8.4 mg/dL (8.5-10.3); CREATININE 0.5 mg/dL (0.4-1.0); POTASSIUM 3.8 mmol/L (3.5-5.0)
[2022-11-15 13:43] VITALS: BP 110/70
[2022-11-15 13:43] LABS: BILIRUBIN,URINE NEGATIVE (NEGATIVE); GLUCOSE, URINE (UA) NEGATIVE (NEGATIVE); KETONES,URINE (UA) NEGATIVE (NEGATIVE); LEUKOCYTE ESTERASE, URINE NEGATIVE (NEGATIVE); NITRITE,URINE NEGATIVE (NEGATIVE); OCCULT BLOOD,URINE NEGATIVE (NEGATIVE); PROTEIN,URINE NEGATIVE (NEGATIVE); UROBILINOGEN,URINE 0.2 (NORMAL) E.U./dL (NORMAL)
[2022-11-15 13:45] LABS: CLARITY,URINE CLEAR (CLEAR)
--- NOTE | 2022-11-15 18:32 | PROCEDURE REPORT ---
- HPI Diagnosis/Indication for NST: Gestational Hypertension (Right after she arrived to the emergency room she states that she started to feel the movement,She has been taking Procardia for blood pressure) Vital Signs Temperature 98.4 F 11/15/22 11:33 Heart Rate 104 H 11/15/22 11:33 Respiratory Rate 16 11/15/22 11:33 Blood Pressure 125/78 11/15/22 11:33 O2 Saturation 99 11/15/22 11:33 Temperature 98.2 F 11/15/22 13:38 Heart Rate 80 11/15/22 13:38 Respiratory Rate 18 11/15/22 13:38 Blood Pressure 110/70 11/15/22 13:38 O2 Saturation 100 11/15/22 13:38 If not protocol: Oxygen Flow, liters/minute - NST Procedure NST Procedure "27-year-old female presents to the emergency department at 29 weeks and 5 days . She reports that for the last 24 hours she has been feeling faint. Feels as though she is going to pass out. Sometimes she feels like she is losing her vision. She also feels a sensation of the room spinning. She had reported decreased movement when she presented to the emergency department." Start Time 09:40 Stop Time 10:15 Baseline: 130 Moderate variability Present acceleration 15 x15 no deceleration - Results and Plan Findings/Impression: Reactive nonstress test Plan: Her laboratory works all normal and nonstress test was reactive and she was reassured and advised to keep her appointment next week.
== END 2022-11-15 13:42 | disposition home or self-care (01) ==
LOC: ED 11:27
DX: O99.891 Other specified diseases and conditions complicating pregnancy (principal); R55 Syncope and collapse; O10.913 Unspecified pre-existing hypertension complicating pregnancy, third trimester; Z87.59 Personal history of other complications of pregnancy, childbirth and the puerperium; Z3A.30 30 weeks gestation of pregnancy; O99.333 Smoking (tobacco) complicating pregnancy, third trimester
CPT/HCPCS: 36415; 80053; 81001; 81003; 83690; 85025; 87086; 93005; 96360; 99283

== ENCOUNTER 2022-11-30 19:22 | Outpatient (CLI) | payer OTHER ==
--- NOTE | 2022-11-30 20:09 | PROVIDER PROGRESS NOTE ---
- HPI Chief Complaint: Pain, non-labor Current : Vital Signs Temperature 98.8 F 11/30/22 19:36 Heart Rate 94 11/30/22 19:36 Respiratory Rate 18 11/30/22 19:36 Blood Pressure 128/92 H 11/30/22 19:36 Temperature 98.8 F 11/30/22 19:36 Heart Rate 94 11/30/22 19:36 Respiratory Rate 18 11/30/22 19:36 Blood Pressure 128/92 H 11/30/22 19:36 O2 Saturation If not protocol: Oxygen Flow, liters/minute - Procedures OB Procedure Performed: NST Diagnosis/Indication for NST: Pre- Hypertension Service Date of procedure: 11/30/22 (Read: 11/30/2022) - Plan Plan: Patient is a 27-year-old -0-2-4 at 31 weeks 6 days gestation presenting to triage for vaginal pressure. She has been feeling intermittent [place], but nothing regular. She says today the vaginal pressure feels like a "bowling ball is going to fall out." Increased discharge the last several days, but no leaking fluid. She says normal bowel movements although every 2 to 3 days normal for her. She has good movement, no vaginal bleeding. She denies right upper quadrant pain, changes in vision. Mild headache today, but not persistent and n ot worrisome. She says she gets occasional headaches at baseline and this feels normal. Past medical history Anxiety Depression Chronic hypertension Past surgical history [place] teeth extraction Knee surgery Family history Mother: Bleeding disorder Maternal aunt with leukemia Social history Denies tobacco, alcohol, drugs Physical Exam Constitutional: alert, no acute distress, well hydrated, well developed, well nourished, appropriate dress. Cardiovascular: Regular rate and rhythm. Respiratory: no respiratory distress. Abdomen: Gravid, nondistended, nontender, no guarding. Psych: affect and mood appropriate, normal interaction, good eye contact. SVE: 0/0/-3. head palpable through vaginal wall. NST: FHT: 125 Beats per minute baseline, moderate variability, accelerations present, no decelerations. Reactive NST [place]: Quiescent assessment and plan 27-year-old -0-2-4 at 31 weeks 6 days gestation with vaginal pressure 1. Vaginal pressure: -Position of head low in pelvis likely explains the pressure. No contractions. No dilation. -Negative FFN -No sign of UTI. We will follow-up on vaginal swabs after discharge of the will likely take several hours and are likely not in need of emergent treatment. -Discharged with labor precautions 2. Vaginal discharge: -Swabs collected today, although this is not itching or burning, may contribute to some of the discomfort she feels. 3. 31 weeks gestation -Follow-up for routine care 4. Chronic hypertension -Continue nifedipine 30 mg extended release daily
[2022-11-30 20:17] LABS: BILIRUBIN,URINE NEGATIVE (NEGATIVE); GLUCOSE, URINE (UA) NEGATIVE (NEGATIVE); KETONES,URINE (UA) NEGATIVE (NEGATIVE); LEUKOCYTE ESTERASE, URINE NEGATIVE (NEGATIVE); NITRITE,URINE NEGATIVE (NEGATIVE); OCCULT BLOOD,URINE NEGATIVE (NEGATIVE); PH,URINE 5.5 PH (5.0-7.5); PROTEIN,URINE NEGATIVE (NEGATIVE); UROBILINOGEN,URINE 0.2 (NORMAL) E.U./dL (NORMAL)
[2022-11-30 20:19] LABS: CLARITY,URINE CLEAR (CLEAR)
[2022-11-30 20:28] LABS: BACTERIA,URINE None Seen /HPF (None Seen); RBC,URINE 0-5 /HPF (0-5); SQUAMOUS EPITHELIAL CELL,UR NONE SEEN (<= Few); WBC,URINE 0-3 /HPF (0-5)
[2022-11-30 21:11] VITALS: BP 128/82
[2022-11-30 22:40] LABS: BACTERIAL VAGINOSIS DNA NEGATIVE (NEGATIVE); CANDIDA GLABRATA DNA NEGATIVE (NEGATIVE); CANDIDA GROUP DNA NEGATIVE (NEGATIVE); CANDIDA KRUSEI DNA NEGATIVE (NEGATIVE); TRICHOMONAS VAGINALIS DNA NEGATIVE (NEGATIVE)
[2022-12-01 01:34] LABS: CHLAMYDIA TRACHOMATIS DNA NEGATIVE (NEGATIVE); NEISSERIA GONORRHOEAE DNA NEGATIVE (NEGATIVE)
== END 2022-11-30 21:05 | disposition home or self-care (01) ==
LOC: WFO 19:22 → FBP 19:24 → WFO 21:05
PROVIDERS: ATTEND Obstetrics & Gynecology
DX: O99.891 Other specified diseases and conditions complicating pregnancy (principal); R10.2 Pelvic and perineal pain; N89.8 Other specified noninflammatory disorders of vagina; O16.3 Unspecified maternal hypertension, third trimester; Z3A.31 31 weeks gestation of pregnancy
CPT/HCPCS: 59025; 81001; 81514; 82731; 87491; 87591; 87661; 99214; 99215

== ENCOUNTER 2022-12-14 18:48 | Outpatient (CLI) | payer OTHER ==
--- NOTE | 2022-12-15 15:22 | Ultrasound Report ---
PROCEDURE: OB F/U or Repeat INDICATIONS: HYPERTENSION OUTSIDE/PRIOR DATING DATA: Last menstrual period (LMP): 04/21/2022. LMP-based estimated date of delivery (ELVI): 01/26/2023. First dating scan (date and location): 06/11/2022. Estimated date of delivery (ELVI) from first dating scan: 01/28/2023. The below data below was generated using the ultrasound ELVI of 01/28/2023 TECHNIQUE: Real-time scanning was performed of the fetus, with image documentation and biometric measurements. COMPARISON: OB ultrasound 09/16/2022 FINDINGS: General: A single living intrauterine gestation is present. Presentation: Vertex Placenta: Placental position is posterior, without previa. Amniotic fluid index: 10.6 cm, within normal limits for gestational age. heart rate: 126 beats per minute. Maternal cervical canal: 3. cm long; normal length is 2.5 cm or more. biometrics: Biparietal diameter: 8.7 cm 35 weeks 1 day Head circumference: 32.7 cm 35 weeks 4 days Abdominal circumference: 30.9 cm 34 weeks 6 days Femur length: 5.9 cm 30 weeks 6 days Estimated gestational age from initial scan: 33 weeks 6 days Composite gestational age from present scan: 34 weeks 1 day Estimated weight and percentile: 2290 g 44th percentile Measurement variability in biometric dating: +/- 10 days from 12-20 weeks gestation, +/- 2 weeks from 20-30 weeks gestation, +/- 3 weeks at 30 weeks gestation or more. Other: Systolic to diastolic cord ratio is measures 0.52, 2.7, 2.3 N placenta, and fetus and at mid p ortions respectively. IMPRESSION: Single live intrauterine with ultrasound gestational age of 33 weeks 6 days. Doppler systolic to diastolic ratios as noted above. Reviewed by: Emani Mackey MD on 12/15/2022 3:20 PM PDT Approved by: Emani Mackey MD on 12/15/2022 3:20 PM PDT Station ID: [id number]
== END 2022-12-14 18:49 | disposition home or self-care (01) ==
LOC: DI 18:48
PROVIDERS: ATTEND Obstetrics & Gynecology
DX: O16.3 Unspecified maternal hypertension, third trimester (principal); Z3A.34 34 weeks gestation of pregnancy

== ENCOUNTER 2022-12-22 16:07 | Outpatient (CLI) | payer OTHER ==
[2022-12-22 16:51] LABS: BILIRUBIN,URINE NEGATIVE (NEGATIVE); GLUCOSE, URINE (UA) NEGATIVE (NEGATIVE); KETONES,URINE (UA) NEGATIVE (NEGATIVE); LEUKOCYTE ESTERASE, URINE NEGATIVE (NEGATIVE); NITRITE,URINE NEGATIVE (NEGATIVE); OCCULT BLOOD,URINE NEGATIVE (NEGATIVE); PROTEIN,URINE NEGATIVE (NEGATIVE); UROBILINOGEN,URINE 0.2 (NORMAL) E.U./dL (NORMAL)
[2022-12-22 16:52] LABS: CLARITY,URINE CLEAR (CLEAR)
--- NOTE | 2022-12-22 17:24 | PROVIDER PROGRESS NOTE ---
- HPI Chief Complaint: Decreased movement Current : Vital Signs Temperature 97.9 F 12/22/22 16:23 Heart Rate 83 12/22/22 16:23 Respiratory Rate 181 H 12/22/22 16:23 Temperature 97.9 F 12/22/22 16:23 Heart Rate 83 12/22/22 16:23 Respiratory Rate 181 H 12/22/22 16:23 Blood Pressure O2 Saturation If not protocol: Oxygen Flow, liters/minute - Procedures OB Procedure Performed: NST Diagnosis/Indication for NST: Decreased movement Service Date of procedure: 12/22/22 (Read 12/22/22) - Plan Plan: Patient is a 27-year-old -0-2-4 at 35 weeks 0 days gestation presenting to triage for decreased movement. She is also had some contractions throughout the day. She thinks they have been about every 10 to 15 minutes, but has not paid close attention. She denies leaking or bleeding, but does say she has had some mucus discharge, likely losing her mucous plug. She denies headache, right upper quadrant pain, changes in vision. Past medical history Chronic hypertension Anxiety/depression Past surgical history [place] teeth Knee surgery Family history Mother: Protein MICROFILM OPERATOR deficiency Social history Denies tobacco, alcohol, drugs Physical Exam Constitutional: alert, no acute distress, well hydrated, well developed, well nourished, appropriate dress. Cardiovascular: Regular rate and rhythm. Respiratory: no respiratory distress. Abdomen: nondistended, nontender, no guarding. Psych: affect and mood appropriate, normal interaction, good eye contact. SVE: 08/28/-3 FHT: 125 beats per baseline, moderate variability, accelerations present, no decelerations. Reactive NST [place]: 3-5 Assessment and plan 27-year-old -0-2-4 at 35 weeks 0 days gestation with decreased movement and contractions 1. Decreased movements: Numerous movements since arrival. Fetus is active NST reactive. Discussed kick counts with patient. 2. Contractions: -Initially irregular, but has periods of increased frequency of contractions. -Many contractions that she cannot feel. Patient not experience any while I was in the triage room, although tocometer showed uterine activity. -Cervix checked, found to be 1 cm, similar to check prior in clinic. Observed for 1 hour without cervical change, but patient felt contractions were getting more regular. Tocometer activity picked up and offered IV hydration, however patient declined. We gave 1 dose of corticosteroids as contractions became more intense. Began cb every 2 to 3 minutes was eventually again spaced to 2 to 5 minutes. Observe for 2 additional hours for a total of 3 hours and had no cervical change. She was discharged with strong labor precautions.
[2022-12-22] MEDS ORDERED: BETAMETHASONE 30 MG/5 ML VIAL IM ONE (18:24)
[2022-12-22] MEDS ORDERED: LACTATED RINGERS 500 ML IV ONE (18:25)
[2022-12-22] MEDS ORDERED: LACTATED RINGERS 1,000 ML IV SCH (19:00)
[2022-12-22 20:01] VITALS: BP 126/83
== END 2022-12-22 20:35 | disposition home or self-care (01) ==
LOC: WFO 16:07 → FBP 16:09 → WFO 20:35
PROVIDERS: ATTEND Obstetrics & Gynecology
DX: O36.8130 Decreased fetal movements, third trimester, not applicable or unspecified (principal); O47.03 False labor before 37 completed weeks of gestation, third trimester; Z3A.35 35 weeks gestation of pregnancy
CPT/HCPCS: 59025; 81001; 81003; 96372; 99215

== ENCOUNTER 2022-12-23 18:52 | Outpatient (CLI) | payer OTHER ==
[2022-12-23] MEDS ORDERED: BETAMETHASONE 30 MG/5 ML VIAL IM ONE (19:16)
[2022-12-23 19:23] VITALS: BP 132/83
== END 2022-12-23 19:08 | disposition home or self-care (01) ==
LOC: WFO 18:52 → FBP 18:55 → WFO 19:08
PROVIDERS: ATTEND Obstetrics & Gynecology
DX: O47.9 False labor, unspecified (principal)
CPT/HCPCS: 96372

== ENCOUNTER 2022-12-25 11:00 | Outpatient (CLI) | payer OTHER ==
[2022-12-25 11:16] VITALS: BP 125/81
--- NOTE | 2022-12-25 12:57 | PROCEDURE REPORT ---
- HPI Diagnosis/Indication for NST: Pre- Hypertension Current EDU 01/26/23 Gestation 35 Weeks and 3 Days 7 Para 4 Vital Signs Temperature 98.2 F 12/25/22 11:11 Heart Rate 82 12/25/22 11:11 Respiratory Rate 17 12/25/22 11:11 Blood Pressure 125/81 H 12/25/22 11:11 O2 Saturation 100 12/25/22 11:11 Temperature 98.2 F 12/25/22 11:30 Heart Rate 82 12/25/22 11:11 Respiratory Rate 17 12/25/22 11:11 Blood Pressure 125/81 H 12/25/22 11:11 O2 Saturation 100 12/25/22 11:11 If not protocol: Oxygen Flow, liters/minute - NST Procedure NST Procedure Start Date 12/25/22 Start Time 11:05 Stop Time 11:28 Vibroacoustic Stimulation Used No Patient States Movement Yes - Results and Plan Findings/Impression: Patient is a 27-year-old -0-2-4 at 35 weeks 3 days gestation presenting today for scheduled NST. NST Performed 12/25/2022 NST Read 12/25/2022 FHT: 135 bpm baseline, moderate variability, accelerations present, no decelerations. Reactive NST [place]: Quiescent Diagnosis 35 weeks gestation Chronic hypertension Continue with twice weekly NST.
== END 2022-12-25 11:35 | disposition home or self-care (01) ==
LOC: WFO 11:00 → FBP 11:01 → WFO 11:35
PROVIDERS: ATTEND Obstetrics & Gynecology
DX: O10.913 Unspecified pre-existing hypertension complicating pregnancy, third trimester (principal); O09.893 Supervision of other high risk pregnancies, third trimester; O99.891 Other specified diseases and conditions complicating pregnancy; R94.4 Abnormal results of kidney function studies; Z3A.35 35 weeks gestation of pregnancy
CPT/HCPCS: 59025

== ENCOUNTER 2022-12-25 11:43 | Outpatient (CLI) | payer OTHER ==
--- NOTE | 2022-12-25 13:51 | Ultrasound Report ---
PROCEDURE: OB Biophysical Profile INDICATIONS: CHRONIC HYPERTENSION COMPLICATING OUTSIDE/PRIOR DATING DATA: Last menstrual period (LMP): 04/21/2022. LMP-based estimated date of delivery (ELVI): 01/26/2023. First dating scan (date and location): 06/11/2022. Estimated date of delivery (ELVI) from first dating scan: 01/28/2023. The below data below was generated using the ultrasound ELVI of 01/28/2023 TECHNIQUE: Real-time scanning was performed of the fetus, with image documentation and biometric jony surements. Biophysical profile was also obtained. COMPARISON: OB ultrasound 12/14/2022 FINDINGS: General: A single living intrauterine gestation is present. Presentation: Vertex Placenta: Placental position is posterior, without previa. Amniotic fluid index: 13.2 cm, normal for gestational age. Largest pocket 4.4 cm. heart rate: 132 beats per minute. Maternal cervical canal: 3.7 cm long; normal length is 2.5 cm or more. No funneling. Estimated gestational age from prior clinical datin weeks 3 days. Biophysical profile: Tone: 2 points. Movement: 2 points. Respiration: 2 points. Largest pocket of fluid: 2 points. Umbilical artery Doppler: 2.2, 2.0, 2.2. Preserved diastolic flow. IMPRESSION: 1. [place] living intrauterine at 35 weeks 3 days based on prior dating. Vertex position. 2. Normal placenta and amniotic fluid. 3. Normal biophysical profile. Score 8 out of 8. Umbilical artery Doppler is within normal limits. Reviewed by: Wellington North MD on 12/25/2022 1:50 PM PDT Approved by: Wellington North MD on 12/25/2022 1:50 PM PDT Station ID: [id number]
== END 2022-12-25 11:44 | disposition home or self-care (01) ==
LOC: DI 11:43
PROVIDERS: ATTEND Obstetrics & Gynecology
DX: O10.913 Unspecified pre-existing hypertension complicating pregnancy, third trimester (principal); Z3A.35 35 weeks gestation of pregnancy

== ENCOUNTER 2022-12-29 08:00 | Outpatient (CLI) | payer OTHER | END 2022-12-29 23:59 | disposition home or self-care (01) | LOC: LAB.R 08:00 | PROVIDERS: ATTEND Nurse Practitioner | DX: Z34.90 Encounter for supervision of normal pregnancy, unspecified, unspecified trimester (principal); Z36.89 Encounter for other specified antenatal screening | CPT/HCPCS: 87797 ==

== ENCOUNTER 2022-12-30 12:23 | Outpatient (CLI) | payer OTHER ==
[2022-12-30 12:48] VITALS: BP 129/82
--- NOTE | 2022-12-30 13:00 | PROCEDURE REPORT ---
- HPI Diagnosis/Indication for NST: Pre- Hypertension Vital Signs Temperature 97.9 F 12/30/22 12:44 Heart Rate 85 12/30/22 12:44 Respiratory Rate 16 12/30/22 12:44 Blood Pressure 129/82 H 12/30/22 12:44 O2 Saturation 100 12/30/22 12:44 Temperature 97.9 F 12/30/22 12:48 Heart Rate 85 12/30/22 12:48 Respiratory Rate 16 12/30/22 12:48 Blood Pressure 129/82 H 12/30/22 12:48 O2 Saturation 100 12/30/22 12:44 If not protocol: Oxygen Flow, liters/minute - Results and Plan Plan: Patient is a 27-year-old -0-2-4 36 weeks 1 day gestation here for scheduled NST. NST Performed at 12/30/2022 NST Read 12/30/2022 FHT: 125 bpm baseline, moderate variability, accelerations present, no decelerations. Reactive NST [place]: Quiescent Diagnosis 36 weeks gestation Chronic hypertension Continue with twice weekly NST.
== END 2022-12-30 13:40 | disposition home or self-care (01) ==
LOC: WFO 12:23 → FBP 12:23 → WFO 13:40
PROVIDERS: ATTEND Obstetrics & Gynecology
DX: O10.913 Unspecified pre-existing hypertension complicating pregnancy, third trimester (principal); Z3A.36 36 weeks gestation of pregnancy
CPT/HCPCS: 59025; 99213

== ENCOUNTER 2022-12-31 13:40 | Outpatient (CLI) | payer OTHER ==
--- NOTE | 2022-12-31 14:39 | PROVIDER PROGRESS NOTE ---
- HPI Chief Complaint: Decreased movement Current : Vital Signs Temperature 98.4 F 12/31/22 13:56 Temperature 98.4 F 12/31/22 13:56 Heart Rate Respiratory Rate Blood Pressure O2 Saturation If not protocol: Oxygen Flow, liters/minute - Procedures OB Procedure Performed: NST Diagnosis/Indication for NST: Decreased movement Service Date of procedure: 12/31/22 (Read 12/31/2022) - Plan Plan: Patient is a 27-year-old -0-2-4 at 36 weeks 2 days gestation presenting for decreased movement. She was seen in clinic earlier and complained of decreased movement. She felt baby move earlier this morning, but no recent movements. Since arrival to triage, baby has been much more active. Was cb previous, but no recent contractions.No leaking or bleeding. Denies headache, change in vision, right upper quadrant pain. Physical Exam Constitutional: alert, no acute distress, well hydrated, well developed, well nourished, appropriate dress. Cardiovascular: Regular rate and rhythm. Respiratory: no respiratory distress. Abdomen: nondistended, nontender, no guarding. Psych: affect and mood appropriate, normal interaction, good eye contact. FHT: 135 beats pe minute r baseline, moderate variability, accelerations present, no decelerations.Reactive NST [place]: Quiescent SUSAN: 11 cm Assessment and plan 27-year-old -0-2-4 36 weeks 2 days gestation with decreased movement 1. Decreased movement -Numerous movement since arrival to L&D. Reactive NST. Modified BPP is normal with an adequate SUSAN and maximal vertical pocket. 2. 36 weeks gestation -Continue routine care.
[2022-12-31 15:27] VITALS: BP 129/86
== END 2022-12-31 14:38 | disposition home or self-care (01) ==
LOC: WFO 13:40 → FBP 13:41 → WFO 14:38
PROVIDERS: ATTEND Obstetrics & Gynecology
DX: O36.8130 Decreased fetal movements, third trimester, not applicable or unspecified (principal); Z3A.36 36 weeks gestation of pregnancy
CPT/HCPCS: 59025; 99212; 99213

== ENCOUNTER 2023-01-05 15:56 | Inpatient (IN) | payer OTHER ==
[2023-01-05 16:25] LABS: BASOPHILS % (AUTO) 0.2 %; EOSINOPHILS # (AUTO) 0.1 10^3/uL (0.0-0.7); HCT - HEMATOCRIT 35.5 % (37.0-47.0); HGB - HEMOGLOBIN 11.2 g/dL (12.0-16.0); LYMPHOCYTES # (AUTO) 1.9 10^3/uL (1.5-3.5); LYMPHOCYTES % (AUTO) 19.3 %; MEAN CORPUSCULAR HEMOGLOBIN 28.2 pg (27.0-31.0); MEAN CORPUSCULAR HGB CONC 31.5 g/dL (32.0-36.0); MEAN CORPUSCULAR VOLUME 89.4 fL (81.0-99.0); MONOCYTES # (AUTO) 0.6 10^3/uL (0.0-1.0); MONOCYTES % (AUTO) 6.4 %; NEUTROPHILS # (AUTO) 7.1 10^3/uL (1.5-6.6); NEUTROPHILS % (AUTO) 72.3 %; PLT - PLATELET COUNT 205 10^3/uL (130-450); RED BLOOD COUNT 3.97 10^6/uL (4.20-5.40); RED CELL DISTRIBUTION WIDTH 13.8 % (12.0-15.0); WHITE BLOOD COUNT 9.9 x10^3/uL (4.8-10.8)
[2023-01-05 16:38] LABS: ALBUMIN 2.7 g/dL (3.2-5.5); ALBUMIN/GLOBULIN RATIO 0.6 (1.0-2.2); BILIRUBIN,TOTAL 0.3 mg/dL (0.2-1.0); CREATININE 0.6 mg/dL (0.4-1.0); POTASSIUM 3.7 mmol/L (3.5-5.0); TOTAL PROTEIN 7.1 g/dL (6.7-8.2)
[2023-01-05 16:39] LABS: CREATININE,URINE 129.7 mg/dL; PROTEIN/CREATININE RATIO,URINE 0.1 (<=0.2)
[2023-01-05] MEDS ORDERED: LABETALOL 20 MG/4 ML SYRINGE IVP PRN ×3 (17:09)
[2023-01-05] MEDS ORDERED: miSOPROStoL 200 MCG TABLET BC PRN (17:09)
[2023-01-05] MEDS ORDERED: NIFEdipine 10 MG CAPSULE PO PRN (17:09)
[2023-01-05] MEDS ORDERED: hydrALAZINE INJ 20 MG/ML VIAL IVP PRN ×2 (17:09)
[2023-01-05] MEDS ORDERED: CARBOPROST TROMETHAMINE 250 MCG/ML AMP IM PRN (17:09)
[2023-01-05] MEDS ORDERED: OXYTOCIN/SODIUM CHLORIDE 500 ML IV PRN (17:09)
[2023-01-05] MEDS ORDERED: fentaNYL 100 MCG/2 ML VIAL IVP PRN (17:09)
[2023-01-05] MEDS ORDERED: TRANEXAMIC ACID IN NACL 1,000 MG/100 ML BAG IV PRN (17:09)
[2023-01-05] MEDS ORDERED: OXYTOCIN 10 UNIT/ML VIAL IM PRN (17:09)
[2023-01-05] MEDS ORDERED: miSOPROStoL 200 MCG TABLET PR PRN (17:09)
[2023-01-05] MEDS ORDERED: SODIUM CHLORIDE FLUSH 0.9% 10 ML SYRINGE IVP PRN (17:09)
[2023-01-05] MEDS ORDERED: lidocaine 1% 20 ML MDV ID PRN (17:09)
--- NOTE | 2023-01-05 17:29 | HISTORY & PHYSICAL EXAMINATION ---
Admit History - Visit Reason Visit Reason: Other (chronic hypertension with elevatd BPs) - : 6 Parity: 3 Care: positive: [facility] Risk/History: positive: Other (chrnoic hypertension, history of pre- eclampsia with previous pregnancies) Smoking Status: Current every day smoker - Mother's Labs Mother's Blood Type: positive: A Mother's RH: positive: Negative GBS: positive: Group B Step Negative Rubella Status: positive: Immune Meds/Allgy - Home Medications Home Medications: Ambulatory Orders Medication Instructions Recorded Confirmed Butalb/Acetam/Caff 50/325/40 1 each PO Q4-6H PRN 11/15/22 11/15/22 [Fioricet] Metoclopramide [Reglan] 10 mg PO TID 11/15/22 11/15/22 NIFEdipine [Procardia Xl] 30 mg PO DAILY 11/15/22 11/15/22 Pnv 119/Iron Fum/Folic Acid 1 each PO DAILY 11/15/22 11/15/22 [ 19 Tablet] - Allergies Allergies/Adverse Reactions: Allergies Allergy/AdvReac Type Severity Reaction Status Date / Time Sulfa (Sulfonamide Allergy Hives Verified 11/15/22 11:39 Antibiotics) Review of Systems - Cardiovascular Cariovascular: denies: Chest pain - Respiratory Respiratory: denies: SOB at rest - Gastrointestinal Gastrointestinal: denies: Abdominal pain - All Other Systems All Other Systems: reports: Reviewed and negative (Patient reports significant anxiety regarding history of pre-eclampsia with previous pregnancies. Denies headache, changes in vision, and right upper quadrant pain.) Physical - Abdominal Exam Vital Signs: Temp Pulse Resp BP Pulse Ox O2 Flow Rate 98.2 F 113 H 18 130/86 H 01/05/23 16:01 01/05/23 16:01 01/05/23 16:01 01/05/23 16:01 - Monitoring Strip Review: positive: Category I - Presentation Presentation: positive: Vertex - Speculum Exam Speculum Exam Performed: positive: No (Gen: NAD Pulm: CTA bilaterally Cardiac: RRR Abdomen: gravid, non-tender) Plan for Labor - Plan For Labor Plan for Labor: 1. chronic hypertension -increased BP today -nifedipine 30 mg XL daily -no signs/symptoms of pre-eclampsia -discussed risk of pulmonary issues with at 37 weeks. Risks, benefits, and alternatives discussed at length and all questions answered Rh negative Rubella immune GBS negative
[2023-01-05] MEDS ORDERED: SODIUM CHLORIDE FLUSH 0.9% 10 ML SYRINGE IVP SCH (18:00)
[2023-01-05] MEDS ORDERED: OXYTOCIN/SODIUM CHLORIDE 500 ML IV SCH (18:00)
--- NOTE | 2023-01-05 18:41 | PROVIDER PROGRESS NOTE ---
Labor Progress Note - Uterine Monitoring Uterine Monitoring Mode: positive: External toco - Monitoring Monitor Mode: positive: External ultrasound Heart Rate Variability: positive: Moderate (6-25 bmp) Accelerations: positive: Present, 15x15 Decelerations: positive: None Strip Review: positive: Category I - Vaginal Exam Dilation (in cm): 1.5 Effacement (%): 50 Station: -3 - Labor Progress Note Labor Progress Note/Additional Text: cervical ripening balloon placed 60 mL uterine/ 40 mL vaginal starting pitocin plan of care discussed with patient and all questions answered
[2023-01-05] MEDS: LACTATED RINGERS 1,000 ML IV SCH (19:08)
[2023-01-05] MEDS ORDERED: ACETAMINOPHEN 650 MG SUPP PR PRN (20:42)
[2023-01-05] MEDS ORDERED: FAMOTIDINE 20 MG/2 ML VIAL IVP SCH (21:00)
--- NOTE | 2023-01-05 21:47 | PROVIDER PROGRESS NOTE ---
Labor Progress Note - Uterine Monitoring Uterine Monitoring Mode: positive: External toco Contraction Frequency (min/apart): not tracing Contraction Intensity: positive: Mild to moderate Uterine Resting Tone: positive: Soft - Monitoring Monitor Mode: positive: External ultrasound Heart Rate Variability: positive: Moderate (6-25 bmp) Accelerations: positive: Present, 15x15 Strip Review: positive: Category I - Vaginal Exam Dilation (in cm): 3 Effacement (%): 60 Station: -3 Cervical Position: Midposition - Labor Progress Note Labor Progress Note/Additional Text: Pitocin at 6, patient starting to feel contractions Cervical ripening balloon came out. wellbeing is reassuring.
[2023-01-06] MEDS ORDERED: ROPIVACAINE 0.2% 200 MG/100 ML BAG EP ONE (02:06)
[2023-01-06] MEDS ORDERED: NALOXONE 0.4 MG/ML VIAL IVP PRN (02:36)
[2023-01-06] MEDS ORDERED: ROPIVACAINE 0.2% 200 MG/100 ML BAG EP PRN (02:36)
--- NOTE | 2023-01-06 02:36 | ANESTHESIA ---
Pre-Anesthesia VS, & Labs - Diagnosis active labor - Procedure vaginal delivery Vital Signs: Temp Pulse Resp BP Pulse Ox O2 Flow Rate 37.4 C 96 18 119/103 H 99 01/05/23 20:00 01/05/23 20:00 01/05/23 20:00 01/05/23 20:00 01/05/23 20:00 Height: 5 ft 5 in Weight (kg): 91.172 kg Body Mass Index: 33.4 BMI Classification: Obese - NPO Last Fluid Intake: clear liquids - Is Patient ?: Yes - Lab Results Current Lab Results: Laboratory Tests 01/05/23 18:55: Blood Type A NEGATIVE, Antibody Screen POSITIVE, Antibody Identification See Comments, AAYUSH, IgG Specific Not Reportable, AAYUSH, Polyspecific NEGATIVE, AAYUSH, C3d Specific Not Reportable, Crossmatch See Detail 01/05/23 16:19: Sodium 139, Potassium 3.7, Chloride 105, Carbon Dioxide 25, A nion Gap 9.0, BUN 9, Creatinine 0.6, Estimated GFR (MDRD) 120, Glucose 109 H, Calcium 9.0, Total Bilirubin 0.3, AST 24, ALT 20, Alkaline Phosphatase 108, Total Protein 7.1, Albumin 2.7 L, Globulin 4.4 H, Albumin/Globulin Ratio 0.6 L 01/05/23 16:19: WBC 9.9, RBC 3.97 L, Hgb 11.2 L, Hct 35.5 L, MCV 89.4, MCH 28.2, MCHC 31.5 L, RDW 13.8, Plt Count 205, MPV 11.0 H, Neut # (Auto) 7.1 H, Lymph # (Auto) 1.9, [place] # (Auto) 0.6, Eos # (Auto) 0.1, Baso # (Auto) 0.0, Absolute Nucleated RBC 0.00, Nucleated RBC % 0.0 Lab results reviewed: Yes Fish Bones: 01/05/23 16:19 01/05/23 16:19 Home Medications and Allergies Active Medications Acetaminophen (Acetaminophen 650 Mg Supp) 325 mg DE Q6HR PRN PRN Reason: Pain or Fever > 38C (100.4F) Carboprost Tromethamine (Carboprost Tromethamine 250 Mcg/Ml Amp) 250 mcg IM .ONCE PRN PRN Reason: Hemorrhage Famotidine (Famotidine 20 Mg/2 Ml Vial) 20 mg IVP BID [facility] Last Admin: 01/05/23 20:06 Dose: 20 mg Fentanyl (Fentanyl 100 Mcg/2 Ml Vial) 50 mcg IVP Q1H PRN PRN Reason: Severe Pain (score 7-10) Last Admin: 01/05/23 22:30 Dose: 50 mcg Hydralazine HCl (Hydralazine Inj 20 Mg/Ml Vial) 5 - 10 mg IVP Q20M PRN; Protocol PRN Reason: SBP> or= 160 OR DBP> or= 110 Hydralazine HCl (Hydralazine Inj 20 Mg/Ml Vial) 10 mg IVP .ONCE PRN; Protocol PRN Reason: SBP> or= 160 OR DBP> or= 110 Oxytocin/Sodium Chloride (Pitocin/Sodium Chloride) 500 mls @ 999 mls/hr IV PRN PRN; Protocol PRN Reason: POST- HEMORR PREVENTION Tranexamic Acid (Tranexamic 1,000 Mg/100ml-Nacl) 1,000 mg in 100 mls @ 600 mls/hr IV Q30M PRN PRN Reason: EBL >1200mL and within 3hr Lactated Ringer's (Lr) 1,000 mls @ 75 mls/hr IV .[id number] [facility] Last Admin: 01/05/23 19:08 Dose: 125 mls/hr Oxytocin/Sodium Chloride (Pitocin/Sodium Chloride) 500 mls @ 2 mls/hr IV TITR EMY; Protocol Last Titration: 01/06/23 01:12 Dose: 14 milliunit/min, 14 mls/hr Labetalol HCl (Labetalol 20 Mg/4 Ml Syringe) 20 - 80 mg IVP Q10M PRN; Protocol PRN Reason: SBP> or= 160 OR DBP> or= 110 Labetalol HCl (Labetalol 20 Mg/4 Ml Syringe) 20 mg IVP .ONCE PRN; Protocol PRN Reason: SBP> or= 160 OR DBP> or= 110 Labetalol HCl (Labetalol 20 Mg/4 Ml Syringe) 20 - 40 mg IVP Q10M PRN; Protocol PRN Reason: SBP> or= 160 OR DBP> or= 110 Lidocaine HCl (Lidocaine 1% 20 Ml Mdv) 20 ml ID .ONCE PRN PRN Reason: PERINEAL REPAIR Stop: 01/08/23 17:09 Misoprostol (Misoprostol 200 Mcg Tablet) 600 mcg BC .ONCE PRN PRN Reason: Hemorrhage Misoprostol (Misoprostol 200 Mcg Tablet) 800 mcg DE .ONCE PRN PRN Reason: Hemorrhage Nifedipine (Nifedipine 10 Mg Capsule) 10 - 20 mg PO Q20M PRN; Protocol PRN Reason: SBP> or= 160 OR DBP> or= 110 Oxytocin (Oxytocin 10 Unit/Ml Vial) 10 unit IM .ONCE PRN PRN Reason: Step One if no IV access. Sodium Chloride (Sodium Chloride Flush 0.9% 10 Ml Syringe) 10 ml IVP PRN PRN PRN Reason: NEEDED PER PROVIDER ORDERS Sodium Chloride (Sodium Chloride Flush 0.9% 10 Ml Syringe) 10 ml IVP Q8H EMY Butalb/Acetam/Caff 50/325/40 [Fioricet] 1 each PO Q4-6H PRN 11/15/22 Metoclopramide [Reglan] 10 mg PO TID 11/15/22 NIFEdipine [Procardia Xl] 30 mg PO DAILY 11/15/22 Pnv 119/Iron Fum/Folic Acid [ 19 Tablet] 1 each PO DAILY 11/15/22 Allergies/Adverse Reactions: Allergies Allergy/AdvReac Type Severity Reaction Status Date / Time Sulfa (Sulfonamide Allergy Hives Verified 11/15/22 11:39 Antibiotics) Anes History & Medical History - Anesthetic History Anesthesia Complications: reports: No previous complications - Medical History Cardiovascular: reports: Hypertension Pulmonary: reports: None Gastrointestinal: reports: None Urinary: reports: None Neuro: reports: Migraines Musculoskeletal: reports: None Endocrine/Autoimmune: reports: None Blood Disorders: reports: None Skin: reports: None Smoking Status: Never smoker Psychosocial: reports: No issues indicated History of Cancer?: No - Surgical History Orthopedic: reports: ACL reconstruction - Obstetrical History : 6 Parity: 3 Events: reports: Other (chrnoic hypertension, history of pre-eclampsia with previous pregnancies) Exam General: Alert, Oriented x3, Cooperative, No acute distress Dental: WNL Mouth Openin Fingerbreadth Neck Mobility: Normal Mallampati classification: II Thyromental Distance: 4-6 cm Mental/Cognitive Status: Alert/Oriented X3, Normal for patient Plan Anesthesia Type: Epidural Consent for Procedure(s) Verified and Reviewed: Yes Code Status: Attempt Resuscitation ASA classification: 2-Mild systemic disease Is this case an emergency?: No
--- NOTE | 2023-01-06 03:28 | PROVIDER PROGRESS NOTE ---
Labor Progress Note - Uterine Monitoring Uterine Monitoring Mode: positive: External toco Contraction Frequency (min/apart): irregular Contraction Intensity: positive: Moderate Uterine Resting Tone: positive: Soft - Monitoring Monitor Mode: positive: External ultrasound Heart Rate Variability: positive: Moderate (6-25 bmp) Accelerations: positive: Present, 15x15 - Vaginal Exam Dilation (in cm): 4 Effacement (%): 60 Station: -1 Cervical Position: Midposition - Labor Progress Note Labor Progress Note/Additional Text: Patient has epidural AROM with clear fluid wellbeing is reassuring
[2023-01-06] MEDS: ePHEDrine 50 MG/ML VIAL IVP PRN ×3 (03:40→03:52)
[2023-01-06] MEDS ORDERED: ONDANSETRON 4 MG/2 ML VIAL IVP PRN (07:57)
[2023-01-06] MEDS: LACTATED RINGERS 1,000 ML IV SCH ×4 (08:19→23:00)
--- NOTE | 2023-01-06 09:44 | PROVIDER PROGRESS NOTE ---
Labor Progress Note - Uterine Monitoring Uterine Monitoring Mode: positive: External toco Contraction Frequency (min/apart): 3-4 minutes Contraction Intensity: positive: Strong Uterine Resting Tone: positive: Soft - Monitoring Monitor Mode: positive: External ultrasound Heart Rate Variability: positive: Moderate (6-25 bmp) Accelerations: positive: Present, 15x15 Decelerations: positive: Late (occasional) Strip Review: positive: Category II - Vaginal Exam Dilation (in cm): 6-7 Effacement (%): 70 Station: 0 - Labor Progress Note Labor Progress Note/Additional Text: IUPC placed to better determine early versus late decelerations, will continue to monitor
[2023-01-06] MEDS: ACETAMINOPHEN 325 MG TABLET PO PRN ×3 (10:39→22:54)
--- NOTE | 2023-01-06 11:35 | DELIVERY NOTE ---
Delivery Note - Labor Labor: positive: Induced by ARM, Induced by oxytocin - Infant Delivery Method Delivery Method: positive: Spontaneous vaginal delivery - Cervical Ripening Method Cervical Ripening Method: positive: Balloon device, Oxytocin - Presentation Presentation: positive: Vertex, OLIVIER - right occiput anterior - Nuchal Cord Nuchal Cord: positive: None - Anesthetic Anesthetic Type: - Amniotic Fluid Description Amniotic Fluid Description: positive: Clear - Episiotomy Type Episiotomy Type: positive: None - Laceration Laceration: positive: None - Delivery Outcome Delivery Outcome: positive: Livebirth - [place]: positive: Placed in direct skin contact with mother, Stimulated, Warmed, [place] used - Cord Cord: positive: 2 vessels - Placenta Placenta: positive: Intact, Spontaneous - Estimated Blood Loss Estimated Blood Loss (in cc): 100 - Post Delivery Events Post Delivery Events: positive: No post delivery events - Delivery Comments (Free Text/Narrative) Delivery Comments (Free Text/Narrative): - Delivery Comments (Free Text/Narrative) Delivery Comments (Free Text/Narrative): Stage I: Patient presenting for induction of labor for chronic hypertension Cervical ripening balloon placed and pitocin started. AROM with clear fluid after CRB fell out. Patient received an epidural for anesthesia. Stage II: Female infant was atraumatcally delivered from OLIVIER position. There was no nuchal cord. The anterior shoulder was delivered without difficulty followed by the posterior shoulder and body. Infant was vigorous at delivery. Infant was bulb suctioned and cord was doubly clamped and cut. Infant was placed on mom. Weight and APGARS pending Stage III: Gentle cord traction and crede maneuver were used. Placenta delivered spontaneously. 3 vessel cord. Course: Uterine tone was firm with massage after delivery of the placenta. Oxytocin was administered IV. The perineum was intact. EBL 100 mL
--- NOTE | 2023-01-06 11:40 | PROCEDURE REPORT ---
Hospitalist Procedure Note - Procedure Note Procedure Note: - Delivery Comments (Free Text/Narrative) Delivery Comments (Free Text/Narrative): Stage I: Patient presenting for induction of labor for chronic hypertension Cervical ripening balloon placed and pitocin started. AROM with clear fluid after CRB fell out. Patient received an epidural for anesthesia. Stage II: Female infant was atraumatcally delivered from OLIVIER position. There was no nuchal cord. The anterior shoulder was delivered without difficulty followed by the posterior shoulder and body. Infant was vigorous at delivery. Infant was bulb suctioned and cord was doubly clamped and cut. Infant was placed on mom. Weight and APGARS pending Stage III: Gentle cord traction and crede maneuver were used. Placenta delivered spontaneously. 3 vessel cord. Course: Uterine tone was firm with massage after delivery of the placenta. Oxytocin was administered IV. The perineum was intact. EBL 100 mL
[2023-01-06] MEDS: IBUPROFEN 800 MG TABLET PO SCH ×2 (14:18→19:42)
[2023-01-06] MEDS: oxyCODONE 5 MG TABLET PO SCH (19:42)
[2023-01-06] MEDS ORDERED: oxyCODONE 5 MG TABLET PO SCH (20:00)
[2023-01-06] MEDS: DOCUSATE SODIUM 100 MG CAPSULE PO SCH (22:54)
[2023-01-07] MEDS: IBUPROFEN 800 MG TABLET PO SCH ×4 (01:18→20:36)
[2023-01-07] MEDS: oxyCODONE 5 MG TABLET PO SCH ×3 (01:19→14:21)
[2023-01-07] MEDS: ACETAMINOPHEN 325 MG TABLET PO PRN ×3 (05:18→18:19)
[2023-01-07] MEDS: LACTATED RINGERS 1,000 ML IV SCH (08:00)
[2023-01-07] MEDS: DOCUSATE SODIUM 100 MG CAPSULE PO SCH (08:14)
--- NOTE | 2023-01-07 09:50 | PROVIDER PROGRESS NOTE ---
Subjective - Subjective Subjective: Subjective Patient reports she is doing well. Lochia appropriate. Denies heavy bleeding. Ambulating. Pelvic and abdominal pain well-controlled. Tolerating oral intake. Diet: Regular. Voiding without difficulty. Passing flatus. Denies BM. Patient is bonding with baby in room Breast feeding going well. Denies feeling lightheaded, dizzy or excessively fatigued. Objective General: Alert, oriented, no apparent distress. Cardiovascular: Regular rate. Regular rhythm. Lungs: No increased work of breathing. Abdomen: Uterus firm. Below umbilicus. No guarding or rebound. Extremities: No pain on palpation. No cords palpated. Distal pulses intact. Assessment and Plan day 1. -Routine care -Anticipate discharge tomorrow Chronic hypertension blood pressure well controlled Rh- -RhoGAM work-up Objective - Vital Signs/Intake & Output Vital Signs: Vital Signs x48h Temp Pulse Resp BP Pulse Ox 01/07/23 09:00 98.4 F 90 16 120/68 100 Intake & Output: Intake & Output 01/04/23 01/05/23 01/06/23 01/07/23 23:59 23:59 23:59 23:59 Intake Total 27.367 5108.383 Output Total 2275 Balance 27.367 2833.383 - Lab Results Fish Bones: 01/05/23 16:19 01/05/23 16:19 Other Labs: Lab Results x24hrs 01/06/23 Range/Units 15:02 Blood Type A NEGATIVE Weak D (Du) WEAK-D NEGATIVE Maternal Bleed NEGATIVE (NEGATIVE)
[2023-01-07] MEDS ORDERED: RHO(D) IMMUNE GLOBULIN 300 MCG SYRINGE IM ONE (14:27)
[2023-01-08] MEDS: ACETAMINOPHEN 325 MG TABLET PO PRN ×2 (00:50→06:26)
[2023-01-08] MEDS: DOCUSATE SODIUM 100 MG CAPSULE PO SCH ×2 (00:54→09:55)
[2023-01-08] MEDS: oxyCODONE 5 MG TABLET PO SCH ×3 (01:24→09:57)
[2023-01-08] MEDS: IBUPROFEN 800 MG TABLET PO SCH ×2 (05:33→11:56)
--- NOTE | 2023-01-08 06:49 | DISCHARGE SUMMARY ---
Discharge Summary Admit Date: 01/05/23 Discharge Date: 01/08/23 Discharging Provider: Fox Padilla MD Code Status: Attempt Resuscitation Condition at Discharge: Good Discharge Disposition: 01 Home, Self Care - DIAGNOSES Admission Diagnoses: 37 weeks gestation Chronic hypertension Discharge Diagnoses with Status of Each Condition: 37 weeks gestation Chronic hypertension Spontaneous vaginal delivery Delivery of live ordaz - HPI History of Present Illness: Subjective Patient reports she is doing well. Lochia appropriate. Denies heavy bleeding. Ambulating. Pelvic and abdominal pain well-controlled. Tolerating oral intake. Diet: Regular. Voiding without difficulty. Passing flatus. Denies BM. Patient is bonding with baby in room Breast feeding going well. Denies feeling lightheaded, dizzy or excessively fatigued. Objective General: Alert, oriented, no apparent distress. Cardiovascular: Regular rate. Regular rhythm. Lungs: No increased work of breathing. Abdomen: Uterus firm. Below umbilicus. No guarding or rebound. Extremities: No pain on palpation. No cords palpated. Distal pulses intact. - HOSPITAL COURSE Hospital Course: Patient presented at 37 weeks gestation for induction of labor secondary to chronic hypertension. She had a cervical ripening balloon and oxytocin. AROM was performed with clear fluid. She received an epidural for pain control. Delivery delivery was uncomplicated. course was also uncomplicated. She was discharged on day 2. weight: 3387 grams - ALLERGIES Allergies/Adverse Reactions: Allergies Allergy/AdvReac Type Severity Reaction Status Date / Time Sulfa (Sulfonamide Allergy Hives Verified 11/15/22 11:39 Antibiotics) - MEDICATIONS Home Medications: Ambulatory Orders Medication Instructions Recorded Confirmed Butalb/Acetam/Caff 50/325/40 1 each PO Q4-6H PRN 11/15/22 11/15/22 [Fioricet] Metoclopramide [Reglan] 10 mg PO TID 11/15/22 11/15/22 NIFEdipine [Procardia Xl] 30 mg PO DAILY 11/15/22 11/15/22 Pnv 119/Iron Fum/Folic Acid 1 each PO DAILY 11/15/22 11/15/22 [ 19 Tablet] - LABS Result Diagrams: 01/05/23 16:19 01/05/23 16:19 - FOLLOW UP Follow Up: With Arely Sorensen DO in 1 week - TIME SPENT Time Spent in Discharge (Minutes): 30
--- NOTE | 2023-01-08 06:51 | Discharge Plan ---
Discharge Plan Problem Reviewed?: Yes Disposition: Home, Self Care Condition: Good Weight Bearing: Full Weight Instruction Topics: Vaginal After, Depression No Smoking: If you smoke, Please STOP! Call for help. Follow-up with: Arely Sorensen DO [Provider Admit Priv/Credential] -
[2023-01-08 07:33] VITALS: BP 111/73
--- NOTE | 2023-01-08 13:36 | Labor Flowsheet ---
Labor Flowsheet Datetime Report Generated by CPN: 01/08/2023 13:36 Datetime: 01/08/2023 12:37 VITAL SIGNS NBP Sys/Shanda/Mean (mmHg): 127 : 76 : 87 Pulse: 75 Datetime: 01/06/2023 17:30 SpO2 (%): 100 Datetime: 01/06/2023 13:45 Stage of : Recovery Patient Care Comments: Up to BR Datetime: 01/06/2023 13:01 Pain Presence: None/Denies Datetime: 01/06/2023 11:06 Comments: head Datetime: 01/06/2023 11:04 STAGE 2 Pushing: Coached on Pushing; Urge to Push Pushing Position: Pushing Lithotomy Pushing Progress: Perineal Bulging; Rectal Bulging Datetime: 01/06/2023 11:01 LaborFlag: Labor Datetime: 01/06/2023 10:53 Contraction Comments: iupc removed VAGINAL EXAM Dilatation (cm): 10.0 Effacement (%): 100 Station: 0 I/O Interventions: Nettles Discontinued Datetime: 01/06/2023 10:45 UTERINE ACTIVITY Monitor Mode: Internal Frequency (min): 3 Quality: Moderate Duration (sec): 50-80 Pattern: Normal: <= 5 Contractions in 10 Minutes Resting Tone (Palpate): Relaxed Resting Tone IUP (mmHg): 0 Intensity IUP (mmHg): 50 Pitocin Checklist: At Least 1 Acceleration of 15 bpm x 15 Seconds in 30 Minutes or Adequate Variabi lity; No More than 1 Late Deceleration Occurred in Past 30 Minutes; No More than 2 Variable Decelerat ions > 60 Seconds in Duration and decreasing >60 bpm in 30 minutes; No More than 5 Uterine Contractio ns in 10 Minutes for any 20 Minute Interval; Uterus Palpates Soft between Contractions ASSESSMENT A Monitor Mode: Telemetry FHR Baseline Rate : 120 FHR Baseline Changes: No Baseline Change Variability: Moderate 6-25 bpm Accelerations: 15X15 Decelerations: Early Actions for Decelerations: Provider Notified Category: Category I Datetime: 01/06/2023 10:41 MEDICATIONS Pitocin (milliunits): Increased to @ 32 COMMUNICATION Communication: RN at Bedside; RN Reviewed Strip; Provider at Bedside Datetime: 01/06/2023 10:30 [place] Units (mmHg): 200 Datetime: 01/06/2023 09:30 Temperature (C): 37.0 Temperature Route: Oral Datetime: 01/06/2023 09:06 Anesthesia Level Check: T8- Ribs Datetime: 01/06/2023 08:45 Exam by: Jonique Nelson RN Datetime: 01/06/2023 08:22 Strip Reviewed by: Dr. Fox Randy Datetime: 01/06/2023 08:00 Monitor Interventions for UA: [place] Adjusted Datetime: 01/06/2023 07:53 Patient Position/Activity: Left Extreme Datetime: 01/06/2023 07:51 Vaginal Bleeding: None Cervix, Consistency: Soft Cervix, Position: Midposition Datetime: 01/06/2023 07:02 Monitor Interventions for FHR: Ultrasound Adjusted Datetime: 01/06/2023 06:32 Vital Sign Comments: bp re[pl;eaced, pt arm down at side rather than elevated Datetime: 01/06/2023 05:15 PAIN Pain Scale: 4 Pain Type: Cramping Datetime: 01/06/2023 05:12 Notification Reason: Maternal Vital Sign Change Communication Comments: hypotensio nasymptomatic Datetime: 01/06/2023 04:30 Pain Coping: Sleeping Datetime: 01/06/2023 03:44 Magnesium/Antihypertensives: Ephedrine IV (mg) @ 5 Datetime: 01/06/2023 03:22 Membranes Rupture Method: Artificial Amniotic Fluid Color: Clear Datetime: 01/06/2023 02:51 PATIENT CARE IV/Blood Work: IV Bolus Started Datetime: 01/06/2023 02:17 Epidural Procedure: Test Dose Datetime: 01/06/2023 02:13 PROCEDURE TIME OUT Procedure Verify: Correct Patient Identity; Correct Side and Site are Marked; Accurate Procedure Co nsent Form; Agreement on Procedure to be Done; Correct Patient Position Epidural Positioning: Sitting Anesthesia Comments: lidocain infiltration Datetime: 01/06/2023 02:04 ANESTHESIA Anesthesia Plans: Epidural Provider Notified (Name): A FAine QUENCHER OPERATOR Datetime: 01/06/2023 01:20 Pain Assessment Comments: manegable with nitrous gas Datetime: 01/06/2023 00:01 Respirations: 18 Pain Relief Measures: Comfort Measures Comfort Measures: Breathing/Relaxation; Family Support Datetime: 01/05/2023 23:35 Medication Comments: nitrous gas started Datetime: 01/05/2023 23:33 TEACHING Instructional Method: Demo; Verbal; Verbalized Understanding Pain Management: Comfort Measures Teaching Comments: nitrous gas use in labor Datetime: 01/05/2023 22:30 Vaginal Exam Comments: unchanged, 3 thick and posterior prior to administratio nof IV fentynal Analgesics/Sedatives: Fentanyl (mcg) @ 50@2234 Datetime: 01/05/2023 20:19 Antiemetics/Antacids: Pepcid IV (mg) @ 20@2020 Datetime: 01/05/2023 20:05 Pain Location: Abdomen; Head MATERNAL ASSESSMENT Level of Consciousness: Alert DTR's/Clonus: DTRs 1+ Headache: Temporal Breath Sounds, Left: Clear and Equal Breath Sounds, Right: Clear and Equal Nausea/Vomiting: Denies RUQ Epigastric Pain: Denies
--- NOTE | 2023-01-09 23:13 | PROCEDURE REPORT ---
- HPI Diagnosis/Indication for NST: Pre- Hypertension Current EDU 01/26/23 Gestation 37 Weeks and 0 Days 7 Para 4 Vital Signs Temperature 98.2 F 01/05/23 16:01 Heart Rate 135 H 01/05/23 16:01 Respiratory Rate 18 01/05/23 16:01 Blood Pressure 130/86 H 01/05/23 16:01 Temperature 98.8 F 01/08/23 05:31 Heart Rate 79 01/08/23 07:30 Respiratory Rate 18 01/08/23 07:30 Blood Pressure 111/73 01/08/23 07:30 O2 Saturation 99 01/08/23 01:15 If not protocol: Oxygen Flow, liters/minute 99 01/05/23 20:00 - NST Procedure NST Procedure Start Date 01/05/23 Start Time 16:08 Stop Time 16:39 Vibroacoustic Stimulation Used No Patient States Movement Yes NST at 37 weeks, reactive NST - Results and Plan Plan: Reactive NST, induction of labor for chronic hypertension. Risks, benefits, and alternatives discussed with patient and all questions answered.
== END 2023-01-08 12:25 | disposition home or self-care (01) | DRG 807 ==
LOC: WFO 15:56 → FBP 15:58 → WFO 17:20
PROVIDERS: ADMIT Obstetrics & Gynecology Obstetrics; ATTEND Obstetrics & Gynecology
PROC: 3E033VJ Introduction of Other Hormone into Peripheral Vein, Percutaneous Approach (ICD-10-PCS; 2023-01-05)
PROC: 0U7C7ZZ Dilation of Cervix, Via Natural or Artificial Opening (ICD-10-PCS; 2023-01-05)
PROC: 10E0XZZ Delivery of Products of Conception, External Approach (ICD-10-PCS; principal; 2023-01-06)
PROC: 10907ZC Drainage of Amniotic Fluid, Therapeutic from Products of Conception, Via Natural or Artificial Opening (ICD-10-PCS; 2023-01-06)
PROC: 10H07YZ Insertion of Other Device into Products of Conception, Via Natural or Artificial Opening (ICD-10-PCS; 2023-01-06)
DX: O10.92 Unspecified pre-existing hypertension complicating childbirth (principal); Z37.0 Single live birth; O99.334 Smoking (tobacco) complicating childbirth; F17.200 Nicotine dependence, unspecified, uncomplicated; Z3A.37 37 weeks gestation of pregnancy; O99.214 Obesity complicating childbirth
CPT/HCPCS: 36415; 59025; 80053; 82570; 83033; 84156; 85025; 86850; 86870; 86880; 86900; 86901; 86922; 99215; A9270; J7120; 86920; 99213

== ENCOUNTER 2023-06-28 12:28 | Outpatient (CLI) | payer OTHER, MEDICAID | END 2023-06-28 23:59 | disposition critical access hospital (66) | LOC: EMS 12:28 | DX: R45.851 Suicidal ideations (principal) | CPT/HCPCS: A0425; A0429 ==

== ENCOUNTER 2023-06-28 13:07 | Emergency (ER) | payer OTHER, MEDICAID ==
--- NOTE | 2023-06-28 13:17 | ED Physician Documentation ---
PD HPI MHE - Stated complaint Stated Complaint: SI/3 MO POST - History obtained from History obtained from: Patient - Additional information Additional information: This is a 28-year-old female who is approximately 5 months and presents with concerns about depression. She also in the past has had suicidal ideation. Patient states that she has 5 young children at home, and her ex- is on deployment, she does have support of her boyfriend but she feels somewhat overwhelmed with things and feels depressed. She had moved back to [place] where she is from with plans that her ex- was going to also move there to be noted the children and help out however he then really enlisted in the and she was forced to move back here in order to be near him with the kids. She states all these transitions have been very difficult for her so she does have the support of her boyfriend at home. Her family is out of the area and there is no one else to help. She is on Wellbutrin but does not think it is helping much. She has tried to go through PCP and tried to find a therapist but none of them have returned her calls or been able to see her. She is not suicidal today but has had thoughts of suicide in the past including jumping off a bridge. She states she was "more suicidal" when she moved back to [place] and then found out that her ex- was relisting in the . She is feeling somewhat better now but still feels like she needs some help and is interested in talking with someone today.Denies any drug or alcohol use, and has not attempted suicide today. PD PAST MEDICAL HISTORY - Past Medical History Past Medical History: Yes Cardiovascular: Hypertension Respiratory: None Neuro: Migraines Endocrine/Autoimmune: None GI: None MATERIALS DIRECTOR: None : None HEENT: None Psych: Anxiety Musculoskeletal: None Derm: None - Past Surgical History Past Surgical History: No Ortho: ACL reconstruction - Present Medications Home Medications: Ambulatory Orders Medication Instructions Recorded Confirmed Butalb/Acetam/Caff 50/325/40 1 each PO Q4-6H PRN 11/15/22 06/28/23 [Fioricet] Pnv 119/Iron Fum/Folic Acid 1 each PO DAILY 11/15/22 06/28/23 [ 19 Tablet] buPROPion [Wellbutrin Xl] 150 mg PO DAILY 06/28/23 06/28/23 - Allergies Allergies/Adverse Reactions: Allergies Allergy/AdvReac Type Severity Reaction Status Date / Time Sulfa (Sulfonamide Allergy Hives Verified 06/28/23 13:26 Antibiotics) - Social History Does the pt smoke?: Yes Smoking Status: Never smoker Does the pt drink ETOH?: No Does the pt have substance abuse?: No - Immunizations Immunizations are current?: Yes - POLST Patient has POLST: No PD ED PE NORMAL - Vitals Vital signs reviewed: Yes - General General: Alert and oriented X 3, No acute distress, Well developed/nourished - HEENT HEENT: Atraumatic, Moist mucous membranes - Cardiac Cardiac: RRR, No murmur - Respiratory Respiratory: No respiratory distress, Clear bilaterally - Abdomen Abdomen: Normal bowel sounds, Soft, Non tender, Non distended - Neuro Neuro: Alert and oriented X 3 Eye Opening: Spontaneous Motor: Obeys Commands Verbal: Oriented GCS Score: 15 - Psych Psych: Normal mood, Normal affect Results - Vitals Vitals: Vital Signs - 24 hr 06/28/23 13:19 Temperature 36.9 C Heart Rate 84 Respiratory 15 Rate Blood Pressure 151/99 H O2 Saturation 97 Oxygen O2 Source Room air - Labs Labs: Laboratory Tests 06/28/23 06/28/23 06/28/23 13:27 13:27 14:14 WBC 6.8 RBC 4.10 L Hgb 12.5 Hct 38.7 MCV 94.4 MCH 30.5 MCHC 32.3 RDW 12.4 Plt Count 371 MPV 9.3 Neut # (Auto) 3.5 Lymph # (Auto) 2.4 Frio # (Auto) 0.6 Eos # (Auto) 0.2 Baso # (Auto) 0.0 Absolute Nucleated RBC 0.00 Nucleated RBC % 0.0 Sodium 139 Potassium 3.9 Chloride 106 Carbon Dioxide 28 Anion Gap 5.0 L BUN 14 Creatinine 0.8 Estimated GFR (MDRD) 85 L Glucose 75 Calcium 9.6 Magnesium 1.8 Total Bilirubin 0.3 AST 15 ALT 15 Alkaline Phosphatase 88 Total Creatine Kinase 136 Total Protein 7.6 Albumin 4.5 Globulin 3.1 Albumin/Globulin Ratio 1.5 Lipase 23 TSH 0.79 Urine HCG, Qual NEGATIVE Salicylates < 1.5 Acetaminophen < 0.1 Ethyl Alcohol < 10.0 PD Medical Decision Making - ED course Complexity details: reviewed results, re-evaluated patient, considered differential, d/w patient, d/w budget consultant ED course: 28-year-old female presents with Depressive thoughts and suicidal ideation. She is not actively suicidal at this time but has had thoughts about it in the past. She mainly is inquiring about resources and would like to expedite the process of getting into see someone today.We did obtain labs for medical clearance and labs are stable, no signs of infection or electrolyte disturbances, your drug screen is negative. She is very pleasant and cooperative here and very willing to converse. She met with the perinatal social worker who gave her resources for mental health care locally and patient does not require detainment or inpatient mental health treatment at this time. I do think she is safe for discharge home, but have reviewed return precautions in detail with the patient if she felt like she was going to harm herself or others. The patient states understanding is discharged home in stable condition. Departure - Departure Disposition: 01 Home, Self Care Clinical Impression: Depression Qualifiers: Depression Type: depression Qualified Code(s): F53.0 - depression Condition: Good Instructions: ED Depression Comments: Please follow-up with your primary doctor and utilize the resources that we discussed. At this time you are cleared for discharge home but if at any point time you feel like you might hurt yourself or hurt others, please return to the ER or call crisis resources. Forms: PCP List
[2023-06-28 13:32] LABS: BASOPHILS % (AUTO) 0.6 %; EOSINOPHILS # (AUTO) 0.2 10^3/uL (0.0-0.7); EOSINOPHILS % (AUTO) 2.8 %; HCT - HEMATOCRIT 38.7 % (37.0-47.0); HGB - HEMOGLOBIN 12.5 g/dL (12.0-16.0); LYMPHOCYTES # (AUTO) 2.4 10^3/uL (1.5-3.5); MEAN CORPUSCULAR HEMOGLOBIN 30.5 pg (27.0-31.0); MEAN CORPUSCULAR HGB CONC 32.3 g/dL (32.0-36.0); MEAN CORPUSCULAR VOLUME 94.4 fL (81.0-99.0); MEAN PLATELET VOLUME 9.3 fL (7.9-10.8); MONOCYTES # (AUTO) 0.6 10^3/uL (0.0-1.0); MONOCYTES % (AUTO) 8.8 %; NEUTROPHILS # (AUTO) 3.5 10^3/uL (1.5-6.6); NEUTROPHILS % (AUTO) 51.7 %; PLT - PLATELET COUNT 371 10^3/uL (130-450); RED CELL DISTRIBUTION WIDTH 12.4 % (12.0-15.0); WHITE BLOOD COUNT 6.8 x10^3/uL (4.8-10.8)
[2023-06-28 13:50] LABS: ALBUMIN 4.5 g/dL (3.2-5.5); ALBUMIN/GLOBULIN RATIO 1.5 (1.0-2.2); ALKALINE PHOSPHATASE 88 IU/L (42-121); ALT ALANINE AMINOTRANSFERASE 15 IU/L (10-60); AST ASPARTATE AMINOTRANSFERASE 15 IU/L (10-42); BILIRUBIN,TOTAL 0.3 mg/dL (0.2-1.0); BUN - BLOOD UREA NITROGEN 14 mg/dL (6-20); CALCIUM 9.6 mg/dL (8.5-10.3); CARBON DIOXIDE - CO2 28 mmol/L (21-32); CHLORIDE 106 mmol/L (101-111); CK- CREATINE KINASE 136 IU/L (30-223); CREATININE 0.8 mg/dL (0.6-1.3); ETOH - ETHANOL < 10.0 mg/dL; GFR - MDRD 85 (>89); GLUCOSE 75 mg/dL (74-104); LIPASE 23 U/L (11-82); MAGNESIUM 1.8 mg/dL (1.7-2.3); POTASSIUM 3.9 mmol/L (3.5-4.5); SODIUM 139 mmol/L (135-145); TOTAL PROTEIN 7.6 g/dL (6.4-8.9)
[2023-06-28 14:05] LABS: THYROID STIMULATING HORMONE 0.79 uIU/mL (0.34-5.60)
[2023-06-28 14:19] LABS: SALICYLATE < 1.5 mg/dL
[2023-06-28 14:20] LABS: ACETAMINOPHEN < 0.1 ug/mL
[2023-06-28 14:41] LABS: MUDS CUTOFF CONCENTRATIONS CUTOFF CONC BELOW:
[2023-06-28 14:57] LABS: BILIRUBIN,URINE NEGATIVE (NEGATIVE); GLUCOSE, URINE (UA) NEGATIVE (NEGATIVE); KETONES,URINE (UA) NEGATIVE (NEGATIVE); LEUKOCYTE ESTERASE, URINE NEGATIVE (NEGATIVE); NITRITE,URINE POSITIVE (NEGATIVE); OCCULT BLOOD,URINE NEGATIVE (NEGATIVE); PH,URINE 5.5 PH (5.0-7.5); PROTEIN,URINE NEGATIVE (NEGATIVE); UROBILINOGEN,URINE 0.2 (NORMAL) E.U./dL (NORMAL)
[2023-06-28 14:58] LABS: HCG UR QUAL NEGATIVE
[2023-06-28 15:14] LABS: BACTERIA,URINE Many /HPF (None Seen); CLARITY,URINE HAZY (CLEAR); RBC,URINE None Seen /HPF (0-5); SQUAMOUS EPITHELIAL CELL,UR RARE Squamous (<= Few); WBC,URINE 0-3 /HPF (0-5)
[2023-06-28 15:15] LABS: AMPHETAMINE SCREEN,URINE NEGATIVE (NEGATIVE); BARBITURATE SCREEN,UR NEGATIVE (NEGATIVE); BENZODIAZEPINES SCREEN, URINE NEGATIVE (NEGATIVE); COCAINE SCREEN URINE NEGATIVE (NEGATIVE); METHADONE SCREEN, URINE NEGATIVE (NEGATIVE); METHAMPHETAMINES SCREEN, URINE NEGATIVE (NEGATIVE); OPIATE SCREEN, URINE NEGATIVE (NEGATIVE); OXYCODONE SCREEN, URINE NEGATIVE (NEGATIVE); PROPOXYPHENE SCREEN, URINE NEGATIVE (NEGATIVE); THC CANNABINOID SCREEN, URINE POSITIVE (NEGATIVE); TRICYCLIC ANTIDEPRESSANT,URINE NEGATIVE (NEGATIVE)
[2023-06-28 15:28] VITALS: BP 148/88; O2SAT 99
--- NOTE | 2023-06-30 13:44 | ED Physician Documentation ---
ED Addendum - Addendum Addendum: 06/30/23 13:43 Urine culture reviewed. She had nitrite and bacteriuria but no white cells in her urine. No leukocytosis. She was here for unrelated complaints and no signs or symptoms of UTI were documented so presume this represents asymptomatic bacteriuria.
== END 2023-06-28 15:19 | disposition home or self-care (01) ==
LOC: ED 13:07
DX: O99.345 Other mental disorders complicating the puerperium (principal); F53.0 Postpartum depression; R82.71 Bacteriuria
CPT/HCPCS: 36415; 80053; 80306; 80307; 80320; 80329; 81001; 81003; 81025; 82550; 83690; 83735; 84443; 85025; 87086; 87181; 99282; 99283

== ENCOUNTER 2023-07-22 13:17 | Outpatient (CLI) | payer OTHER, MEDICAID ==
[2023-07-22 13:30] LABS: HCT - HEMATOCRIT 39.3 % (37.0-47.0); HGB - HEMOGLOBIN 12.6 g/dL (12.0-16.0); MEAN CORPUSCULAR HGB CONC 32.1 g/dL (32.0-36.0); MEAN CORPUSCULAR VOLUME 93.6 fL (81.0-99.0); MEAN PLATELET VOLUME 9.9 fL (7.9-10.8); RED BLOOD COUNT 4.2 10^6/uL (4.20-5.40); RED CELL DISTRIBUTION WIDTH 12.5 % (12.0-15.0); WHITE BLOOD COUNT 7.8 x10^3/uL (4.8-10.8)
[2023-07-22 13:44] LABS: ALBUMIN 4.3 g/dL (3.2-5.5); ALBUMIN/GLOBULIN RATIO 1.3 (1.0-2.2); BILIRUBIN,TOTAL 0.3 mg/dL (0.2-1.0); CALCIUM 9.5 mg/dL (8.5-10.3); CREATININE 0.8 mg/dL (0.6-1.3); POTASSIUM 4.2 mmol/L (3.5-4.5); TOTAL PROTEIN 7.7 g/dL (6.4-8.9)
[2023-07-22 14:19] LABS: CREATININE,URINE 153.8 mg/dL; PROTEIN/CREATININE RATIO,URINE 0.1 (<=0.2)
== END 2023-07-22 13:18 | disposition home or self-care (01) ==
LOC: LAB 13:17
PROVIDERS: ATTEND Nurse Practitioner
DX: O16.9 Unspecified maternal hypertension, unspecified trimester (principal)
CPT/HCPCS: 36415; 80053; 82570; 84156; 84702; 85027

== ENCOUNTER 2023-07-23 08:00 | Outpatient (CLI) | payer OTHER, MEDICAID ==
[2023-07-23 10:49] LABS: BILIRUBIN,URINE NEGATIVE (NEGATIVE); GLUCOSE, URINE (UA) NEGATIVE (NEGATIVE); KETONES,URINE (UA) NEGATIVE (NEGATIVE); LEUKOCYTE ESTERASE, URINE NEGATIVE (NEGATIVE); NITRITE,URINE POSITIVE (NEGATIVE); OCCULT BLOOD,URINE SMALL (NEGATIVE); PH,URINE 5.5 PH (5.0-7.5); PROTEIN,URINE NEGATIVE (NEGATIVE); UROBILINOGEN,URINE 0.2 (NORMAL) E.U./dL (NORMAL)
[2023-07-23 11:15] LABS: CLARITY,URINE CLOUDY (CLEAR)
[2023-07-23 11:16] LABS: RBC,URINE None Seen /HPF (0-5)
[2023-07-23 11:17] LABS: AMORPHOUS SEDIMENT,UR Few /LPF; BACTERIA,URINE Many /HPF (None Seen); SQUAMOUS EPITHELIAL CELL,UR FEW Squamous (<= Few)
== END 2023-07-23 23:59 | disposition home or self-care (01) ==
LOC: LAB.WC 08:00
PROVIDERS: ATTEND Nurse Practitioner
DX: R35.0 Frequency of micturition (principal)
CPT/HCPCS: 81001; 87086; 87181

== ENCOUNTER 2023-07-24 12:25 | Outpatient (CLI) | payer OTHER, MEDICAID | END 2023-07-24 12:26 | disposition home or self-care (01) | LOC: LAB 12:25 | PROVIDERS: ATTEND Nurse Practitioner | DX: Z32.01 Encounter for pregnancy test, result positive (principal) | CPT/HCPCS: 36415; 84702 ==

== ENCOUNTER 2023-07-27 08:46 | Outpatient (CLI) | payer OTHER, MEDICAID | END 2023-07-27 08:47 | disposition home or self-care (01) | LOC: LAB 08:46 | PROVIDERS: ATTEND Nurse Practitioner | DX: Z32.01 Encounter for pregnancy test, result positive (principal) | CPT/HCPCS: 36415; 84702 ==

== ENCOUNTER 2023-07-29 09:08 | Outpatient (CLI) | payer OTHER, MEDICAID | END 2023-07-29 09:09 | disposition home or self-care (01) | LOC: LAB 09:08 | PROVIDERS: ATTEND Nurse Practitioner | DX: Z32.01 Encounter for pregnancy test, result positive (principal) | CPT/HCPCS: 36415; 84702 ==

== ENCOUNTER 2023-09-25 13:08 | Outpatient (CLI) | payer OTHER, MEDICAID ==
--- NOTE | 2023-09-26 20:24 | Ultrasound Report ---
PROCEDURE: Pelvic w/Transvaginal INDICATIONS: VAGINAL DISCHARGE TECHNIQUE: Real-time scanning was performed of the pelvic organs, with image documentation. Additional endovagi nal scanning was necessary due to incomplete visualization of the adnexal and endometrial structures by transabdominal scanning. COMPARISON: None. FINDINGS: Uterus: Uterus is anteverted and normal in size at 8.6 x 5.0 x 5.6 cm. The myometrium is heterogene ous. The endometrium measures 14 mm in combined thickness. There is questionable vascularity within the endometrium. This is best visualized on the transabdominal view. Ovaries: The right ovary measures 3.2 x 2.1 x 2.3 cm, with a calculated ovarian volume of 8.1 cc. T he left ovary measures 3.3 x 3.6 x 2.3 cm, with a calculated ovarian volume of 14.2 cc. The ovaries have a normal sonographic appearance. Less than 12 follicles can be seen in each ovary. No adnexal masses are seen. There is a left corpus luteal cyst which measures 1.9 x 2.1 x 1.9 cm. There is a 1.7 cm left paraovarian cyst. Other: No pathologic free abdominal or pelvic fluid. IMPRESSION: Endometrial complex measures 14 mm in diameter with questionable internal vascularity seen best by tr ansabdominal view. Findings may be associated with retained products of conception. Reviewed by: Stefani Garcia MD on 09/26/2023 8:23 PM PST Approved by: Stefani Garcia MD on 09/26/2023 8:23 PM PST Station ID: [id number]
== END 2023-09-25 13:09 | disposition home or self-care (01) ==
LOC: DI 13:08
PROVIDERS: ATTEND Nurse Practitioner
DX: N89.8 Other specified noninflammatory disorders of vagina (principal)

== ENCOUNTER 2023-09-28 14:29 | Outpatient (CLI) | payer OTHER, MEDICAID ==
[2023-09-28 20:18] LABS: BACTERIAL VAGINOSIS DNA NEGATIVE (NEGATIVE); CANDIDA GLABRATA DNA NEGATIVE (NEGATIVE); CANDIDA GROUP DNA NEGATIVE (NEGATIVE); CANDIDA KRUSEI DNA NEGATIVE (NEGATIVE)
[2023-09-28 20:23] LABS: CHLAMYDIA TRACHOMATIS DNA NEGATIVE (NEGATIVE); NEISSERIA GONORRHOEAE DNA NEGATIVE (NEGATIVE)
[2023-09-28 20:25] LABS: TRICHOMONAS VAGINALIS DNA NEGATIVE (NEGATIVE)
== END 2023-09-28 14:30 | disposition home or self-care (01) ==
LOC: LAB 14:29
PROVIDERS: ATTEND Nurse Practitioner
DX: N89.8 Other specified noninflammatory disorders of vagina (principal); Z32.01 Encounter for pregnancy test, result positive
CPT/HCPCS: 36415; 81514; 81599; 84702; 87491; 87591; 87661

== ENCOUNTER 2023-09-30 11:49 | Outpatient (CLI) | payer OTHER, MEDICAID | END 2023-09-30 11:50 | disposition home or self-care (01) | LOC: LAB 11:49 | PROVIDERS: ATTEND Nurse Practitioner | DX: N89.8 Other specified noninflammatory disorders of vagina (principal) | CPT/HCPCS: 36415; 84702 ==

== ENCOUNTER 2023-10-18 08:00 | Outpatient (CLI) | payer OTHER, MEDICAID ==
[2023-10-19 16:33] LABS: BILIRUBIN,URINE NEGATIVE (NEGATIVE); GLUCOSE, URINE (UA) NEGATIVE (NEGATIVE); KETONES,URINE (UA) NEGATIVE (NEGATIVE); LEUKOCYTE ESTERASE, URINE NEGATIVE (NEGATIVE); NITRITE,URINE NEGATIVE (NEGATIVE); OCCULT BLOOD,URINE NEGATIVE (NEGATIVE); PROTEIN,URINE NEGATIVE (NEGATIVE); UROBILINOGEN,URINE 0.2 (NORMAL) E.U./dL (NORMAL)
[2023-10-19 16:38] LABS: CLARITY,URINE CLEAR (CLEAR)
[2023-10-19 17:02] LABS: BACTERIA,URINE None Seen /HPF (None Seen); RBC,URINE 0-5 /HPF (0-5); SQUAMOUS EPITHELIAL CELL,UR RARE Squamous (<= Few); WBC,URINE 0-3 /HPF (0-5)
== END 2023-10-18 23:59 | disposition home or self-care (01) ==
LOC: LAB.WC 08:00
PROVIDERS: ATTEND Nurse Practitioner
DX: Z34.80 Encounter for supervision of other normal pregnancy, unspecified trimester (principal)
CPT/HCPCS: 81001; 87086

== ENCOUNTER 2023-11-02 12:43 | Outpatient (CLI) | payer OTHER, MEDICAID ==
--- NOTE | 2023-11-02 16:17 | Ultrasound Report ---
PROCEDURE: OB 1st Trimester INDICATIONS: POSITIVE TEST OUTSIDE/PRIOR DATING DATA: Last menstrual period (LMP): 08/11/2023. LMP-based estimated date of delivery (ELVI): 06/06/2024. First dating scan (date and location): 11/02/2023 at . Estimated date of delivery (ELVI) from first dating scan: 06/03/2024. TECHNIQUE: Real-time scanning was performed of the fetus and maternal pelvic organs, with image documentation. COMPARISON: None. FINDINGS: Intrauterine gestational sac present. Embryo: There is a single living IUP. The estimated gestational age is 9 weeks 3 days based on crown -rump length 2.68 cm. Heart rate: 173 bpm. Other: No perigestational fluid collection. Cervix is closed. Measurement variability in dating: +/- 4 weeks by LMP, +/- 7 days by mean sac diameter (use before 6 weeks gestation if crown-rump length not able to be measured), +/- 5 days by crown-rump length (6-12 weeks gestation). Maternal organs: Ovaries appear within normal limits. There is a corpus luteal cyst in the left ovar y measuring 1.4 cm. In addition, there is a 1.6 cm paraovarian cyst in the left ovary. IMPRESSION: 1. A single living IUP is present with the estimated gestational age 9 weeks 3 days based on the [facility] ultrasound. Ultrasound dating concordant with clinical dating. 2. A corpus luteal cyst and a small paraovarian cyst in the left ovary. Reviewed by: Kentrell Voss MD on 11/02/2023 4:15 PM PDT Approved by: Kentrell Voss MD on 11/02/2023 4:15 PM PDT Station ID: [id number]
== END 2023-11-02 12:44 | disposition home or self-care (01) ==
LOC: DI 12:43
PROVIDERS: ATTEND Nurse Practitioner
DX: O34.81 Maternal care for other abnormalities of pelvic organs, first trimester (principal); N83.12 Corpus luteum cyst of left ovary; N83.202 Unspecified ovarian cyst, left side; Z3A.09 9 weeks gestation of pregnancy

== ENCOUNTER 2023-11-17 08:00 | Outpatient (CLI) | payer OTHER, MEDICAID ==
[2023-11-17 23:16] LABS: CHLAMYDIA TRACHOMATIS DNA NEGATIVE (NEGATIVE); NEISSERIA GONORRHOEAE DNA NEGATIVE (NEGATIVE); TRICHOMONAS VAGINALIS DNA NEGATIVE (NEGATIVE)
== END 2023-11-17 23:59 | disposition home or self-care (01) ==
LOC: LAB.WC 08:00
PROVIDERS: ATTEND Nurse Practitioner
DX: Z11.3 Encounter for screening for infections with a predominantly sexual mode of transmission (principal)
CPT/HCPCS: 87491; 87591; 87661

== ENCOUNTER 2024-01-23 16:07 | Outpatient (CLI) | payer OTHER, MEDICAID ==
[2024-01-23 16:23] VITALS: BP 132/90
--- NOTE | 2024-01-23 17:50 | PROVIDER PROGRESS NOTE ---
<Dana Yoon - Last Filed: 01/23/24 17:50> - HPI Chief Complaint: Pain, non-labor Current : Vital Signs Temperature 37.0 C 01/23/24 16:20 Heart Rate 81 01/23/24 16:20 Respiratory Rate 16 01/23/24 16:20 Blood Pressure 132/90 H 01/23/24 16:20 Temperature 37.0 C 01/23/24 16:20 Heart Rate 81 01/23/24 16:20 Respiratory Rate 16 01/23/24 16:20 Blood Pressure 132/90 H 01/23/24 16:20 O2 Saturation If not protocol: Oxygen Flow, liters/minute - Procedures Service Date of procedure: 01/23/24 - Plan Plan: 28 yo presents to clinic at 20+5 weeks gestation after falling on her buttock yesterday. Some mild cramping today. Describes pain as "cramping after webber catheter removed." No pain with urination or urinary frequency. Pain to tailbone and lower buttock, constant at the site of her fall. Tender to palpation. No bleeding or leaking. Feels that baby has been less active, although understands activity is variable at this gestational age. No notable uterine activity identified by toco and soft uterine resting tone. Patient comforted by reassuring FHT 135, and no identifiable contractions. Reviewed labor precautions as well as bleeding precautions (RH negative). Will collect urine for UA/culture if indicated. Will follow-up if antibiotic treatment indicated. Follow-up in clinic as previously scheduled. <Man Belle - Last Filed: 01/24/24 07:31> - HPI Current : Vital Signs Temperature 98.6 F 01/23/24 16:20 Heart Rate 81 01/23/24 16:20 Respiratory Rate 16 01/23/24 16:20 Blood Pressure 132/90 H 01/23/24 16:20 Temperature 98.6 F 01/23/24 16:20 Heart Rate 81 01/23/24 16:20 Respiratory Rate 16 01/23/24 16:20 Blood Pressure 132/90 H 01/23/24 16:20 O2 Saturation If not protocol: Oxygen Flow, liters/minute - Procedures NST Procedure: NST Procedure Start Time 16:08 Stop Time 16:39 - Plan Plan: Patient was seen and examined with SUSAN Nunez, student nurse system auditor. I agree with documentation and plan. Man Belle MD
[2024-01-23 18:00] LABS: BILIRUBIN,URINE NEGATIVE (NEGATIVE); CLARITY,URINE CLEAR (CLEAR); GLUCOSE, URINE (UA) NEGATIVE (NEGATIVE); KETONES,URINE (UA) NEGATIVE (NEGATIVE); LEUKOCYTE ESTERASE, URINE NEGATIVE (NEGATIVE); NITRITE,URINE NEGATIVE (NEGATIVE); OCCULT BLOOD,URINE TRACE-INTA (NEGATIVE); PH,URINE 6.5 PH (5.0-7.5); PROTEIN,URINE NEGATIVE (NEGATIVE); UROBILINOGEN,URINE 0.2 (NORMAL) E.U./dL (NORMAL)
== END 2024-01-23 17:53 | disposition home or self-care (01) ==
LOC: WFO 16:07 → FBP 16:09 → WFO 17:53
PROVIDERS: ATTEND Obstetrics & Gynecology
DX: O99.891 Other specified diseases and conditions complicating pregnancy (principal); M53.3 Sacrococcygeal disorders, not elsewhere classified; Z3A.20 20 weeks gestation of pregnancy; W10.8XXA Fall (on) (from) other stairs and steps, initial encounter; Y92.003 Bedroom of unspecified non-institutional (private) residence as the place of occurrence of the external cause
CPT/HCPCS: 81001; 81003; 87086; 99214

== ENCOUNTER 2024-02-14 12:25 | Outpatient (CLI) | payer OTHER, MEDICAID ==
--- NOTE | 2024-02-14 12:54 | PROVIDER PROGRESS NOTE ---
- HPI Chief Complaint: Hypertension/PIH Current : Vital Signs Temperature 98.2 F 02/14/24 12:40 Heart Rate 94 02/14/24 12:40 Respiratory Rate 18 02/14/24 12:40 Blood Pressure 129/80 02/14/24 12:40 Temperature 98.2 F 02/14/24 12:40 Heart Rate 94 02/14/24 12:40 Respiratory Rate 18 02/14/24 12:40 Blood Pressure 129/80 02/14/24 12:40 O2 Saturation If not protocol: Oxygen Flow, liters/minute - Plan Plan: Patient is a patient is a 28-year-old G8, P5 at 23 weeks 6 days gestation with chronic hypertension with history of preeclampsia here for headache and blurred vision for several days. She has been using a small amount of Tylenol, approximate 500 mg 1-2 times a day. Does have a 7/10 headache at maximum. Does feel baby move. No leaking, bleeding, contractions. No right upper quadrant pain Past medical history History of preeclampsia with 28-week delivery. Physical Exam Constitutional: Appears very comfortable. Alert, oriented, no acute distress Cardiovascular: Regular rate and rhythm. Respiratory: no respiratory distress. Abdomen: nondistended, nontender, no guarding. Psych: affect and mood appropriate, normal interaction, good eye contact. FHT: 140 bpm. Appropriate for gestational age [place]: Quiescent Labs: Platelet: 233, AST/ALT 12/, creatinine 0.6, protein/creatinine ratio: 0.1 Assessment and plan Headache -Patient received 1 g Tylenol and felt mildly better. Discussed Tylenol dosing at home if needed. -Encouraged to stay hydrated as you are having quite a bit of heat. Does have a portable air conditioner, but not large enough for a house and sits around with her family. Should remain hydrated and cool. -Labs not concerning for preeclampsia. Should follow-up for outpatient care -Discussed signs of preeclampsia with severe features. Patient is well aware and is worried about severe preeclampsia began. Chronic hypertension -Blood pressure good control with nifedipine 30 mg
[2024-02-14 12:56] VITALS: BP 129/80
[2024-02-14 12:56] LABS: BASOPHILS % (AUTO) 0.3 %; EOSINOPHILS # (AUTO) 0.1 10^3/uL (0.0-0.7); EOSINOPHILS % (AUTO) 1.2 %; HCT - HEMATOCRIT 35.2 % (37.0-47.0); HGB - HEMOGLOBIN 11.3 g/dL (12.0-16.0); LYMPHOCYTES # (AUTO) 1.8 10^3/uL (1.5-3.5); LYMPHOCYTES % (AUTO) 18.7 %; MEAN CORPUSCULAR HEMOGLOBIN 30.5 pg (27.0-31.0); MEAN CORPUSCULAR HGB CONC 32.1 g/dL (32.0-36.0); MEAN CORPUSCULAR VOLUME 95.1 fL (81.0-99.0); MEAN PLATELET VOLUME 10.4 fL (7.9-10.8); MONOCYTES # (AUTO) 0.6 10^3/uL (0.0-1.0); MONOCYTES % (AUTO) 6.4 %; NEUTROPHILS # (AUTO) 7.2 10^3/uL (1.5-6.6); NEUTROPHILS % (AUTO) 73.1 %; PLT - PLATELET COUNT 233 10^3/uL (130-450); RED CELL DISTRIBUTION WIDTH 12.7 % (12.0-15.0); WHITE BLOOD COUNT 9.8 x10^3/uL (4.8-10.8)
[2024-02-14] MEDS: ACETAMINOPHEN 500 MG TABLET PO PRN (13:08)
[2024-02-14 13:12] LABS: ALBUMIN 3.4 g/dL (3.2-5.5); ALBUMIN/GLOBULIN RATIO 1.1 (1.0-2.2); BILIRUBIN,TOTAL 0.2 mg/dL (0.2-1.0); CALCIUM 8.9 mg/dL (8.5-10.3); CREATININE 0.6 mg/dL (0.6-1.3); POTASSIUM 3.8 mmol/L (3.5-4.5); TOTAL PROTEIN 6.5 g/dL (6.4-8.9)
[2024-02-14 13:29] LABS: CREATININE,URINE 168.2 mg/dL; PROTEIN/CREATININE RATIO,URINE 0.1 (<=0.2)
== END 2024-02-14 13:45 | disposition home or self-care (01) ==
LOC: WFO 12:25 → FBP 13:05 → WFO 13:45
PROVIDERS: ATTEND Obstetrics & Gynecology
DX: O13.2 Gestational [pregnancy-induced] hypertension without significant proteinuria, second trimester (principal); O99.891 Other specified diseases and conditions complicating pregnancy; R51.9 Headache, unspecified; Z3A.23 23 weeks gestation of pregnancy
CPT/HCPCS: 36415; 80053; 82570; 84156; 85025; 99213; A9270; 99214

== ENCOUNTER 2024-02-21 09:50 | Outpatient (CLI) | payer OTHER, MEDICAID ==
--- NOTE | 2024-02-22 08:20 | Ultrasound Report ---
PROCEDURE: OB Anatomy Scan INDICATIONS: SUPERVISION OF OUTSIDE/PRIOR DATING DATA: Last menstrual period (LMP): 08/31/2023. LMP-based estimated date of delivery (ELVI): 06/06/2024. First dating scan (date and location): 11/02/2023. Estimated date of delivery (ELVI) from first dating scan: 06/03/2024. The below data below was generated using the clinical ELVI of 06/06/2024 TECHNIQUE: Real-time scanning was performed of the fetus, with image documentation and biometric measurements. Endovaginal scanning: Not performed. COMPARISON: OB ultrasound 11/02/2023 FINDINGS: General: A single living intrauterine gestation is present. Presentation: Vertex Placenta: Placental position is anterior, without previa. Amniotic fluid index: 14.7 cm, within normal limits for gestational age. heart rate: 137 beats per minute. Maternal cervical canal: 4.6 cm long; normal length is 2.5 cm or more. biometrics: Biparietal diameter: 6.6 cm, 26 weeks 4 days, 91st percentile Head circumference: 24.0 cm, 26 weeks 1 day, 74th percentile Abdominal circumference: 20.3 cm, 24 weeks 6 days, 41st percentile Femur length: 4.7 cm, 25 weeks 5 days, 64th percentile Estimated gestational age from initial scan: 24 weeks 6 days Composite gestational age from present scan: 25 weeks 6 days Estimated weight and percentile: 802 g, 64th percentile Measurement variability in biometric dating: +/- 10 days from 12-20 weeks gestation, +/- 2 weeks from 20-30 weeks gestation, +/- 3 weeks at 30 weeks gestation or later. Anatomic survey: Neuro: Ventricles are normal at less than 10 mm. Cisterna magna is normal at 3-11 mm. Cerebellum i s normal in size and morphology. Nuchal skin fold: Not evaluated due to gestational age. Face: Nose and lips, facial profile are normal. Spine: No evidence for spina bifida. Heart: 4-chambered heart is present, with normal ventricular outflow tracts. Diaphragm: Diaphragm is intact. Stomach: Left-sided stomach is present. Kidneys: No hydronephrosis. Normal is less than 5 mm in 2nd trimester, less than 7 mm in 3rd trimester. Cord: 3 vessel cord has orthotopic insertion. Bladder: Normal in size. Extremities: All 4 extremities are visualized. IMPRESSION: 1.Single live intrauterine with appropriate interval growth. 2. anatomic survey is within normal limits. Reviewed by: Terry Vivar MD on 02/22/2024 8:18 AM PDT Approved by: Terry Vivar MD on 02/22/2024 8:18 AM PDT Station ID: [id number]
== END 2024-02-21 09:51 | disposition home or self-care (01) ==
LOC: DI 09:50
PROVIDERS: ATTEND Nurse Practitioner
DX: Z34.82 Encounter for supervision of other normal pregnancy, second trimester (principal)

== ENCOUNTER 2024-03-23 08:00 | Outpatient (CLI) | payer OTHER, MEDICAID ==
[2024-03-23 15:59] LABS: HCT - HEMATOCRIT 34.3 % (37.0-47.0); HGB - HEMOGLOBIN 10.9 g/dL (12.0-16.0); MEAN CORPUSCULAR HEMOGLOBIN 29.7 pg (27.0-31.0); MEAN CORPUSCULAR HGB CONC 31.8 g/dL (32.0-36.0); MEAN CORPUSCULAR VOLUME 93.5 fL (81.0-99.0); MEAN PLATELET VOLUME 11.1 fL (7.9-10.8); RED BLOOD COUNT 3.67 10^6/uL (4.20-5.40); RED CELL DISTRIBUTION WIDTH 13.2 % (12.0-15.0); WHITE BLOOD COUNT 11.5 x10^3/uL (4.8-10.8)
[2024-03-23 16:09] LABS: CREATININE,URINE 120.7 mg/dL; PROTEIN/CREATININE RATIO,URINE 0.1 (<=0.2)
[2024-03-23 16:18] LABS: ALBUMIN 3.4 g/dL (3.2-5.5); ALBUMIN/GLOBULIN RATIO 0.9 (1.0-2.2); BILIRUBIN,TOTAL 0.3 mg/dL (0.2-1.0); CALCIUM 8.5 mg/dL (8.5-10.3); CREATININE 0.6 mg/dL (0.6-1.3); POTASSIUM 3.6 mmol/L (3.5-4.5)
[2024-03-23 16:30] LABS: ESTIMATED AVERAGE GLUCOSE 88 mg/dL (70-100); HEMOGLOBIN A1c% 4.7 % (4.27-6.07)
[2024-03-23 16:32] LABS: FERRITIN 4.8 ng/mL (11.0-306.8)
[2024-03-24 05:13] LABS: RPR Non Reactive (Non Reactive)
== END 2024-03-23 23:59 | disposition home or self-care (01) ==
LOC: LAB.WC 08:00
PROVIDERS: ATTEND Nurse Practitioner
DX: O16.3 Unspecified maternal hypertension, third trimester (principal); O99.891 Other specified diseases and conditions complicating pregnancy; R60.0 Localized edema; O09.893 Supervision of other high risk pregnancies, third trimester
CPT/HCPCS: 36415; 80053; 82570; 82728; 83036; 84156; 85027; 86592; 86850

== ENCOUNTER 2024-04-03 14:56 | Outpatient (CLI) | payer OTHER, MEDICAID ==
[2024-04-03 15:20] VITALS: BP 110/62
[2024-04-03 16:11] LABS: BILIRUBIN,URINE NEGATIVE (NEGATIVE); GLUCOSE, URINE (UA) NEGATIVE (NEGATIVE); KETONES,URINE (UA) NEGATIVE (NEGATIVE); LEUKOCYTE ESTERASE, URINE NEGATIVE (NEGATIVE); NITRITE,URINE NEGATIVE (NEGATIVE); OCCULT BLOOD,URINE NEGATIVE (NEGATIVE); PH,URINE 6.5 PH (5.0-7.5); PROTEIN,URINE NEGATIVE (NEGATIVE); UROBILINOGEN,URINE 0.2 (NORMAL) E.U./dL (NORMAL)
[2024-04-03 16:18] LABS: BACTERIA,URINE None Seen /HPF (None Seen); CLARITY,URINE CLEAR (CLEAR); RBC,URINE None Seen /HPF (0-5); SQUAMOUS EPITHELIAL CELL,UR RARE Squamous (<= Few); WBC,URINE 0-3 /HPF (0-5)
--- NOTE | 2024-04-03 17:00 | PROVIDER PROGRESS NOTE ---
- HPI Chief Complaint: Labor Current : Current EDU 06/06/24 Gestation 30 Weeks and 6 Days 8 Para 5 presents with pelvic discomfort, feeling like she is walking with a bowling ball between her legs. Cramps into her back and sacral area. tried a belly band but did not help. no recent intercourse. going to the bathroom very frequently but does not feel like she has a UTI. no vaginal bleeding or unusual discharge. Not feeling like her water has broken. feels large. baby moving a lot but she feels that he is out of room. Vital Signs Temperature 99.0 F 04/03/24 15:04 Heart Rate 96 04/03/24 15:04 Respiratory Rate 16 04/03/24 15:04 Blood Pressure 110/62 04/03/24 15:04 - Exam appears comfortable. abdomen gravid, soft, not tender. vulva appears normal. vagina with no significant fluid. normal discharge. cervix is closed. does not feel labored. palpably vertex. extremities with no edema. - Procedures OB Procedure Performed: NST Diagnosis/Indication for NST: labor NST Procedure: NST Procedure Start Date 04/03/24 Start Time 15:07 Stop Time 15:40 Vibroacoustic Stimulation Used No Procedure Details: Reactive for of 30 weeks gestation or more. NST tracing contains at least two heart rate accelerations that are at least 15 beats per minute above the baseline rate and lasting at least 15 seconds from onset to return to baseline within a twenty minute period. no contractions noted. Findings: reactive NST. cervix closed. pending tests: UA, fibronectin, vaginitis swab. - Plan Plan: discharge home. f/u as needed. call any time. recommend she use belly band as likely it will help some.
[2024-04-03 18:48] LABS: BACTERIAL VAGINOSIS DNA NEGATIVE (NEGATIVE); CANDIDA GLABRATA DNA NEGATIVE (NEGATIVE); CANDIDA GROUP DNA NEGATIVE (NEGATIVE); CANDIDA KRUSEI DNA NEGATIVE (NEGATIVE); TRICHOMONAS VAGINALIS DNA NEGATIVE (NEGATIVE)
== END 2024-04-03 16:30 | disposition home or self-care (01) ==
LOC: WFO 14:56 → FBP 15:00 → WFO 16:30
PROVIDERS: ATTEND Obstetrics & Gynecology
DX: O99.891 Other specified diseases and conditions complicating pregnancy (principal); R10.2 Pelvic and perineal pain; M53.3 Sacrococcygeal disorders, not elsewhere classified; Z3A.30 30 weeks gestation of pregnancy
CPT/HCPCS: 59025; 81001; 81514; 82731; 87086; 99213

== ENCOUNTER 2024-04-06 08:00 | Outpatient (CLI) | payer OTHER, MEDICAID ==
[2024-04-06 15:27] LABS: BASOPHILS % (AUTO) 0.2 %; EOSINOPHILS # (AUTO) 0.1 10^3/uL (0.0-0.7); EOSINOPHILS % (AUTO) 1.1 %; HCT - HEMATOCRIT 34.9 % (37.0-47.0); HGB - HEMOGLOBIN 11.1 g/dL (12.0-16.0); LYMPHOCYTES # (AUTO) 1.8 10^3/uL (1.5-3.5); LYMPHOCYTES % (AUTO) 19.5 %; MEAN CORPUSCULAR HGB CONC 31.8 g/dL (32.0-36.0); MEAN CORPUSCULAR VOLUME 91.1 fL (81.0-99.0); MEAN PLATELET VOLUME 11.1 fL (7.9-10.8); MONOCYTES # (AUTO) 0.8 10^3/uL (0.0-1.0); MONOCYTES % (AUTO) 8.2 %; NEUTROPHILS # (AUTO) 6.5 10^3/uL (1.5-6.6); NEUTROPHILS % (AUTO) 70.5 %; PLT - PLATELET COUNT 242 10^3/uL (130-450); RED BLOOD COUNT 3.83 10^6/uL (4.20-5.40); RED CELL DISTRIBUTION WIDTH 13.4 % (12.0-15.0); WHITE BLOOD COUNT 9.2 x10^3/uL (4.8-10.8)
[2024-04-07 01:08] LABS: HBsAG SCREEN Negative (Negative)
[2024-04-07 03:11] LABS: HIV SCREEN 4TH GENERATION Non Reactive (Non Reactive)
[2024-04-07 06:10] LABS: RPR Non Reactive (Non Reactive)
[2024-04-07 07:11] LABS: VARICELLA-ZOSTER AB IGG 231 index (Immune >165)
[2024-04-09 05:09] LABS: HCV AB Non Reactive (Non Reactive)
== END 2024-04-06 23:59 | disposition home or self-care (01) ==
LOC: LAB.WC 08:00
PROVIDERS: ATTEND Nurse Practitioner
DX: Z34.80 Encounter for supervision of other normal pregnancy, unspecified trimester (principal); Z36.89 Encounter for other specified antenatal screening
CPT/HCPCS: 36415; 85025; 86592; 86762; 86787; 86803; 86850; 86900; 86901; 87340; 87389

== ENCOUNTER 2024-04-17 12:57 | Outpatient (CLI) | payer OTHER, MEDICAID ==
--- NOTE | 2024-04-18 08:58 | Ultrasound Report ---
PROCEDURE: OB Follow up INDICATIONS: SUPERVISION OF OUTSIDE/PRIOR DATING DATA: Last menstrual period (LMP): 08/31/2023. LMP-based estimated date of delivery (ELVI): 06/06/2024. First dating scan (date and location): 11/02/2023. Estimated date of delivery (ELVI) from first dating scan: 06/03/2024. The below data below was generated using the clinical ELVI of 06/06/2024 TECHNIQUE: Real-time scanning was performed of the fetus, with image documentation and biometric measurements. Endovaginal scanning: Not performed. COMPARISON: OB ultrasound 02/21/2024 FINDINGS: General: A single living intrauterine gestation is present. Presentation: Vertex Placenta: Placental position is anterior, without previa. Amniotic fluid index: 13.1 cm, within normal limits for gestational age. heart rate: 136 beats per minute. Maternal cervical canal: 5.9 cm long; normal length is 2.5 cm or more. biometrics: Biparietal diameter: 8.8 cm, 35 weeks 2 days, 96th percentile Head circumference: 31.4 cm, 35 weeks 2 days, 76th percentile Abdominal circumference: 28.9 cm, 32 weeks 6 days, 53rd percentile Femur length: 6.6 cm, 34 weeks 1 day, 72nd percentile Estimated gestational age from initial scan: 32 weeks 6 days Composite gestational age from present scan: 34 weeks 3 days Estimated weight and percentile: 2261 g, 68th percentile Measurement variability in biometric dating: +/- 10 days from 12-20 weeks gestation, +/- 2 weeks from 20-30 weeks gestation, +/- 3 weeks at 30 weeks gestation or more. Other: Not applicable. IMPRESSION: 1.Single live intrauterine . 2.Estimated weight is at the 68th percentile for gestational age. 3.Biparietal diameter is at the 96th percentile for gestational age. 4.Amniotic fluid index is normal at 13.1 cm. Reviewed by: Terry Vivar MD on 04/18/2024 7:57 AM FARSHAD Approved by: Terry Vivar MD on 04/18/2024 7:57 AM FARSHAD Station ID: [id number]
== END 2024-04-17 12:58 | disposition home or self-care (01) ==
LOC: DI 12:57
PROVIDERS: ATTEND Obstetrics & Gynecology
DX: O09.893 Supervision of other high risk pregnancies, third trimester (principal); Z3A.34 34 weeks gestation of pregnancy

== ENCOUNTER 2024-04-27 12:36 | Outpatient (CLI) | payer OTHER, MEDICAID ==
[2024-04-27 12:55] VITALS: BP 119/85; O2SAT 99
--- NOTE | 2024-04-27 15:25 | PROVIDER PROGRESS NOTE ---
- HPI Chief Complaint: Labor Current : Current EDU 06/06/24 Gestation 34 Weeks and 2 Days 8 Para 5 Vital Signs Heart Rate 100 04/27/24 12:48 Respiratory Rate 17 04/27/24 12:48 Blood Pressure 138/94 H 04/27/24 12:48 O2 Saturation 99 04/27/24 12:48 Temperature 98.4 F 04/27/24 12:52 Heart Rate 100 04/27/24 12:48 Respiratory Rate 17 04/27/24 12:48 Blood Pressure 119/85 H 04/27/24 12:52 O2 Saturation 99 04/27/24 12:48 If not protocol: Oxygen Flow, liters/minute - Procedures OB Procedure Performed: NST Diagnosis/Indication for NST: Pre- Hypertension NST Procedure: NST Procedure Start Date 04/27/24 Start Time 13:00 Stop Time 13:30 Vibroacoustic Stimulation Used No Service Date of procedure: 04/27/24 (Read 04/27/24) - Plan Plan: Patient is a 29-year-old G8, P5 at 34 weeks 2 days gestation. She presents today complaining of contractions. She has good movement, no vaginal bleeding, no contractions. She denies headache, right upper quadrant pain, changes in vision. Physical Exam Constitutional: alert, no acute distress, well hydrated, well developed, well nourished, appropriate dress. Cardiovascular: Regular rate and rhythm. Respiratory: no respiratory distress. Abdomen: nondistended, nontender, no guarding. Psych: affect and mood appropriate, normal interaction, good eye contact. FHT: 135 beats per baseline, moderate variability, accelerations present, no decelerations. Reactive NST. [place]: Quiescent SVE: 0/0/-3 Assessment and plan False labor. -No contractions felt since arrival. None seen on monitor. Offered patient reexamination, but she declined. -Patient examined and found not to be in labor. -Discharged in good condition to follow-up with routine care and labor precautions
== END 2024-04-27 14:01 | disposition home or self-care (01) ==
LOC: WFO 12:36 → FBP 12:38 → WFO 14:01
PROVIDERS: ATTEND Obstetrics & Gynecology
DX: O47.03 False labor before 37 completed weeks of gestation, third trimester (principal); O10.913 Unspecified pre-existing hypertension complicating pregnancy, third trimester; Z3A.34 34 weeks gestation of pregnancy
CPT/HCPCS: 59025; 99213; 99215

== ENCOUNTER 2024-05-02 11:50 | Outpatient (CLI) | payer OTHER, MEDICAID | END 2024-05-02 11:51 | disposition home or self-care (01) | LOC: LAB 11:50 | PROVIDERS: ATTEND Obstetrics & Gynecology | DX: O09.893 Supervision of other high risk pregnancies, third trimester (principal) | CPT/HCPCS: 36415; 82950 ==

== ENCOUNTER 2024-05-16 17:02 | Inpatient (IN) ==
[2024-05-16 17:56] LABS: BASOPHILS % (AUTO) 0.2 %; EOSINOPHILS # (AUTO) 0.1 10^3/uL (0.0-0.7); EOSINOPHILS % (AUTO) 0.7 %; HCT - HEMATOCRIT 34.6 % (37.0-47.0); HGB - HEMOGLOBIN 10.9 g/dL (12.0-16.0); LYMPHOCYTES # (AUTO) 1.8 10^3/uL (1.5-3.5); LYMPHOCYTES % (AUTO) 17.9 %; MEAN CORPUSCULAR HEMOGLOBIN 28.6 pg (27.0-31.0); MEAN CORPUSCULAR HGB CONC 31.5 g/dL (32.0-36.0); MEAN CORPUSCULAR VOLUME 90.8 fL (81.0-99.0); MEAN PLATELET VOLUME 11.1 fL (7.9-10.8); MONOCYTES # (AUTO) 0.7 10^3/uL (0.0-1.0); MONOCYTES % (AUTO) 7.5 %; NEUTROPHILS # (AUTO) 7.3 10^3/uL (1.5-6.6); NEUTROPHILS % (AUTO) 73.2 %; PLT - PLATELET COUNT 212 10^3/uL (130-450); RED BLOOD COUNT 3.81 10^6/uL (4.20-5.40); RED CELL DISTRIBUTION WIDTH 14.2 % (12.0-15.0); WHITE BLOOD COUNT 9.9 x10^3/uL (4.8-10.8)
[2024-05-16 18:12] LABS: ALBUMIN 3.5 g/dL (3.2-5.5); ALBUMIN/GLOBULIN RATIO 1.2 (1.0-2.2); BILIRUBIN,TOTAL 0.3 mg/dL (0.2-1.0); CALCIUM 9.2 mg/dL (8.5-10.3); CREATININE 0.8 mg/dL (0.6-1.3); POTASSIUM 3.4 mmol/L (3.5-4.5); TOTAL PROTEIN 6.4 g/dL (6.4-8.9); URIC ACID 6.5 mg/dL (2.3-6.6)
[2024-05-16] MEDS ORDERED: LABETALOL 20 MG/4 ML SYRINGE IVP PRN ×3 (18:12)
[2024-05-16] MEDS ORDERED: SODIUM CHLORIDE FLUSH 0.9% 10 ML SYRINGE IVP PRN (18:12)
[2024-05-16] MEDS ORDERED: TRANEXAMIC ACID IN NACL 1,000 MG/100 ML BAG IV PRN (18:12)
[2024-05-16] MEDS ORDERED: miSOPROStoL 200 MCG TABLET PR PRN (18:12)
[2024-05-16] MEDS ORDERED: miSOPROStoL 200 MCG TABLET BC PRN (18:12)
[2024-05-16] MEDS ORDERED: LACTATED RINGERS 1,000 ML IV PRN (18:12)
[2024-05-16] MEDS ORDERED: CARBOPROST TROMETHAMINE 250 MCG/ML VIAL IM PRN (18:12)
[2024-05-16] MEDS ORDERED: NIFEdipine 10 MG CAPSULE PO PRN (18:12)
[2024-05-16] MEDS ORDERED: CALCIUM CARBONATE CHEW 500 MG TABLET PO PRN (18:12)
[2024-05-16] MEDS ORDERED: METOCLOPRAMIDE 10 MG/2 ML VIAL IVP PRN (18:12)
[2024-05-16] MEDS ORDERED: hydrALAZINE INJ 20 MG/ML VIAL IVP PRN (18:12)
[2024-05-16] MEDS ORDERED: TERBUTALINE 1 MG/ML VIAL SUBQ PRN (18:12)
[2024-05-16] MEDS ORDERED: METHYLERGONOVINE 0.2 MG/ML VIAL IM PRN (18:12)
[2024-05-16] MEDS ORDERED: OXYTOCIN 10 UNIT/ML VIAL IM PRN (18:12)
--- NOTE | 2024-05-16 18:27 | HISTORY & PHYSICAL EXAMINATION ---
Admit History Visit Reason Visit Reason: Other (early labor, elevated bp in patient with chronic hypertension) Care: positive [facility] Risk/History: positive Pre-eclampsia (x 2) Complications This : positive induced HTN Smoking Status: Never smoker Mother's Labs Mother's Blood Type: positive A Mother's RH: positive Negative GBS: positive Group B Step Negative Rubella Status: positive Immune Other Maternal History Other Maternal History: patient NST Procedure NST Procedure: NST Procedure Start Time 13:00 Stop Time 13:30 Meds/Allgy Home Medications Ambulatory Orders Medication Instructions Recorded Confirmed vitamins no.119-iron 1 ea PO DAILY 11/15/22 06/28/23 fumarate 29 mg-folic acid 1 mg tablet ( 19) bupropion HCl 150 mg 24 hr tablet, 150 mg PO DAILY 06/28/23 06/28/23 extended release aspirin 81 mg tablet,delayed 81 mg PO 01/23/24 release nifedipine 30 mg tablet,extended 30 mg PO DAILY 01/23/24 01/23/24 release 24 hr Allergies Allergies Allergy/AdvReac Type Severity Reaction Status Date / Time Sulfa (Sulfonamide Allergy Hives Verified 06/28/23 13:26 Antibiotics) Plan for Labor Plan For Labor I expect patient to be DC'd or transferred within 96 hours.: [facility] History Medical History Family history of spina bifida sister Vaginal delivery History of pre-eclampsia x 2 Surgical History Surgical History (Updated 05/16/24 @ 19:04 by Elicia Jung MD) H/O knee surgery x 2 H/O wisdom tooth extraction Family History Family History (Updated 05/16/24 @ 19:17 by Elicia Jung MD) Mother Blood coagulation disorder with impaired clot retraction time Protein S deficiency Sister Spina bifida Family history of spina bifida Social History Social History Smoking Status: Never smoker Do you dip or chew tobacco?: No Patient requests smoking cessation consult: No Initiate information on smoking cessation: No Do you feel safe in your home environment?: Yes Suffered physical, verbal, emotional, or financial abuse?: No History of Abuse: No Are you sexually active?: Yes POLST Patient has POLST: No Conclusion/Plan Lab Results 05/16/24 17:51 05/16/24 17:51
[2024-05-16 18:52] LABS: CREATININE,URINE 76.7 mg/dL; PROTEIN/CREATININE RATIO,URINE 0.1 (<=0.2)
[2024-05-16] MEDS: NIFEdipine ER 30 MG TABLET PO ONE (19:02)
--- NOTE | 2024-05-16 19:08 | HISTORY & PHYSICAL EXAMINATION ---
Admit History Visit Reason Visit Reason: Contractions and Other (elevated bps.) : 8 Parity: 5 : 2 Care: positive [facility] Risk/History: positive Pre-eclampsia (x2) Complications This : positive induced HTN (on nifedipine) Smoking Status: Never smoker Mother's Labs Mother's Blood Type: positive A Mother's RH: positive Negative GBS: positive Group B Step Negative Rubella Status: positive Immune Other Maternal History Other Maternal History: 29 yo presents with contractions. then they resolved but once here, bps were in 150s over 100s. She feels ok, no significant headache, some nausea. no vomiting. no swellling at all. Baby moving well. has had preeclampsia x 2 and does not feel like she did then. Then headache progressing to nausea and RUQ discomfort. This feels different. No fluid leaking. last ultrasound was done 05/15. report reviewed: biometrics: Biparietal diameter: 9.5 cm 38 weeks 5 days 96 percentile Head circumference: 32.4 cm 36 weeks 4 days 18th percentile Abdominal circumference: 35.0 cm 39 weeks 0 days 97th percentile Femur length: 7.4 cm 30 weeks 1 day and 79th percentile Estimated gestational age from initial scan: 36 weeks 6 days Composite gestational age from present scan: 38 weeks 1 day Estimated weight and percentile: 3498 g 91st percentile HPI Diagnosis/Indication for NST: Gestational Hypertension NST Procedure NST Procedure: NST Procedure Start Time 13:00 Stop Time 13:30 Results and Plan Findings/Impression: reactive NST Plan: admit for labor induction due to elevated bps. Meds/Allgy Home Medications Ambulatory Orders Medication Instructions Recorded Confirmed vitamins no.119-iron 1 ea PO DAILY 11/15/22 06/28/23 fumarate 29 mg-folic acid 1 mg tablet ( 19) bupropion HCl 150 mg 24 hr tablet, 150 mg PO DAILY 06/28/23 06/28/23 extended release aspirin 81 mg tablet,delayed 81 mg PO 01/23/24 release nifedipine 30 mg tablet,extended 30 mg PO DAILY 01/23/24 01/23/24 release 24 hr Allergies Allergies Allergy/AdvReac Type Severity Reaction Status Date / Time Sulfa (Sulfonamide Allergy Hives Verified 06/28/23 13:26 Antibiotics) Physical Abdominal Exam Contraction Frequency (min/apart): very irregular Contraction Intensity: positive Mild Uterine Resting Tone: positive Soft Monitoring Heart Rate Baseline: 150 Strip Review: positive Category I Presentation Presentation: positive Vertex Vaginal Exam Membranes: positive Membranes intact Speculum Exam Speculum Exam Performed: positive No Other Notes Labor Progress Note/Additional Text: no in labor Plan for Labor Plan For Labor I expect patient to be DC'd or transferred within 96 hours.: Yes Review of Systems Constitutional Reports: Fatigue Eyes Denies: Blurry vision or Floaters Cardiovascular Denies: Irregular heart rate or shortness of breath with exertion Respiratory Denies: Shortness of breath Gastrointestinal Denies: Abdominal pain Genitourinary Denies: Vaginal bleeding Neurological Denies: Headache or General weakness Endocrine Reports: Fatigue [facility] Medical History Medical History Family history of spina bifida sister Vaginal delivery History of pre-eclampsia x 2 Surgical History Surgical History (Updated 05/16/24 @ 19:04 by Elicia Jung MD) H/O knee surgery x 2 H/O wisdom tooth extraction Family History Family History (Updated 05/16/24 @ 19:17 by Elicia Jung MD) Mother Blood coagulation disorder with impaired clot retraction time Protein S deficiency Sister Spina bifida Family history of spina bifida Social History Social History Smoking Status: Never smoker Do you dip or chew tobacco?: No Patient requests smoking cessation consult: No Initiate information on smoking cessation: No Do you feel safe in your home environment?: Yes Suffered physical, verbal, emotional, or financial abuse?: No History of Abuse: No Are you sexually active?: Yes POLST Patient has POLST: No POLST Status: Full Code Conclusion/Plan Problem List (1) Encounter for induction of labor: Plan: start with misoprostol vaginally. baby is large. 37 weeks. process reviewed. induced with all her children. consent signed. (2) : Qualifiers: Weeks of gestation: 37 weeks Qualified Code(s): Z3A.37 - 37 weeks gestation of (3) Chronic hypertension: Plan: dose of nifedipine on admission and then will treat as appropriate. labs do not indicate preeclampsia. p/c ratio is 0.1. creatinine is 0.8. AST and platelets are normal. uric acid is 6.3. (4) Vaccination declined by patient: (5) Rh negative status during : Plan: declined rhogam during . says partner will be getting vas. Qualifiers: Trimester: third trimester Qualified Code(s): O26.893 - Other specified related conditions, third trimester; Z67.91 - Unspecified blood type, Rh negative (6) Depression with anxiety: Plan: continue Wellbutrin. Lab Results Lab results reviewed: Yes 05/16/24 17:51 05/16/24 17:51 Diagnostic Imaging Results Diagnostic Imaging Results: positive Final report reviewed
[2024-05-16] MEDS: lidocaine 1% 20 ML MDV ID PRN (22:19)
[2024-05-16] MEDS: miSOPROStoL 100 MCG TABLET VG SCH (22:21)
[2024-05-17] MEDS: diphenhydrAMINE 25 MG CAPSULE PO PRN (00:07)
[2024-05-17] MEDS: fentaNYL 100 MCG/2 ML VIAL IVP PRN (03:41)
[2024-05-17] MEDS: SODIUM CHLORIDE FLUSH 0.9% 10 ML SYRINGE IVP SCH (06:10)
[2024-05-17] MEDS: PRENATAL VITAMIN TABLET PO SCH (09:23)
[2024-05-17] MEDS: FAMOTIDINE 20 MG/2 ML VIAL IVP SCH (09:23)
[2024-05-17] MEDS: NIFEdipine ER 30 MG TABLET PO SCH (09:23)
--- NOTE | 2024-05-17 09:45 | PROVIDER PROGRESS NOTE ---
Labor Progress Note Uterine Monitoring Uterine Monitoring Mode: positive External toco Contraction Frequency (min/apart): 4 Contraction Intensity: positive Mild to moderate Monitoring Monitor Mode: positive External ultrasound Heart Rate Baseline: 150 Heart Rate Variability: positive Moderate (6-25 bmp) Accelerations: positive Present, 15x15 Decelerations: positive None Strip Review: positive Category I Vaginal Exam Dilation (in cm): 3 Effacement (%): 50 Station: -3 Cervical Position: Posterior Labor Progress Note Labor Progress Note/Additional Text: 29yo at 37.1w admitted for IOL for chronic hypertension - Received misoprostol x2 - Plan to start Pitocin, and AROM. Hoping to deliver unmedicated, without epidural.
[2024-05-17] MEDS: ASPIRIN EC 81 MG TABLET PO SCH (09:49)
[2024-05-17] MEDS: buPROPion XL 150 MG TABLET PO SCH ×2 (09:49→21:27)
[2024-05-17] MEDS: OXYTOCIN/SODIUM CHLORIDE 500 ML IV SCH (10:10)
[2024-05-17] MEDS: ONDANSETRON 4 MG/2 ML VIAL IVP PRN (10:19)
[2024-05-17] MEDS: LACTATED RINGERS 1,000 ML IV SCH (10:52)
[2024-05-17] MEDS: OXYTOCIN/SODIUM CHLORIDE 500 ML IV PRN (16:35)
[2024-05-17] MEDS ORDERED: OXYTOCIN/SODIUM CHLORIDE 500 ML IV PRN (16:36)
[2024-05-17] MEDS ORDERED: SIMETHICONE CHEW 80 MG TABLET PO PRN (16:36)
[2024-05-17] MEDS: KETOROLAC 30 MG/ML VIAL IVP SCH (16:38)
--- NOTE | 2024-05-17 17:01 | DELIVERY NOTE ---
Delivery Note Labor Labor: positive Augmented by ARM and Augmented by oxytocin Delivery Method Infant Delivery Method: positive Spontaneous vaginal delivery Cervical Ripening Method Cervical Ripening Method: positive Misoprostil Presentation Presentation: positive Vertex and NEY - left occiput anterior Nuchal Cord Nuchal Cord: positive None Amniotic Fluid Description Amniotic Fluid Description: positive Clear Episiotomy Type Episiotomy Type: positive None Laceration Laceration: positive None Delivery Outcome Delivery Outcome: positive Livebirth [place]: positive Placed in direct skin contact with mother, Stimulated and [place] used sex: positive Male Cord Cord: positive 3 vessels Placenta Placenta: positive Intact Estimated Blood Loss Estimated Blood Loss (in cc): 200 Post Delivery Events Post Delivery Events: positive No post delivery events Delivery Comments (Free Text/Narrative) Delivery Comments (Free Text/Narrative): AROM 1252, clear. 10/100/0 and maternal pushing with good efforts. Head delivered NEY. Shoulders and body delivered with ease. Time of delivery 1607. Male placed on maternal abdomen. Delayed cord clamping. Fundus firm. Placenta delivered spontaneously and intact. Vagina and perineum inspected- no lacerations. Hemostasis. QBL 200cc. Family bonding at bedside. Rh negative and she declines Rhogam. FOB to complete vasectomy and she states abstinence until this is effective. Reviewed Rh alloimmunization can cause life threatening hemolytic disease of in a future . She expresses understanding and states she will not be again. Ferritin ordered for iron deficiency anemia (4.8 ferritin).
[2024-05-17] MEDS ORDERED: ACETAMINOPHEN 500 MG TABLET PO ONE (18:05)
[2024-05-17] MEDS: ACETAMINOPHEN 500 MG TABLET PO SCH (18:08)
[2024-05-17] MEDS: FERRIC GLUCONATE 125 MG in SODIUM CHLORIDE 0.9% 100ML 100 ML IV ONE (19:36)
[2024-05-17] MEDS ORDERED: buPROPion XL 150 MG TABLET PO SCH (21:21)
[2024-05-17] MEDS: IBUPROFEN 800 MG TABLET PO SCH (21:26)
[2024-05-17] MEDS: DOCUSATE SODIUM 100 MG CAPSULE PO SCH (21:27)
[2024-05-17] MEDS: oxyCODONE 5 MG TABLET PO ONE ×2 (21:35→23:23)
[2024-05-18 06:24] LABS: HCT - HEMATOCRIT 29.5 % (37.0-47.0); HGB - HEMOGLOBIN 9.2 g/dL (12.0-16.0); MEAN CORPUSCULAR HEMOGLOBIN 28.4 pg (27.0-31.0); MEAN CORPUSCULAR HGB CONC 31.2 g/dL (32.0-36.0); MEAN PLATELET VOLUME 11.1 fL (7.9-10.8); RED BLOOD COUNT 3.24 10^6/uL (4.20-5.40); RED CELL DISTRIBUTION WIDTH 14.1 % (12.0-15.0); WHITE BLOOD COUNT 12.5 x10^3/uL (4.8-10.8)
[2024-05-18 06:55] LABS: ALBUMIN 2.8 g/dL (3.2-5.5); BILIRUBIN,TOTAL 0.2 mg/dL (0.2-1.0); CALCIUM 8.3 mg/dL (8.5-10.3); CREATININE 0.6 mg/dL (0.6-1.3); TOTAL PROTEIN 5.5 g/dL (6.4-8.9)
--- NOTE | 2024-05-18 11:16 | PHARMACY PROGRESS NOTE ---
Best Possible Medication History Admit Date and Time: 05/16/24 [id number] Processed by: Pharmacy Medications reviewed in ED?: No Medication History completed: Yes Patient Interview: Completed Secondary Source(s): Physician records and Insurance records [facility] Statement: As the person ultimately responsible for medication therapy, providers are able to order a medication from an existing home medication list in [facility] via the "Reconcile Routine" prior to Confirmation of that medication by support manager. Such practice is discouraged except when the physician, in their clinical judgment, deems that a medical need exists for a medication without regard to previous use.
--- NOTE | 2024-05-18 16:59 | PROVIDER PROGRESS NOTE ---
Subjective Prog Note Date Prog Note Date: 05/18/24 Subjective Subjective: Subjective Patient reports she is doing well. Lochia appropriate. Denies heavy bleeding. Ambulating. Pelvic and abdominal pain well-controlled. Tolerating oral intake. Diet: Regular. Voiding without difficulty. Passing flatus. Denies BM. Patient is bonding with baby in room Breast feeding going well. Denies feeling lightheaded, dizzy or excessively fatigued. Objective General: Alert, oriented, no apparent distress. Cardiovascular: Regular rate. Regular rhythm. Lungs: No increased work of breathing. Abdomen: Uterus firm. Below umbilicus. No guarding or rebound. Extremities: No pain on palpation. No cords palpated. Distal pulses intact. Current Medications Current Medications Current Medications: Current Medications Generic Name Dose Route Start Last Admin Trade Name Freq PRN Reason Stop Dose Admin Acetaminophen 1,000 mg 05/17/24 22:00 05/18/24 07:49 Acetaminophen 500 Mg Tablet PO 1,000 mg Q8HR EMY Administration Bupropion HCl 150 mg 05/17/24 22:00 05/17/24 21:27 Bupropion Xl 150 Mg Tablet PO 150 mg HS EMY Administration Calcium Carbonate/Glycine 1,000 mg 05/16/24 18:12 Calcium Carbonate Chew 500 Mg Tablet PO Q6HR PRN Heartburn Diphenhydramine HCl 50 mg 05/16/24 22:47 05/17/24 00:07 Diphenhydramine 25 Mg Capsule PO 50 mg QPM PRN Administration Insomnia Docusate Sodium 100 mg 05/17/24 21:00 05/18/24 09:04 Docusate Sodium 100 Mg Capsule PO 100 mg BID EMY Administration Famotidine 20 mg 05/17/24 09:00 05/18/24 09:05 Famotidine 20 Mg/2 Ml Vial IVP Not Given DAILY EMY Hydralazine HCl 5 - 10 mg 05/16/24 18:12 Hydralazine Inj 20 Mg/Ml Vial IVP Q20M PRN SBP> or= 160 OR DBP> or= 110 Protocol Oxytocin/Sodium Chloride 500 mls @ 999 mls/hr 05/16/24 18:12 05/17/24 18:30 Pitocin/Sodium Chloride IV Infused PRN PRN Titration POST- HEMORR PREVENTION Protocol 999 MILLIUNIT/MIN Oxytocin/Sodium Chloride 500 mls @ 2 mls/hr 05/17/24 10:00 05/17/24 16:34 Pitocin/Sodium Chloride IV 0 milliunit/min TITR EMY 0 mls/hr Titration Protocol 2 MILLIUNIT/MIN Lactated Ringer's 1,000 mls @ 125 mls/hr 05/17/24 11:00 05/18/24 09:19 Lr IV Infused .Q8H EMY Infusion Oxytocin/Sodium Chloride 500 mls @ 999 mls/hr 05/17/24 16:36 Pitocin/Sodium Chloride IV PRN PRN POST- HEMORR PREVENTION Protocol 999 MILLIUNIT/MIN Ibuprofen 800 mg 05/17/24 22:00 05/18/24 16:20 Ibuprofen 800 Mg Tablet PO 800 mg Q8H EMY Administration Ketorolac Tromethamine 30 mg 05/17/24 17:00 05/17/24 16:38 Ketorolac 30 Mg/Ml Vial IVP 05/20/24 17:01 30 mg ONCE EMY Administration Labetalol HCl 20 - 80 mg 05/16/24 18:12 Labetalol 20 Mg/4 Ml Syringe IVP Q10M PRN SBP> or= 160 OR DBP> or= 110 Protocol Labetalol HCl 20 mg 05/16/24 18:12 Labetalol 20 Mg/4 Ml Syringe IVP .ONCE PRN SBP> or= 160 OR DBP> or= 110 Protocol Labetalol HCl 20 - 40 mg 05/16/24 18:12 Labetalol 20 Mg/4 Ml Syringe IVP Q10M PRN SBP> or= 160 OR DBP> or= 110 Protocol Metoclopramide HCl 5 mg 05/16/24 18:12 Metoclopramide 10 Mg/2 Ml Vial IVP Q6HR PRN Nausea / Vomiting Nifedipine 30 mg 05/17/24 09:00 05/18/24 10:09 Nifedipine Er 30 Mg Tablet PO 30 mg DAILY EMY Administration Nifedipine 10 - 20 mg 05/16/24 18:12 Nifedipine 10 Mg Capsule PO Q20M PRN SBP> or= 160 OR DBP> or= 110 Protocol Ondansetron HCl 4 mg 05/16/24 18:17 05/17/24 10:19 Ondansetron 4 Mg/2 Ml Vial IVP 4 mg Q6HR PRN Administration Nausea / Vomiting Multivit/Folic Acid/Iron 1 tab 05/17/24 08:00 05/18/24 09:04 Vitamin Tablet PO 1 tab DAILYWM EMY Administration Simethicone 80 mg 05/17/24 16:36 Simethicone Chew 80 Mg Tablet PO TID PRN Gas Sodium Chloride 10 ml 05/16/24 18:12 Sodium Chloride Flush 0.9% 10 Ml Syringe IVP PRN PRN NEEDED PER PROVIDER ORDERS Sodium Chloride 10 ml 05/16/24 19:00 05/17/24 16:39 Sodium Chloride Flush 0.9% 10 Ml Syringe IVP 10 ml Q8H EMY Administration Objective Vital Signs/Intake & Output Vital Signs: Vital Signs x48h Temp Pulse Resp BP Pulse Ox 05/18/24 16:45 126/60 05/18/24 14:00 37.3 C 94 H 16 132/83 H 98 Intake & Output: Intake & Output 05/16/24 05/17/24 05/18/24 05/19/24 05:59 05:59 05:59 05:59 Intake Total 1340 / 1340 1000 / 1000 Output Total 500 / 500 Balance 840 / 840 1000 / 1000 Weight (kg) 214 lb Lab Results 05/18/24 06:18 05/18/24 06:18 Other Labs: Lab Results x24hrs 05/18/24 Range/Units 06:18 WBC 12.5 H (4.8-10.8) x10^3/uL RBC 3.24 L (4.20-5.40) 10^6/uL Hgb 9.2 L (12.0-16.0) g/dL Hct 29.5 L (37.0-47.0) % MCV 91.0 (81.0-99.0) fL MCH 28.4 (27.0-31.0) pg MCHC 31.2 L (32.0-36.0) g/dL RDW 14.1 (12.0-15.0) % Plt Count 195 (130-450) 10^3/uL MPV 11.1 H (7.9-10.8) fL Sodium 136 (135-145) mmol/L Potassium 4.0 (3.5-4.5) mmol/L Chloride 107 (101-111) mmol/L Carbon Dioxide 26 (21-32) mmol/L Anion Gap 3.0 L (6-13) BUN 7 (6-20) mg/dL Creatinine 0.6 (0.6-1.3) mg/dL Estimated GFR (MDRD) 118 (>89) Glucose 76 (74-104) mg/dL Calcium 8.3 L (8.5-10.3) mg/dL Total Bilirubin 0.2 (0.2-1.0) mg/dL AST 24 (10-42) IU/L ALT 15 (10-60) IU/L Alkaline Phosphatase 76 (42-121) IU/L Total Protein 5.5 L (6.4-8.9) g/dL Albumin 2.8 L (3.2-5.5) g/dL Globulin 2.7 (2.1-4.2) g/dL Albumin/Globulin Ratio 1.0 (1.0-2.2) Assessment/Plan Problem List (1) Delivery outcome of ordaz : Impression: - day 1 -Routine care -Anticipate discharge tomorrow (2) Chronic hypertension: Impression: Chronic hypertension -Blood pressure remains under good control -Denies signs or symptoms of preeclampsia (3) Encounter for induction of labor: (4) : Qualifiers: Weeks of gestation: 37 weeks Qualified Code(s): Z3A.37 - 37 weeks gestation of (5) Vaccination declined by patient: (6) Rh negative status during : Qualifiers: Trimester: third trimester Qualified Code(s): O26.893 - Other specified related conditions, third trimester; Z67.91 - Unspecified blood type, Rh negative (7) Depression with anxiety:
[2024-05-19 08:33] VITALS: O2SAT 97
--- NOTE | 2024-05-19 13:47 | Discharge Summary ---
"Discharge Summary Admit Date: 05/16/24 Discharge Date: 05/19/24 Discharging Provider: Man Belle MD Code Status: Attempt Resuscitation DIAGNOSES Admission Diagnoses: SIUP @ 37wk cHTN Rh neg H/o depression/anxiety Discharge Diagnoses with Status of Each Condition: Same, delivered HPI History of Present Illness: Alivia is a 29 yo who presented to triage with contractions, and was found to have BPs 150/100s. She was kept for IOL. She had an uncomplicated with an EBL of 200cc, no lacerations. course has been uncomplicated. Today, she reports she is feeling well. Pain is well controlled. Denies RUEDA, vision changes, upper abdominal pain. Swelling increased some today. She is . Reports bleeding has been minimal. Ambulating and urinating without difficulty. Tolerating PO. Has decided she would like to receive Rhogam (previously declined). Would like to go home today. CONSULTS | PROCEDURES Procedures: HOSPITAL COURSE Hospital Course: See above. ALLERGIES Allergies Allergy/AdvReac Type Severity Reaction Status Date / Time Sulfa (Sulfonamide Allergy Hives Verified 06/28/23 13:26 Antibiotics) MEDICATIONS Ambulatory Orders Medication Instructions Recorded Confirmed vitamins no.119-iron 1 ea PO DAILY 11/15/22 05/18/24 fumarate 29 mg-folic acid 1 mg tablet ( 19) bupropion HCl 150 mg 24 hr tablet, 150 mg PO DAILY 06/28/23 05/18/24 extended release nifedipine 30 mg tablet,extended 30 mg PO DAILY 01/23/24 05/18/24 release 24 hr PHYSICAL EXAM AT DISCHARGE General Appearance: positive No acute distress Respiratory: positive No respiratory distress and Breath sounds nml Cardiovascular: positive Regular rate & rhythm Abdomen: positive Non-tender and Other (Fundus firm) Extremities: positive Pedal edema (1+) Neurologic/Psychiatric: positive Mood/affect nml LABS 05/18/24 06:18 05/18/24 06:18 FOLLOW UP Follow Up: Follow up for BP check on Wednesday or Wednesday. TIME SPENT Time Spent in Discharge (Minutes): 30 Discharge Plan Discharge Patient Disposition: Home, Self Care Prescriptions: Continued 19 1 EACH tablet 1 ea PO DAILY bupropion HCl 150 MG tablet extended release 24 hr 150 mg PO DAILY nifedipine 30 MG tablet extended release 24hr 30 mg PO DAILY Discontinued aspirin 81 MG tablet,delayed release (DR/EC) 81 mg PO DAILY Activity Restrictions: Pelvic rest x 6 weeks. Activity Restrictions/Additional Instructions: Follow up for BP check on Wednesday/Wednesday in clinic. Preeclampsia precautions and continued home BP monitoring were discussed. Print Language: Kosovan Patient Instructions: Vaginal After, Preeclampsia Follow-up Care: Fox Padilla MD [Provider Admit Priv/Credential] - (Follow up for BP check on Wednesday/Wednesday)"
[2024-05-19] MEDS: RHO(D) IMMUNE GLOBULIN 300 MCG SYRINGE IM ONE (14:57)
--- NOTE | 2024-05-19 15:57 | Labor Flowsheet ---
Labor Flowsheet Datetime Report Generated by CPN: 05/19/2024 15:57 Datetime: 05/19/2024 13:59 VITAL SIGNS NBP Sys/Shanda/Mean (mmHg): 141 : 90 : 101 Pulse: 99 Datetime: 05/18/2024 13:40 SpO2 (%): 95 Datetime: 05/17/2024 18:34 Stage of : Recovery Respirations: 16 Temperature (C): 37.2 Temperature Route: Oral PAIN Pain Scale: 3 Datetime: 05/17/2024 16:26 Patient Care Comments: skin to skin Datetime: 05/17/2024 16:23 Pain Type: Cramping Datetime: 05/17/2024 16:04 UTERINE ACTIVITY Monitor Mode: External Frequency (min): 3-4 Quality: Strong Duration (sec): 60-90 Pattern: Normal: <= 5 Contractions in 10 Minutes Resting Tone (Palpate): Relaxed Comments: FHR 140s in between pushing and repostioning in bed Datetime: 05/17/2024 16:02 Pain Assessment Comments: Pt requesting epidural LaborFlag: Labor Datetime: 05/17/2024 16:00 MEDICATIONS Pitocin (milliunits): Discontinued Datetime: 05/17/2024 15:58 FHR Baseline Rate : 130 Variability: Moderate 6-25 bpm Accelerations: 15X15 Decelerations: None Category: Category I Datetime: 05/17/2024 15:44 ASSESSMENT A Monitor Mode: External US Datetime: 05/17/2024 15:41 Vital Sign Comments: pt declining VS during transition Datetime: 05/17/2024 15:39 STAGE 2 Pushing: Urge to Push Pushing Position: Pushing with Contractions Datetime: 05/17/2024 15:34 VAGINAL EXAM Dilatation (cm): 10.0 Effacement (%): 100 Exam by: Dr. Cayabyab Datetime: 05/17/2024 15:23 Communication Comments: Dr. Cyabyab at bedside Datetime: 05/17/2024 14:53 Pain Coping: Breathing Through Contractions Comfort Measures: Breathing/Relaxation; Coaching I/O Interventions: Up to BR Datetime: 05/17/2024 14:16 Patient Position/Activity: High Fowlers Datetime: 05/17/2024 14:15 Oxygen Method: Room Air Datetime: 05/17/2024 14:07 Analgesics/Sedatives: Fentanyl (mcg) @ 50 Datetime: 05/17/2024 13:59 Station: -2 Datetime: 05/17/2024 13:57 COMMUNICATION Communication: Provider at Bedside Datetime: 05/17/2024 13:15 FHR Baseline Changes: No Baseline Change Datetime: 05/17/2024 12:52 Membrane Status: Ruptured Membranes Rupture Method: Artificial Amniotic Fluid Color: Clear Datetime: 05/17/2024 12:15 Medication Comments: dr cayabyab reviewed strip. decrease pitocin to 2 mu. plan to reassess for JOSE m Datetime: 05/17/2024 12:00 Contraction Comments: pitocin decreased to 3mu Datetime: 05/17/2024 11:15 Monitor Interventions for UA: [place] Adjusted Datetime: 05/17/2024 10:30 Pitocin Checklist: At Least 1 Acceleration of 15 bpm x 15 Seconds in 30 Minutes or Adequate Variabi lity; No More than 1 Late Deceleration Occurred in Past 30 Minutes; No More than 2 Variable Decelerat ions > 60 Seconds in Duration and decreasing >60 bpm in 30 minutes; No More than 5 Uterine Contractio ns in 10 Minutes for any 20 Minute Interval; Uterus Palpates Soft between Contractions Datetime: 05/17/2024 10:23 PATIENT CARE IV/Blood Work: IV Infusing per Order Datetime: 05/17/2024 09:32 Vaginal Bleeding: None Datetime: 05/17/2024 09:30 Provider Reviewed Strip: Yes Notification Reason: Status Update Datetime: 05/17/2024 06:44 Provider Notified (Name): Dr Cayabyab; oncoming OB provider Datetime: 05/17/2024 06:07 Cervix, Consistency: Soft Cervix, Position: Posterior Datetime: 05/17/2024 04:33 Monitor Interventions for FHR: Ultrasound Adjusted Datetime: 05/17/2024 03:23 Pain Relief Measures: Comfort Measures Datetime: 05/17/2024 02:23 Cervical Ripening Agents: Cytotec @ 50 Datetime: 05/16/2024 21:11 TEACHING Instructional Method: Verbal Teaching Comments: Education given about IV placements Datetime: 05/16/2024 19:36 Plan of Care: Plan of Care Discussed; Induction Unit Routine: [place] to Room Labor/Induction: Cervical Ripening Pain Management: Epidural; Pain Scale/Goals; Comfort Measures Related: Hydration Datetime: 05/16/2024 19:27 MATERNAL ASSESSMENT Level of Consciousness: Alert DTR's/Clonus: No Clonus Headache: Denies Breath Sounds, Left: Clear and Equal Breath Sounds, Right: Clear and Equal Nausea/Vomiting: Denies RUQ Epigastric Pain: Denies
[2024-05-20] MEDS ORDERED: FAMOTIDINE 20 MG TABLET PO SCH (09:00)
== END 2024-05-19 15:20 | disposition home or self-care (01) | DRG 807 ==
LOC: WFO 17:02 → FBP 17:05
PROVIDERS: ADMIT Obstetrics & Gynecology; ATTEND Obstetrics & Gynecology
DX: Z67.91 Unspecified blood type, Rh negative; O99.02 Anemia complicating childbirth; F32.A Depression, unspecified; F41.9 Anxiety disorder, unspecified; Z87.59 Personal history of other complications of pregnancy, childbirth and the puerperium; D50.9 Iron deficiency anemia, unspecified; O26.893 Other specified pregnancy related conditions, third trimester; Z3A.37 37 weeks gestation of pregnancy; Z37.0 Single live birth; O13.4 Gestational [pregnancy-induced] hypertension without significant proteinuria, complicating childbirth; O99.344 Other mental disorders complicating childbirth; Z79.899 Other long term (current) drug therapy